=== PATIENT | female | born 1955 | race Caucasian/White ===

== ENCOUNTER 2018-01-28 20:43 | Emergency (ER) | payer OTHER, SELFPAY ==
[2018-01-28 20:56] VITALS: BP 156/69; PULSE 93; RESP 16; TEMP 37.4; O2SAT 97; BMI 38.7
[2018-01-28 21:05] VITALS: BP 156/69; PULSE 93; RESP 16; TEMP 37.4; O2SAT 97; BMI 38.7
--- NOTE | 2018-01-28 21:05 | ED_ITS ---
HPI - Skin/Abscess/Foreign Bdy <NATACHA Mathew - Last Filed: 01/28/18 21:50> General Chief complaint: Skin/Abscess/Foreign Body Stated complaint: CAT BITE LEFT HAND Time Seen by Provider: 01/28/18 21:04 History of Present Illness HPI narrative: 62-year-old female here for complaint of a cat bite to to her right palmar area over the 1st metacarpal area day before yesterday. Cat is the patient's cat She states that the cat superficially bit her to that area. She states that she cleanse the area well and had no complications until today when she started known noticing increased redness to that area progressing into the right wrist area. She denies any purulent drainage from the area. She denies any fevers or chills. She states that the cat's immunizations were not up -to-date prior to day before yesterday. Patient reports her tetanus shot is up- to-date. Related Data Home Medications Medication Instructions Recorded Confirmed ascorbic acid (vitamin C) #0 09/21/17 Previous Rx's Medication Instructions Recorded simvastatin 20 mg PO HS #90 tab 02/27/17 alprazolam 0.25 mg PO Q8HP PRN #20 tab 03/22/17 citalopram 20 mg PO QDAY #90 tab 03/22/17 hydrocodone-acetaminophen [[place]] 1 - 2 tab PO Q6HP PRN #30 tab 03/22/17 trazodone 100 mg PO HS #90 tab 03/22/17 amoxicillin-pot clavulanate 1 tab PO BID #14 tab 01/28/18 Allergies Allergy/AdvReac Type Severity Reaction Status Date / Time sumatriptan AdvReac Mild HEART Verified 01/28/18 21:47 PALPITATION tamoxifen AdvReac Mild MOOD CHANGE Verified 01/28/18 21:47 Review of Systems <NATACHA Mathew - Last Filed: 01/28/18 21:50> Constitutional Denies chills, Denies fever(s), Denies lethargy and Denies weakness Eyes Denies change in vision, Denies eye discharge, Denies irritation and Denies loss of vision ENT Ears, Nose, Mouth, and Throat: Denies change in voice, Denies neck pain and Denies sore throat Cardiovascular Denies chest pain, Denies irregular heart rhythm, Denies lightheadedness, Denies palpitations, Denies dyspnea, Denies dyspnea on exertion and Denies orthopnea Respiratory Denies cough, Denies dyspnea, Denies dyspnea on exertion and Denies wheezing Gastrointestinal Gastrointestinal: Denies abdominal pain, Denies change in bowel habits, Denies diarrhea, Denies nausea and Denies vomiting Genitourinary Denies hematuria, Denies flank pain, Denies urinary incontinence and Denies urinary urgency Musculoskeletal Denies neck pain Comments: Cat bite to right palm Neurologic Denies loss of vision and Denies weakness Endocrine Denies palpitations Allergic/Immunologic Denies wheezing Exam <NATACHA Mathew - Last Filed: 01/28/18 21:50> Initial Vital Signs Initial Vital Signs: Vital Signs Temperature 99.3 F 01/28/18 20:56 Pulse Rate 93 H 01/28/18 20:56 Respiratory Rate 16 01/28/18 20:56 Blood Pressure 156/69 H 01/28/18 20:56 Pulse Oximetry 97 01/28/18 20:56 Const General: cooperative and well developed Nutritional Appearance: well nourished Orientation: alert, awake, oriented x3 and not confused [facility] Mouth: oral mucosae normal and moist mucous membranes Eyes Conjunctivae: conjunctivae normal Sclera: sclerae normal Pupils: PERRL EOM: EOM intact bilaterally Resp Effort & Inspection: normal respiratory effort, able to speak in complete sentences, no respiratory distress and no use of accessory muscles Auscultation: clear to auscultation bilaterally, no rales, no rhonchi and no wheezes Cardio Rate: regular rate Rhythm: regular rhythm Heart Sounds: no click, no gallops, no murmurs and no rubs Pulses: normal peripheral pulses Skin General: no rashes or lesions noted, No jaundice and No petechiae Extrem Other: Small approximately 4 mm shallow puncture wound to the right palmar area with surrounding erythema. No purulent drainage. Erythema compresses and to the right forearm area. Distal sensation is intact. Distal range of motion is intact. Distal cap refill less than 2 sec. <Luis Briscoe DO - Last Filed: 01/29/18 04:15> Initial Vital Signs Initial Vital Signs: Vital Signs Temperature 99.3 F 01/28/18 20:56 Pulse Rate 93 H 01/28/18 20:56 Respiratory Rate 16 01/28/18 20:56 Blood Pressure 156/69 H 01/28/18 20:56 Pulse Oximetry 97 01/28/18 20:56 Course <NATACHA Mathew - Last Filed: 01/28/18 21:50> Orders Ordered: Discontinued Medications Amoxicillin/Clavulanate Potassium (Augmentin 875-125 Mg) 1 tab PO NOW ONE Stop: 01/28/18 21:19 Last Admin: 01/28/18 21:34 Dose: 1 tab Vital Signs - 8 hr 01/28/18 20:56 01/28/18 21:05 01/28/18 21:55 Temperature 99.3 F 99.3 F 97.6 F Pulse Rate 93 H 93 H 84 Respiratory Rate 16 16 16 Blood Pressure 156/69 H 156/69 H 137/72 H Pulse Oximetry 97 97 95 <Luis Briscoe DO - Last Filed: 01/29/18 04:15> Orders Ordered: Discontinued Medications Amoxicillin/Clavulanate Potassium (Augmentin 875-125 Mg) 1 tab PO NOW ONE Stop: 01/28/18 21:19 Last Admin: 01/28/18 21:34 Dose: 1 tab Vital Signs - 8 hr 01/28/18 20:56 01/28/18 21:05 01/28/18 21:55 Temperature 99.3 F 99.3 F 97.6 F Pulse Rate 93 H 93 H 84 Respiratory Rate 16 16 16 Blood Pressure 156/69 H 156/69 H 137/72 H Pulse Oximetry 97 97 95 MDM - Skin/Abscess/Foreign Bdy <NATACHA Mathew - Last Filed: 01/28/18 21:50> MDM Narrative Medical decision making narrative: Starting mild infection to the right palmar/ wrist area secondary to cat bite will treat with Augmentin with close follow up with primary care provider in the next couple of days for re-evaluation to ensure efficacy. If worsening symptoms follow up sooner or return to the emergency room. low risk for rabies. [id number] Tylenol as needed for any discomfort. For any worsening symptoms return to the emergency room. Patient reports that her tetanus shot is up-to-date. Discharge Plan Departure Patient Disposition: Home, Self-Care Clinical Impression: Cat bite of right hand Discharge Date/Time: 01/28/18 21:56 Interventions: ED Discharge Assessment Last Done: 01/28/18 21:55 Instructions: DI for Cat Bite Activity Restrictions/Additional Instructions: Signs and symptoms presents as infection secondary to a cat bite. You have been placed on oral antibiotics use as directed. Follow up with her primary care provider in the next day or 2 for re-evaluation. For any worsening symptoms return to the emergency room or see her primary care provider sooner. Use [id number] Tylenol as needed for any discomfort. Prescriptions: New amoxicillin-pot clavulanate 875-125 mg tablet 1 tab PO BID Qty: 14 RF: 0 No Action simvastatin 20 MG tablet 20 mg PO HS Qty: 90 RF: 3 hydrocodone-acetaminophen [[place]] 5 MG/325 MG tablet 1 - 2 tab PO Q6HP PRNQty: 30 RF: 0 alprazolam 0.25 MG tablet 0.25 mg PO Q8HP PRNQty: 20 RF: 0 citalopram 20 MG tablet 20 mg PO QDAY Qty: 90 RF: 3 trazodone 100 MG tablet 100 mg PO HS Qty: 90 RF: 3 ascorbic acid (vitamin C) 500 MG tablet Qty: 0 RF: 0 Referrals: Ahsan Pittman MD [Primary Care Provider] - <Luis Briscoe DO - Last Filed: 01/29/18 04:15> Cosign ED Attending Fatmataature Attestation: I was immediately available in the department for consultation. Documentation has been reviewed. I agree with assessment and plan.
--- NOTE | 2018-01-28 21:08 | PC.NURSE ---
PT states her cat bit right thumb area, concerned about infection, area is red and begining to radiate to forearm with 4/10 pain. Tx dev technical mgr surgical scrub, listerine and neosporin. States upto date on tetanus.
[2018-01-28] MEDS: AMOXICILLIN/CLAV 875/125 MG 1 TAB PO (21:34)
[2018-01-28 21:55] VITALS: BP 137/72; PULSE 84; RESP 16; TEMP 36.4; O2SAT 95
== END 2018-01-28 21:56 | disposition home or self-care (01) ==
PROVIDERS: Emergency Provider Nurse Practitioner Family; Family Provider Family Medicine; PCP Family Medicine
DX: S61.452A Open bite of left hand, initial encounter (principal); W55.01XA Bitten by cat, initial encounter
CPT/HCPCS: 99282; 99283

== ENCOUNTER → 2018-03-01 10:51 | Outpatient (CLI) | payer OTHER, SELFPAY ==
--- NOTE | 2018-03-01 | DI.MG.S_ITS ---
BILATERAL DIGITAL SCREENING MAMMOGRAM 3D/2D WITH CAD POST LUMPECTOMY: 03/01/2018 CLINICAL: Routine screening. Personal history of right breast cancer. Family history of breast cancer. Comparison is made to exams dated: 01/27/2017 mammogram, 01/27/2016 mammogram, and 01/20/2015 mammogram - [facility]. The tissue of both breasts is heterogeneously dense. This may lower the sensitivity of mammography. Current study was also evaluated with a Computer Aided Detection (CAD) system. No significant masses, calcifications, or other findings are seen in either breast. There has been no significant interval change. IMPRESSION: NEGATIVE There is no mammographic evidence of malignancy. A 1 year screening mammogram is recommended. This exam was interpreted at Station ID: [id number]. NOTE: For mammograms, a report in lay terms will be sent to the patient. Approximately 15% of breast malignancies will not be visualized mammographically. In the management of a palpable breast mass, a negative mammogram must not discourage biopsy of a clinically suspicious lesion. Electronically Signed By: Vee brody/angella:03/01/2018 11:20:05 letter sent: Normal Exam ACR BI-RADS Category 1: Negative 3341F
== END ==
PROVIDERS: PCP Family Medicine; Visit Provider Family Medicine
DX: Z12.31 Encounter for screening mammogram for malignant neoplasm of breast (principal); Z85.3 Personal history of malignant neoplasm of breast; Z80.3 Family history of malignant neoplasm of breast
CPT/HCPCS: 77063; 77067

== ENCOUNTER → 2018-04-16 11:28 | Outpatient (CLI) | payer OTHER, SELFPAY ==
[2018-04-16 12:34] LABS: Add Manual Diff / Slide Review NO; Basophils Percent Auto 0.9 % (0-2); Hematocrit 40.2 % (36-46); Hemoglobin 13.7 g/dL (12.0-16.0); Lymphocytes Percent Auto 21.9 % (25-40); Mean Corpuscular HGB Conc 34.1 % (30-36); Mean Corpuscular Hemoglobin 31.1 PG (26-34); Mean Corpuscular Volume 91.2 fL (80-100); Monocytes Percent Auto 6.6 % (3-14); Neutrophils Absolute Auto 2700 /uL (3000-5900); Neutrophils Percent Auto 67.6 % (50-75); Platelet Count 164 X10^3/uL (150-400); Red Blood Cell Count 4.41 X10^6/uL (4.0-5.2); Red Cell Distribution Width 13.1 % (11.6-14.8)
[2018-04-16 12:38] LABS: Alanine Aminotransferase 22 IU/L (9-52); Albumin 4.2 g/dL (3.5-5.0); Albumin Globulin Ratio 1.4 (1.0-2.8); Alkaline Phosphatase 79 U/L (38-126); Aspartate Aminotransferase 18 IU/L (14-36); BUN Creatinine Ratio 18.9 (6-22); Bilirubin Total 0.6 mg/dL (0.2-1.3); Blood Urea Nitrogen 17 mg/dL (7-17); Calcium 9.3 mg/dL (8.4-10.2); Carbon Dioxide 31 mmol/L (22-32); Chloride 104 mmol/L (98-107); Cholesterol 160 mg/dL (140-199); Estimated Glomerular Filt Rate > 60.0 mL/min (>60); Glucose 103 mg/dL (80-110); HDL Cholesterol 49 mg/dL (40-60); HEMOLYSIS < 15 (0-50); LDL Cholesterol Calculated 98 mg/dL (<100); Potassium 4.6 mmol/L (3.4-5.1); Sodium 142 mmol/L (137-145); Total Protein 7.2 g/dL (6.3-8.2); Triglycerides 65 mg/dL (35-150)
[2018-04-16 13:10] LABS: Thyroid Stimulating Hormone 0.97 uIU/mL (0.47-4.68)
== END ==
PROVIDERS: PCP Family Medicine; Visit Provider Family Medicine
DX: Z00.00 Encounter for general adult medical examination without abnormal findings (principal)
CPT/HCPCS: 36415; 80053; 80061; 84443; 85025

== ENCOUNTER → 2018-06-22 11:02 | Outpatient (CLI) | payer OTHER, SELFPAY ==
--- NOTE | 2018-06-21 10:40 | ONC.SCHED ---
Joanie at [facility] is putting new auth for this patient for upcoming visit
[2018-06-22 12:08] LABS: Alanine Aminotransferase 31 IU/L (9-52); Albumin 4.3 g/dL (3.5-5.0); Albumin Globulin Ratio 1.4 (1.0-2.8); Alkaline Phosphatase 78 U/L (38-126); Aspartate Aminotransferase 22 IU/L (14-36); BUN Creatinine Ratio 25.6 (6-22); Bilirubin Total 0.4 mg/dL (0.2-1.3); Blood Urea Nitrogen 23 mg/dL (7-17); Calcium 9.2 mg/dL (8.4-10.2); Carbon Dioxide 26 mmol/L (22-32); Chloride 104 mmol/L (98-107); Estimated Glomerular Filt Rate > 60.0 mL/min (>60); Glucose 100 mg/dL (80-110); HEMOLYSIS < 15 (0-50); Potassium 4.6 mmol/L (3.4-5.1); Sodium 141 mmol/L (137-145); Total Protein 7.3 g/dL (6.3-8.2)
--- NOTE | 2018-06-22 14:20 | PC.NURSE ---
pre visit labs stable, [place] 2729 pending. Provider visit 06/27
[2018-06-23 15:40] LABS: Cancer Antigen 27.29 15 U/mL (< 38)
== END ==
PROVIDERS: PCP Family Medicine; Visit Provider Nurse Practitioner Gerontology
DX: Z85.3 Personal history of malignant neoplasm of breast (principal)
CPT/HCPCS: 36415; 80053; 86300

== ENCOUNTER → 2018-07-13 08:55 | Outpatient (CLI) | payer OTHER, SELFPAY ==
--- NOTE | 2018-07-13 08:58 | DI.US.S_ITS ---
ULTRASOUND OF RIGHT BREAST: 07/13/2018 CLINICAL: Palpable right breast lump felt by clinician only. Comparison is made to exams dated: 07/13/2018 mammogram, 03/01/2018 mammogram, 01/27/2017 mammogram, 01/27/2016 mammogram, and 08/03/2015 mammogram - [facility]. Color flow ultrasound of the right breast was performed on the areas of interest. Ruffin scale images of the real-time examination were reviewed. IMPRESSION: NEGATIVE There is no sonographic evidence of malignancy. There is no mammographic or sonographic abnormality seen in the right breast to correspond with the palpable abnormality, however, clinical followup is recommended. A 1 year screening mammogram is recommended. This exam was interpreted at Station ID: [id number]. Electronically Signed By: Vee Hodges M.D. lk/:07/13/2018 10:11:38 letter sent: Normal Exam Ultrasound BI-RADS: 1 Negative
--- NOTE | 2018-07-13 08:58 | DI.MG.S_ITS ---
UNILATERAL RIGHT DIGITAL DIAGNOSTIC MAMMOGRAM 3D/2D POST LUMPECTOMY: 07/13/2018 CLINICAL: Right breast lump. Comparison is made to exams dated: 03/01/2018 mammogram, 01/27/2017 mammogram, and 01/27/2016 mammogram - [facility]. The tissue of right breast is heterogeneously dense. This may lower the sensitivity of mammography. There is a benign post surgical scar in the right breast. No significant masses, calcifications, or other findings are seen in the breast. IMPRESSION: INCOMPLETE: NEEDS ADDITIONAL IMAGING EVALUATION There is no mammographic abnormality seen in the right breast to correspond with the palpable abnormality, however, targeted ultrasound of the right breast is recommended and will be performed immediately following this exam. This exam was interpreted at Station ID: [id number]. NOTE: For mammograms, a report in lay terms will be sent to the patient. Approximately 15% of breast malignancies will not be visualized mammographically. In the management of a palpable breast mass, a negative mammogram must not discourage biopsy of a clinically suspicious lesion. Electronically Signed By: Vee Hodges M.D. lk/:07/13/2018 09:33:37 letter sent: Additional Imaging Needed ACR BI-RADS Category 0: Incomplete 3340F
== END ==
PROVIDERS: PCP Family Medicine; Visit Provider Internal Medicine Hematology & Oncology
DX: R92.8 Other abnormal and inconclusive findings on diagnostic imaging of breast (principal); N63.10 Unspecified lump in the right breast, unspecified quadrant
CPT/HCPCS: 76642; 77065; G0279

== ENCOUNTER → 2018-07-19 15:00 | Oncology outpatient (ONC) | payer OTHER, SELFPAY ==
[2018-06-28 09:43] VITALS: BP 143/70; PULSE 90; RESP 18; TEMP 36.8; O2SAT 97
--- NOTE | 2018-06-28 09:59 | ONC.PN ---
PN -Subjective Interval history: 63-year-old female with previous history of right breast DCIS. She was diagnosed in 2004. Patient underwent right breast lumpectomy with right-sided lymph node dissection. Patient then received radiation treatment followed by 5 years of tamoxifen. Since then patient has been followed regularly. Patient presents here today for scheduled follow-up. Clinically patient reports good energy. Good appetite. No new bone pain. No SOB. No CP. A little bit bloated lately in the lower abdomen and it comes and goes. usually constipation, but loose for the last couple of weeks. Had mammogram in Mar 02, 2018. which was normal. A little bit more tired for the last couple of days. - Additional ROS All systems PM: reviewed and no additional remarkable complaints except as stated Home Medications and Allergies Home Medications Medication Instructions Recorded Confirmed Type cholecalciferol (vitamin D3) 1,000 1,000 unit PO DAILY 04/18/18 06/28/18 History unit capsule citalopram 20 mg tablet 20 mg PO QDAY #90 tab 04/18/18 06/28/18 Rx simvastatin 20 mg tablet 20 mg PO HS #90 tab 04/18/18 06/28/18 Rx tolterodine ER 4 mg 4 mg PO DAILY #30 cap 04/18/18 06/28/18 Rx capsule,extended release 24 hr trazodone 100 mg tablet 100 mg PO HS #90 tab 04/18/18 06/28/18 Rx hydrocodone 5 mg-acetaminophen 325 1 - 2 tab PO Q6HP PRN #42 tab 04/24/18 06/28/18 Rx mg tablet Allergies Allergy/AdvReac Type Severity Reaction Status Date / Time sumatriptan AdvReac Mild HEART Verified 04/18/18 14:14 PALPITATION tamoxifen AdvReac Mild MOOD CHANGE Verified 04/18/18 14:14 Exam Vital signs: Last Vital Signs Temp 98.2 F 06/28/18 09:43 Pulse 90 06/28/18 09:43 Resp 18 06/28/18 09:43 BP 143/70 H 06/28/18 09:43 Pulse Ox 97 06/28/18 09:43 ECOG 1 - Constitutional positive no acute distress, positive obese, positive cooperative - Routine HEENT Exam Head: Present: normocephalic, atraumatic Eye: Present: EOMI, PERRL, normal accommodation. Absent: conjunctival icterus ENT: Present: mucous membranes moist - Routine Neck Exam Present: supple. Absent: JVD, lymphadenopathy, thyromegaly - Detailed Breast Exam left Inspection: Absent: peau d'orange, nipple discharge, area of retraction, discharge Palpation: Absent: mass, tenderness, induration right Inspection: Absent: peau d'orange, nipple discharge, area of retraction Comments: Between 12 and 3:00 a.m. at the right breast, there are irregularly shaped lumpy breast tissues underneath the skin with some tenderness. - Routine Respiratory Exam Present: Clear to auscultation bilaterally. Absent: wheezes - Routine Cardiovascular Exam Present: RRR, S1, S2. Absent: murmur, gallop, rubs, S3 - Routine Abdominal Exam Present: soft, normoactive bowel sounds. Absent: tenderness, organomegaly - Routine Neurological Exam Present: alert, oriented X3, CN II-XII intact, normal reflexes, normal tone. Absent: sensory deficit, motor deficit - Routine Psychiatric Exam Present: normal affect, normal thought process, cooperative, good insight, good judgment Results - Labs Reviewed. - Imaging Additional studies: Procedures Insertion of intraocular lens prosthesis at time of cataract extraction, one-stage (06/24/14) Phacoemulsification and aspiration of cataract (06/24/14) Assessment and Plan (1) Ductal carcinoma in situ (DCIS) of right breast Problem details: Rright breast DCIS diagnosed in 2004, status post right breast lumpectomy with right-sided lymph node dissection, adjuvant radiation treatment followed by 5 years of tamoxifen Assessment and plan: Clinically I do not think there is any indication to suggest disease recurrence or metastasis. However on my physical examination, the right breast has an area between 12 and 3:00, which is irregular shaped and lumpy. I talked with the patient that it could represent post-surgical changes, for example, scar formation. I will proceed with a ultrasound study of that area and I will see the patient after the scan. If it is normal, I will see the patient once a year with mammogram.
[2018-07-19 15:46] VITALS: BP 151/75; PULSE 69; RESP 18; TEMP 36.7; O2SAT 98
--- NOTE | 2018-07-19 15:59 | ONC.PN ---
PN -Subjective Interval history: 63-year-old female with previous history of right breast DCIS. She was diagnosed in 2004. Patient underwent right breast lumpectomy with right-sided lymph node dissection. Patient then received radiation treatment followed by 5 years of tamoxifen. She had mammogram in Mar 02, 2018. which was normal. A little bit more tired for the last couple of days. During her previous visit on 06/28/2018, on physical examination there were irregularly shaped tender lumpy breast tissues between 12 and 3:00 a.m. in the right breast. Therefore on 07/13/2018 patient underwent dedicated mammogram as well as sonogram. There is no sonographic evidence of malignancy and there is no mammographic or sonographic abnormality in the right breast. Patient presents here today for follow-up of the results. Clinically, patient did not report any new signs or symptoms. - Additional ROS All systems PM: reviewed and no additional remarkable complaints except as stated Home Medications and Allergies Home Medications Medication Instructions Recorded Confirmed Type cholecalciferol (vitamin D3) 1,000 1,000 unit PO DAILY 04/18/18 06/28/18 History unit capsule citalopram 20 mg tablet 20 mg PO QDAY #90 tab 04/18/18 06/28/18 Rx simvastatin 20 mg tablet 20 mg PO HS #90 tab 04/18/18 06/28/18 Rx tolterodine ER 4 mg 4 mg PO DAILY #30 cap 04/18/18 06/28/18 Rx capsule,extended release 24 hr trazodone 100 mg tablet 100 mg PO HS #90 tab 04/18/18 06/28/18 Rx hydrocodone 5 mg-acetaminophen 325 1 - 2 tab PO Q6HP PRN #42 tab 04/24/18 06/28/18 Rx mg tablet Allergies Allergy/AdvReac Type Severity Reaction Status Date / Time sumatriptan AdvReac Mild HEART Verified 04/18/18 14:14 PALPITATION tamoxifen AdvReac Mild MOOD CHANGE Verified 04/18/18 14:14 Exam Vital signs: Last Vital Signs Temp 98.0 F 07/19/18 15:46 Pulse 69 07/19/18 15:46 Resp 18 07/19/18 15:46 BP 151/75 H 07/19/18 15:46 Pulse Ox 98 07/19/18 15:46 ECOG 1 Narrative: Constitutional: WDWN, NAD, obese, well groomed, pleasant and cooperative. HEENT: NCAT, EOMI, PERRLA, anicteric sclera, no hearing difficulty; Oral mucus membrane moist and without ulcers. Neck: Supple, symmetrical, and tracheal midline; No palpable thyromegaly and no palpable lymph nodes. Respiratory: No use of accessory muscles. Clear to auscultation, and no wheezes or rales or rubs. Cardiovascular: Regular rate and rhythm, S1 and S2 normal, no murmurs gallops or rubs. No JVD. No pitting edema of lower extremities. Abdomen: Soft, nontender, non-distended, bowel sounds normal, no palpable organomegaly, no hernia, no palpable masses. Lower extremities: No palpable pedal edema. Lymphatic: no palpable lymph nodes in the neck, axillae, or groins. Musculoskeletal: normal gait and station, no clubbing, no cyanosis, no pitting edema. Skin: no rashes, no ulcers, no petechiae Neurological: Awake and alert and oriented x3. CN II-XII grossly intact. No focal motor or sensory deficit. Psychiatric: Good judgment, good insight, normal affect, normal thought process, cooperative, no depression, no anxiety. Breast exam: deferred Results - Labs Mammogram and sonogram results were reviewed with patient. - Imaging Additional studies: Procedures Insertion of intraocular lens prosthesis at time of cataract extraction, one-stage (06/24/14) Phacoemulsification and aspiration of cataract (06/24/14) Assessment and Plan (1) Ductal carcinoma in situ (DCIS) of right breast Problem details: Rright breast DCIS diagnosed in 2004, status post right breast lumpectomy with right-sided lymph node dissection, adjuvant radiation treatment followed by 5 years of tamoxifen Assessment and plan: I reviewed the mammogram as well as the sonogram results with the patient. I talked with her that there is no evidence to suggest any abnormal findings. I talked to her that the results are very reassuring. I will have her come back after her next yearly mammogram screening in Feb 2019.
--- NOTE | 2018-07-19 16:04 | P.PNONC_ITS ---
PN -Subjective Interval history: 63-year-old female with previous history of right breast DCIS. She was diagnosed in 2004. Patient underwent right breast lumpectomy with right-sided lymph node dissection. Patient then received radiation treatment followed by 5 years of tamoxifen. She had mammogram in Mar 02, 2018. which was normal. A little bit more tired for the last couple of days. During her previous visit on 06/28/2018, on physical examination there were irregularly shaped tender lumpy breast tissues between 12 and 3:00 a.m. in the right breast. Therefore on 2017 patient underwent dedicated mammogram as well as sonogram. There is no sonographic evidence of malignancy and there is no mammographic or sonographic abnormality in the right breast. Patient presents here today for follow-up of the results. Clinically, patient did not report any new signs or symptoms. - Additional ROS All systems PM: reviewed and no additional remarkable complaints except as stated Home Medications and Allergies Home Medications Medication Instructions Recorded Confirmed Type cholecalciferol (vitamin D3) 1,000 1,000 unit PO DAILY 04/18/18 06/28/18 History unit capsule citalopram 20 mg tablet 20 mg PO QDAY #90 tab 04/18/18 06/28/18 Rx simvastatin 20 mg tablet 20 mg PO HS #90 tab 04/18/18 06/28/18 Rx tolterodine ER 4 mg 4 mg PO DAILY #30 cap 04/18/18 06/28/18 Rx capsule,extended release 24 hr trazodone 100 mg tablet 100 mg PO HS #90 tab 04/18/18 06/28/18 Rx hydrocodone 5 mg-acetaminophen 325 1 - 2 tab PO Q6HP PRN #42 tab 04/24/18 Rx mg tablet Allergies Allergy/AdvReac Type Severity Reaction Status Date / Time sumatriptan AdvReac Mild HEART Verified 04/18/18 14:14 PALPITATION tamoxifen AdvReac Mild MOOD CHANGE Verified 04/18/18 14:14 Exam Vital signs: Last Vital Signs Temp 98.0 F 07/19/18 15:46 Pulse 69 07/19/18 15:46 Resp 18 07/19/18 15:46 BP 151/75 H 07/19/18 15:46 Pulse Ox 98 07/19/18 15:46 ECOG 1 Narrative: Constitutional: WDWN, NAD, obese, well groomed, pleasant and cooperative. HEENT: NCAT, EOMI, PERRLA, anicteric sclera, no hearing difficulty; Oral mucus membrane moist and without ulcers. Neck: Supple, symmetrical, and tracheal midline; No palpable thyromegaly and no palpable lymph nodes. Respiratory: No use of accessory muscles. Clear to auscultation, and no wheezes or rales or rubs. Cardiovascular: Regular rate and rhythm, S1 and S2 normal, no murmurs gallops or rubs. No JVD. No pitting edema of lower extremities. Abdomen: Soft, nontender, non-distended, bowel sounds normal, no palpable organomegaly, no hernia, no palpable masses. Lower extremities: No palpable pedal edema. Lymphatic: no palpable lymph nodes in the neck, axillae, or groins. Musculoskeletal: normal gait and station, no clubbing, no cyanosis, no pitting edema. Skin: no rashes, no ulcers, no petechiae Neurological: Awake and alert and oriented x3. CN II-XII grossly intact. No focal motor or sensory deficit. Psychiatric: Good judgment, good insight, normal affect, normal thought process , cooperative, no depression, no anxiety. Breast exam: deferred Results - Labs Mammogram and sonogram results were reviewed with patient. - Imaging Additional studies: Procedures Insertion of intraocular lens prosthesis at time of cataract extraction, one- stage (06/24/14) Phacoemulsification and aspiration of cataract (06/24/14) Assessment and Plan (1) Ductal carcinoma in situ (DCIS) of right breast Problem details: Rright breast DCIS diagnosed in 2004, status post right breast lumpectomy with right-sided lymph node dissection, adjuvant radiation treatment followed by 5 years of tamoxifen Assessment and plan: I reviewed the mammogram as well as the sonogram results with the patient. I talked with her that there is no evidence to suggest any abnormal findings. I talked to her that the results are very reassuring. I will have her come back after her next yearly mammogram screening in Feb 2019.
== END ==
PROVIDERS: PCP Family Medicine; Visit Provider Internal Medicine Hematology & Oncology
DX: Z09 Encounter for follow-up examination after completed treatment for conditions other than malignant neoplasm (principal); Z86.000 Personal history of in-situ neoplasm of breast
CPT/HCPCS: 99213; 99214

== ENCOUNTER → 2019-04-24 09:04 | Outpatient (CLI) | payer OTHER, SELFPAY ==
--- NOTE | 2019-04-24 | DI.MG.S_ITS ---
BILATERAL DIGITAL SCREENING MAMMOGRAM 3D/2D WITH CAD: 04/24/2019 CLINICAL: Routine screening. Personal history of right breast cancer. Family history of breast cancer. Comparison is made to exams dated: 03/01/2018 mammogram, 01/27/2017 mammogram, and 01/27/2016 mammogram - [facility]. The tissue of both breasts is heterogeneously dense. This may lower the sensitivity of mammography. Current study was also evaluated with a Computer Aided Detection (CAD) system. No significant masses, calcifications, or other findings are seen in either breast. There has been no significant interval change. IMPRESSION: NEGATIVE There is no mammographic evidence of malignancy. A 1 year screening mammogram is recommended. This exam was interpreted at Station ID: [id number]. NOTE: For mammograms, a report in lay terms will be sent to the patient. Approximately 15% of breast malignancies will not be visualized mammographically. In the management of a palpable breast mass, a negative mammogram must not discourage biopsy of a clinically suspicious lesion. Electronically Signed By: Praneeth mendez/angella:04/24/2019 15:55:24 letter sent: Normal Exam ACR BI-RADS Category 1: Negative 3341F
[2019-04-24 09:39] LABS: Add Manual Diff / Slide Review NO; Basophils Absolute Auto 100 /uL (0-100); Basophils Percent Auto 1.4 % (0-2); Eosinophils Absolute Auto 100 /uL (0-450); Eosinophils Percent Auto 3.4 % (2-4); Hematocrit 39.7 % (36-46); Hemoglobin 13.5 g/dL (12.0-16.0); Lymphocytes Absolute Auto 1000 /uL (1100-4500); Lymphocytes Percent Auto 23.3 % (25-40); Mean Corpuscular Hemoglobin 30.9 PG (26-34); Mean Corpuscular Volume 90.8 fL (80-100); Monocytes Absolute Auto 300 /uL (0-900); Monocytes Percent Auto 7.6 % (3-14); Neutrophils Absolute Auto 2600 /uL (1500-7000); Neutrophils Percent Auto 64.3 % (50-75); Platelet Count 153 X10^3/uL (150-400); Red Blood Cell Count 4.37 X10^6/uL (4.0-5.2); Red Cell Distribution Width 13.1 % (11.6-14.8); White Blood Cell Count 4.1 X10^3/uL (4.5-11.0)
[2019-04-24 09:43] LABS: Appearance Urine UA CLEAR; Bilirubin Urine UA NEGATIVE (NEGATIVE); Color Urine UA YELLOW; Glucose Urine UA NEGATIVE (Negative); Ketones Urine UA NEGATIVE (NEGATIVE); Leukocyte Esterase Urine UA 2+ (NEGATIVE); Nitrite Urine UA NEGATIVE (Negative); Occult Blood Urine UA TRACE-LYSED (Negative); Protein Urine UA NEGATIVE (Negative); Specific Gravity Urine UA 1.015 (1.000-1.035); Urobilinogen Urine UA 0.2 E.U./dL (0.2)
[2019-04-24 09:56] LABS: Bacteria Urine Many (>30); Culture Indicated Urine Specimen Cultured; RBC Urine 1-5/HPF (0-5/HPF); Renal Epithelial Cells Urine 0-1/HPF (0-1/HPF); Squamous Epithelial Cell Urine 1-5 /HPF (0-5/HPF); Transitional Epi Cells Urine 1-5/HPF (0-5/HPF); WBC Urine 10-30/HPF (0-5/HPF)
[2019-04-24 10:00] LABS: Hemoglobin A1C% w Est Avg Glu 5.4 % (4.0-6.0)
[2019-04-24 10:16] LABS: Alanine Aminotransferase 26 IU/L (9-52); Albumin 4.2 g/dL (3.5-5.0); Albumin Globulin Ratio 1.6 (1.0-2.8); Alkaline Phosphatase 89 U/L (38-126); Aspartate Aminotransferase 23 IU/L (14-36); BUN Creatinine Ratio 26.3 (6-22); Bilirubin Total 0.6 mg/dL (0.2-1.3); Blood Urea Nitrogen 21 mg/dL (7-17); Calcium 9.4 mg/dL (8.4-10.2); Carbon Dioxide 28 mmol/L (22-32); Chloride 105 mmol/L (98-107); Cholesterol 179 mg/dL (140-199); Estimated Glomerular Filt Rate > 60.0 mL/min (>60); Globulin 2.7 g/dL (1.7-4.1); Glucose 90 mg/dL (80-110); HDL Cholesterol 50 mg/dL (40-60); HEMOLYSIS < 15 (0-50); LDL Cholesterol Calculated 113 mg/dL (<100); Potassium 4.4 mmol/L (3.4-5.1); Sodium 139 mmol/L (137-145); Total Protein 6.9 g/dL (6.3-8.2); Triglycerides 81 mg/dL (35-150)
[2019-04-24 10:38] LABS: Thyroid Stimulating Hormone 2.41 uIU/mL (0.47-4.68)
== END ==
PROVIDERS: PCP Family Medicine; Visit Provider Family Medicine
DX: Z01.818 Encounter for other preprocedural examination (principal); Z01.812 Encounter for preprocedural laboratory examination; Z13.1 Encounter for screening for diabetes mellitus; Z12.31 Encounter for screening mammogram for malignant neoplasm of breast; D05.11 Intraductal carcinoma in situ of right breast; Z80.3 Family history of malignant neoplasm of breast; N39.9 Disorder of urinary system, unspecified; R73.9 Hyperglycemia, unspecified
CPT/HCPCS: 36415; 77063; 77067; 80053; 80061; 81001; 83036; 84443; 85025; 87086; 93005

== ENCOUNTER → 2019-07-10 10:04 | Outpatient (CLI) | payer OTHER, SELFPAY ==
--- NOTE | 2019-07-10 | DI.US.S_ITS ---
PROCEDURE: US PERIPH VENOUS LOW EXTREM LT INDICATIONS: PAIN IN LEFT LEG, S/P PARTIAL KNEE REPLACEMENT 05-29-19 TECHNIQUE: Real-time imaging, as well as color and pulse Doppler interrogation, were performed of the lower extremity deep veins from the inguinal ligament to the popliteal fossa. COMPARISON: None. FINDINGS: The common femoral, femoral and popliteal veins are normally compressible, and free of intraluminal thrombus. Color and pulse Doppler demonstrate normal phasic intraluminal flow. There is normal augmentation response to distal compression maneuver. IMPRESSION: No DVT found left leg. Dictated by: Drake Vigil M.D. on 07/10/2019 at 15:06 Approved by: Drake Vigil M.D. on 07/10/2019 at 15:07
== END ==
PROVIDERS: Family Provider Family Medicine; PCP Family Medicine; Visit Provider Orthopaedic Surgery
DX: M79.605 Pain in left leg (principal); Z96.652 Presence of left artificial knee joint
CPT/HCPCS: 93971

== ENCOUNTER → 2019-09-04 12:28 | Outpatient (CLI) | payer OTHER, SELFPAY ==
[2019-09-04 13:25] LABS: Add Manual Diff / Slide Review NO; Basophils Absolute Auto 0 /uL (0-100); Basophils Percent Auto 0.8 % (0-2); Eosinophils Absolute Auto 100 /uL (0-450); Eosinophils Percent Auto 2.7 % (2-4); Hematocrit 41.4 % (36-46); Lymphocytes Absolute Auto 900 /uL (1100-4500); Mean Corpuscular HGB Conc 33.8 % (30-36); Mean Corpuscular Hemoglobin 30.5 PG (26-34); Mean Corpuscular Volume 90.4 fL (80-100); Monocytes Absolute Auto 400 /uL (0-900); Neutrophils Absolute Auto 3900 /uL (1500-7000); Neutrophils Percent Auto 72.5 % (50-75); Platelet Count 185 X10^3/uL (150-400); Red Blood Cell Count 4.58 X10^6/uL (4.0-5.2); Red Cell Distribution Width 13.2 % (11.6-14.8); White Blood Cell Count 5.3 X10^3/uL (4.5-11.0)
[2019-09-04 14:09] LABS: BUN Creatinine Ratio 22.2 (6-22); Blood Urea Nitrogen 20 mg/dL (7-17); Calcium 9.7 mg/dL (8.4-10.2); Carbon Dioxide 27 mmol/L (22-32); Chloride 102 mmol/L (98-107); Estimated Glomerular Filt Rate > 60.0 mL/min (>60); Glucose 96 mg/dL (80-110); HEMOLYSIS < 15 (0-50); Potassium 4.4 mmol/L (3.4-5.1); Sodium 140 mmol/L (137-145)
[2019-09-06 15:09] LABS: Cancer Antigen 27.29 18 U/mL (< 38)
== END ==
PROVIDERS: Family Provider Family Medicine; PCP Family Medicine; Visit Provider Family Medicine
DX: D05.11 Intraductal carcinoma in situ of right breast (principal); R30.0 Dysuria; R39.15 Urgency of urination
CPT/HCPCS: 36415; 80048; 85025; 86300; 87086

== ENCOUNTER → 2019-09-04 12:33 | Outpatient (CLI) | payer OTHER, SELFPAY ==
--- NOTE | 2019-09-04 12:35 | DI.RAD.S_ITS ---
PROCEDURE: XR ANKLE LT MIN 3V INDICATIONS: pain TECHNIQUE: 3 views of the ankle were acquired. COMPARISON: None. FINDINGS: Bones: No fractures or dislocations. Ankle mortise is normally aligned. No suspicious bony lesions. Tiny calcific density projected in the subcutaneous soft tissues of the hindfoot, however no definite donor site and this finding technically indeterminate. Chronic plantar calcaneal spur. Diffuse hindfoot and midfoot degenerative sclerosis and spurring Soft tissues: No tibiotalar joint effusion. Achilles tendon appears normal. IMPRESSION: No definite fracture. If the patient's symptoms do not improve recommend followup radiographs in 10 days to assess for healing sclerosis/occult injury. A punctate calcific density projecting in the soft tissues of the lateral hindfoot is doubtful fracture fragment, probably dystrophic although technically indeterminate. Dictated by: Buddy Espinoza M.D. on 09/04/2019 at 14:45 Approved by: Buddy Espinoza M.D. on 09/04/2019 at 14:55
--- NOTE | 2019-09-04 12:35 | DI.RAD.S_ITS ---
PROCEDURE: XR SHOULDER LT MIN 2V INDICATIONS: pain TECHNIQUE: 3 views of the shoulder were acquired. COMPARISON: None. FINDINGS: Bones: No fractures or dislocations. No suspicious bony lesions. Visualized ribs appear intact. Minimal degenerative spurring and subchondral sclerosis. Soft tissues: No suspicious soft tissue calcifications. IMPRESSION: Mild degenerative joint disease If the patient's pain or other symptoms persist, consider further evaluation with MRI Dictated by: Buddy Espinoaz M.D. on 09/04/2019 at 14:55 Approved by: Buddy Espinoza M.D. on 09/04/2019 at 14:57
== END ==
PROVIDERS: Family Provider Family Medicine; PCP Family Medicine; Referring Provider Family Medicine; Visit Provider Family Medicine
DX: D05.11 Intraductal carcinoma in situ of right breast (principal); R30.0 Dysuria; R39.15 Urgency of urination; M25.572 Pain in left ankle and joints of left foot; M77.31 Calcaneal spur, right foot; M25.512 Pain in left shoulder; M19.012 Primary osteoarthritis, left shoulder
CPT/HCPCS: 36415; 73030; 73610; 80048; 85025; 86300; 87086

== ENCOUNTER → 2020-04-25 14:58 | Outpatient (CLI) | payer OTHER, SELFPAY ==
--- NOTE | 2020-04-25 | DI.MG.S_ITS ---
BILATERAL DIGITAL SCREENING MAMMOGRAM 3D/2D WITH CAD POST LUMPECTOMY: 04/25/2020 CLINICAL: Routine screening. Personal history of right breast cancer. Family history of breast cancer. Comparison is made to exams dated: 04/24/2019 mammogram, 03/01/2018 mammogram, and 01/27/2017 mammogram - [facility]. The tissue of both breasts is heterogeneously dense. This may lower the sensitivity of mammography. Current study was also evaluated with a Computer Aided Detection (CAD) system. No significant masses, calcifications, or other findings are seen in either breast. There has been no significant interval change. IMPRESSION: NEGATIVE There is no mammographic evidence of malignancy. A 1 year screening mammogram is recommended. This exam was interpreted at Station ID: [id number]. NOTE: For mammograms, a report in lay terms will be sent to the patient. Approximately 15% of breast malignancies will not be visualized mammographically. In the management of a palpable breast mass, a negative mammogram must not discourage biopsy of a clinically suspicious lesion. Electronically Signed By: Duane samaniego/angella:04/27/2020 09:58:17 letter sent: Normal Exam ACR BI-RADS Category 1: Negative 3341F
== END ==
PROVIDERS: Family Provider Family Medicine; PCP Family Medicine; Referring Provider Family Medicine; Visit Provider Family Medicine
DX: Z12.31 Encounter for screening mammogram for malignant neoplasm of breast (principal); Z85.3 Personal history of malignant neoplasm of breast; Z80.3 Family history of malignant neoplasm of breast
CPT/HCPCS: 77063; 77067

== ENCOUNTER → 2020-04-28 10:47 | Outpatient (CLI) | payer OTHER, SELFPAY ==
[2020-04-28 13:26] LABS: Add Manual Diff / Slide Review NO; Basophils Absolute Auto 0 /uL (0-100); Basophils Percent Auto 0.9 % (0-2); Eosinophils Absolute Auto 100 /uL (0-450); Eosinophils Percent Auto 3.7 % (2-4); Hematocrit 38.8 % (36-46); Lymphocytes Absolute Auto 800 /uL (1100-4500); Mean Corpuscular HGB Conc 33.5 % (30-36); Mean Corpuscular Hemoglobin 30.5 PG (26-34); Mean Corpuscular Volume 90.9 fL (80-100); Monocytes Absolute Auto 300 /uL (0-900); Monocytes Percent Auto 7.4 % (3-14); Neutrophils Absolute Auto 2400 /uL (1500-7000); Platelet Count 154 X10^3/uL (150-400); Red Blood Cell Count 4.27 X10^6/uL (4.0-5.2); Red Cell Distribution Width 13.2 % (11.6-14.8); White Blood Cell Count 3.7 X10^3/uL (4.5-11.0)
[2020-04-28 13:48] LABS: Alanine Aminotransferase 18 IU/L (<35); Albumin Globulin Ratio 1.4 (1.0-2.8); Alkaline Phosphatase 81 U/L (38-126); Aspartate Aminotransferase 22 IU/L (14-36); BUN Creatinine Ratio 16.7 (6-22); Bilirubin Total 0.5 mg/dL (0.2-1.3); Blood Urea Nitrogen 13 mg/dL (7-17); Carbon Dioxide 29 mmol/L (22-32); Chloride 106 mmol/L (98-107); Cholesterol 150 mg/dL (140-199); Estimated Glomerular Filt Rate > 60.0 mL/min (>60); Globulin 2.9 g/dL (1.7-4.1); Glucose 86 mg/dL (80-110); HDL Cholesterol 45 mg/dL (40-60); HEMOLYSIS < 15 (0-50); LDL Cholesterol Calculated 91 mg/dL (<100); Sodium 140 mmol/L (137-145); Total Protein 6.9 g/dL (6.3-8.2); Triglycerides 70 mg/dL (35-150)
[2020-04-28 14:15] LABS: Thyroid Stimulating Hormone 1.85 uIU/mL (0.47-4.68)
== END ==
PROVIDERS: Family Provider Family Medicine; PCP Family Medicine; Referring Provider Family Medicine; Visit Provider Family Medicine
DX: E78.2 Mixed hyperlipidemia (principal); Z13.29 Encounter for screening for other suspected endocrine disorder; Z85.9 Personal history of malignant neoplasm, unspecified
CPT/HCPCS: 36415; 80053; 80061; 84443; 85025

== ENCOUNTER → 2020-05-25 13:53 | Outpatient (CLI) | payer OTHER, SELFPAY | PROVIDERS: Family Provider Family Medicine; PCP Family Medicine; Referring Provider Family Medicine; Visit Provider Family Medicine | DX: M85.852 Other specified disorders of bone density and structure, left thigh (principal); Z78.0 Asymptomatic menopausal state; Z85.3 Personal history of malignant neoplasm of breast; Z82.62 Family history of osteoporosis; M19.90 Unspecified osteoarthritis, unspecified site | CPT/HCPCS: 77080 ==

== ENCOUNTER → 2021-05-24 15:06 | Outpatient (CLI) | payer OTHER, SELFPAY ==
--- NOTE | 2021-05-24 15:08 | DI.MG.S_ITS ---
BILATERAL DIGITAL SCREENING MAMMOGRAM 3D/2D WITH CAD: 05/24/2021 CLINICAL: Routine screening. Personal history of right breast cancer. Family history of breast cancer. Comparison is made to exams dated: 04/25/2020 mammogram, 04/24/2019 mammogram, and 03/01/2018 mammogram - [facility]. The tissue of both breasts is heterogeneously dense. This may lower the sensitivity of mammography. Current study was also evaluated with a Computer Aided Detection (CAD) system. No significant masses, calcifications, or other findings are seen in either breast. There has been no significant interval change. IMPRESSION: NEGATIVE There is no mammographic evidence of malignancy. A 1 year screening mammogram is recommended. This exam was interpreted at Station ID: [id number]. NOTE: For mammograms, a report in lay terms will be sent to the patient. Approximately 15% of breast malignancies will not be visualized mammographically. In the management of a palpable breast mass, a negative mammogram must not discourage biopsy of a clinically suspicious lesion. Electronically Signed By: Romeo musa/angella:05/24/2021 16:45:26 letter sent: Normal Exam ACR BI-RADS Category 1: Negative 3341F
== END ==
PROVIDERS: Family Provider Family Medicine; PCP Family Medicine; Referring Provider Family Medicine; Visit Provider Family Medicine
DX: Z12.31 Encounter for screening mammogram for malignant neoplasm of breast (principal); Z85.3 Personal history of malignant neoplasm of breast; Z80.3 Family history of malignant neoplasm of breast
CPT/HCPCS: 77063; 77067

== ENCOUNTER → 2021-07-02 10:43 | Outpatient (CLI) | payer OTHER, SELFPAY ==
[2021-07-02 11:48] LABS: COVID19 -Nasal RAPID Negative (Negative)
== END ==
PROVIDERS: Family Provider Family Medicine; PCP Family Medicine; Visit Provider Surgery
DX: Z01.812 Encounter for preprocedural laboratory examination (principal); Z20.822 Contact with and (suspected) exposure to COVID-19
CPT/HCPCS: 87635; C9803

== ENCOUNTER 2021-07-05 12:00 | Day surgery (SDC) | payer OTHER, SELFPAY ==
[2021-07-05] VITALS (7 sets, daily range): BP systolic 128–169; BP diastolic 68–90; PULSE 67–96; RESP 12–18; TEMP 35.9–36.7; O2SAT 82–97; BMI 38.9
[2021-07-05] MEDS: LACTATED RINGERS 1,000 ML 42 ML IV (12:42)
--- NOTE | 2021-07-05 13:03 | PM.HP.1 ---
History of Present Illness History of Present Illness Date Patient Seen: 07/05/21 Time Patient Seen: 13:03 Chief complaint: SD Narrative: Giulia is a 66-year-old woman who is here for colonoscopy. Her last colonoscopy was 5 years ago and was normal. Her mother had colon cancer. Patient History Medical History Acne (~1985) BRCA negative (~2004) Breast cancer (~2004) Chicken pox Knee problem (~2003) Measles Surgical History Anesthesia History of breast surgery (~2004) Status post wrist surgery (~2005) Family & Social History Family History Father Cancer Social History: household members spouse Tobacco & Substance use: Smoking Status Never smoker alcohol intake current Substance Use Type does not use Meds Home Medications and Allergies Home Medications Medication Instructions Recorded Confirmed Type Vitamin B12 PO 02/28/19 08/13/20 History Vitamin C PO 02/28/19 08/13/20 History cholecalciferol (vitamin D3) 25 2,000 unit PO DAILY cap 02/28/19 07/05/21 History mcg (1,000 unit) capsule melatonin 3 mg tablet 3 mg PO BEDTIME 02/28/19 07/05/21 History hydrocodone 5 mg-acetaminophen 325 1 - 2 tab PO Q6HP PRN #42 tab 05/04/20 07/05/21 Rx mg tablet ([place]) doxycycline hyclate 100 mg capsule 100 mg PO DAILY 08/13/20 07/05/21 History citalopram 20 mg tablet 20 mg PO QDAY #90 tab 05/27/21 07/05/21 Rx simvastatin 20 mg tablet 20 mg PO HS #90 tab 05/27/21 07/05/21 Rx trazodone 100 mg tablet 100 mg PO HS #90 tab 05/28/21 07/05/21 Rx Allergies Allergy/AdvReac Type Severity Reaction Status Date / Time sumatriptan AdvReac Mild HEART Verified 07/05/21 12:24 PALPITATION tamoxifen AdvReac Mild MOOD CHANGE Verified 07/05/21 12:24 Exam Vital Signs (past 8 hours): - 07/05/21 12:36 Temperature 98.1 F Pulse Rate 96 H Respiratory Rate 12 Blood Pressure 169/90 H Pulse Oximetry 82 L Oxygen Delivery Method Room Air Const General: anxious Orientation: alert and awake Eyes General: appearance normal, both eyes and all related structures Resp Effort & Inspection: normal respiratory effort Assessment & Plan Assessment and plan (1) Family history of colon cancer: Status: Acute Plan 66-year-old woman with a family history of colon cancer. She is here for her colonoscopy. She understands the risks and benefits and would like to proceed. Time Spent With Patient Critical Care time: I spent a total of [] minutes of critical care time on this patient's care today; this time is exclusive of procedural time.
--- NOTE | 2021-07-05 13:05 | PM.PREOP ---
Pre-operative Note COVID-19 COVID-19 status: Negative Result date/Date tested (Pos, Neg/Pending): 07/02/21 Interval Note History & Physical reviewed/Exam performed by Physician: Yes Changes to H&P: No ASA Class (for procedural sedation): II
[2021-07-05] MEDS: MIDAZOLAM 5 MG/5 ML VIAL IV (13:17)
[2021-07-05] MEDS: fentaNYL 250 MCG/5 ML INJ IV (13:17)
--- NOTE | 2021-07-05 13:32 | PM.OP.COLON ---
Operative Date/Time/Diagnoses Date of procedure: 07/05/21 Time of procedure: 13:33 Pre-op diagnosis: Family history of colon cancer Post-op diagnosis: same Procedure & Clinicians Study performed: Colonoscopy Same procedure as scheduled: Yes Indications: Family history of colon cancer Surgeon: Dany Pinzon Procedure Notes SCOAP/Timeout: Yes Procedure in detail: Procedure: The patient was brought to the endoscopy suite, placed in left lateral decubitus position. The patient was connected to monitoring devices. A time-out was performed. Sedation was administered. Once the patient was adequately sedated, a digital rectal exam was performed and was normal. The scope was then inserted and advanced to the cecum where the appendiceal orifice was identified and photographed. The scope was then slowly withdrawn over greater than 6 minutes. Mucosa was thoroughly inspected. There were no polyps. There were some small scattered diverticula in the sigmoid colon. The scope was retroflexed in the rectum. No other abnormalities were noted. The scope was straightened and removed. The patient was awakened and brought to recovery. Versed: 6 mg Fentanyl: 100 mcg EBL: 0 Findings: Scattered diverticula in the sigmoid colon Scope withdrawal time: 7 minutes Sedation minutes: 20 Findings: divertiulosis Post-procedure Recommendations: Colonoscopy in 5 years Disposition: PACU
== END 2021-07-05 14:40 | disposition home or self-care (01) ==
PROVIDERS: Surgery; Family Provider Family Medicine; PCP Family Medicine; Referring Provider Surgery; Visit Provider Surgery
PROC: 0DJD8ZZ Inspection of Lower Intestinal Tract, Via Natural or Artificial Opening Endoscopic (ICD-10-PCS; CPT 45378; principal; 2021-07-05 13:00)
DX: Z12.11 Encounter for screening for malignant neoplasm of colon (principal); Z80.0 Family history of malignant neoplasm of digestive organs; K57.30 Diverticulosis of large intestine without perforation or abscess without bleeding
CPT/HCPCS: G0105; 99152; J2250; J3010

== ENCOUNTER → 2021-07-12 10:59 | Outpatient (CLI) | payer OTHER, SELFPAY ==
[2021-07-12 12:05] LABS: Add Manual Diff / Slide Review NO; Basophils Absolute Auto 0 /uL (0-100); Eosinophils Absolute Auto 100 /uL (0-450); Eosinophils Percent Auto 2.4 % (2-4); Hematocrit 40.6 % (36-46); Hemoglobin 13.6 g/dL (12.0-16.0); Lymphocytes Absolute Auto 700 /uL (1100-4500); Lymphocytes Percent Auto 19.5 % (25-40); Mean Corpuscular HGB Conc 33.5 % (30-36); Mean Corpuscular Volume 89.5 fL (80-100); Monocytes Absolute Auto 200 /uL (0-900); Monocytes Percent Auto 6.5 % (3-14); Neutrophils Absolute Auto 2600 /uL (1500-7000); Neutrophils Percent Auto 70.6 % (50-75); Platelet Count 159 X10^3/uL (150-400); Red Blood Cell Count 4.54 X10^6/uL (4.0-5.2); Red Cell Distribution Width 13.6 % (11.6-14.8); White Blood Cell Count 3.7 X10^3/uL (4.5-11.0)
[2021-07-12 12:27] LABS: Alanine Aminotransferase 19 IU/L (<35); Albumin Globulin Ratio 1.5 (1.0-2.8); Alkaline Phosphatase 78 U/L (38-126); Aspartate Aminotransferase 22 IU/L (14-36); BUN Creatinine Ratio 16.5 (6-22); Bilirubin Total 0.4 mg/dL (0.2-1.3); Blood Urea Nitrogen 15 mg/dL (7-17); Calcium 9.3 mg/dL (8.4-10.2); Carbon Dioxide 30 mmol/L (22-32); Chloride 105 mmol/L (98-107); Cholesterol 168 mg/dL (140-199); Estimated Glomerular Filt Rate > 60.0 mL/min (>60); Globulin 2.6 g/dL (1.7-4.1); Glucose 109 mg/dL (80-110); HDL Cholesterol 59 mg/dL (40-60); HEMOLYSIS < 15 (0-50); LDL Cholesterol Calculated 94 mg/dL (<100); Potassium 4.1 mmol/L (3.4-5.1); Sodium 139 mmol/L (137-145); Total Protein 6.6 g/dL (6.3-8.2); Triglycerides 74 mg/dL (35-150)
[2021-07-12 12:56] LABS: Thyroid Stimulating Hormone 1.77 uIU/mL (0.47-4.68)
== END ==
PROVIDERS: Family Provider Family Medicine; PCP Family Medicine; Referring Provider Family Medicine; Visit Provider Family Medicine
DX: E78.2 Mixed hyperlipidemia (principal)
CPT/HCPCS: 36415; 80053; 80061; 84443; 85025

== ENCOUNTER → 2021-07-26 08:50 | Outpatient (CLI) | payer OTHER, SELFPAY ==
--- NOTE | 2021-07-26 08:52 | DI.RAD.S_ITS ---
PROCEDURE: XR HAND RT MIN 3V INDICATIONS: MIDDLE FINGER PAIN, BONY GROWTH TECHNIQUE: 3 views of the hand(s) acquired. COMPARISON: None. FINDINGS: Bones: No fractures or dislocations. Carpal bones are normally aligned. No suspicious bony lesions. Soft tissues: No suspicious soft tissue calcifications. IMPRESSION: No visualized mass. If concern persists, MRI is recommended. Dictated by: Khadra Abbott M.D. on 07/26/2021 at 11:53 Approved by: Khadra Abbott M.D. on 07/26/2021 at 11:56
== END ==
PROVIDERS: Family Provider Family Medicine; PCP Family Medicine; Referring Provider Family Medicine; Visit Provider Family Medicine
DX: M79.644 Pain in right finger(s) (principal)
CPT/HCPCS: 73130

== ENCOUNTER → 2021-08-09 11:48 | Outpatient (CLI) | payer OTHER, SELFPAY ==
[2021-08-09 14:11] LABS: COVID19 -Nasal RAPID Negative (Negative)
== END ==
PROVIDERS: Family Provider Family Medicine; PCP Family Medicine; Referring Provider Family Medicine; Visit Provider Family Medicine
DX: Z20.822 Contact with and (suspected) exposure to COVID-19 (principal)
CPT/HCPCS: 87635

== ENCOUNTER → 2021-08-09 11:53 | Outpatient (CLI) | payer OTHER, SELFPAY ==
--- NOTE | 2021-08-10 09:07 | PM.TREADMILL ---
Cardiac Stress Test Report Referral & Results Date Patient Seen: 08/10/21 Time Patient Seen: 09:00 Requesting provider: Paresh Radford Indication: New LBBB Rest ECG: Sinus rhythm with LBBB Procedure Note: After both written and verbal informed consent the patient had an IV started by the diagnostic imaging RN, and then was hooked up to the treadmill monitoring system. The Lexiscan material, and then the Cardiolite tracer, were administered sequentially. An additional 3 min was spent monitoring the patient while supine on the gurney. The patient had a normal response to all infused materials. Impression: Successful [place] protocol. Perfusion imaging pending. Please note: Actual ECG tracings can be found in the PACS system.
--- NOTE | 2021-08-10 18:13 | DI.NM.S_ITS ---
DATE OF SERVICE: 08/09/2021 PROCEDURE PERFORMED: Pharmacologic vasodilator stress and rest myocardial perfusion imaging with gating to assess ejection fraction and regional wall motion. INDICATIONS: The patient is a 66-year-old female with hyperlipidemia and left bundle branch block. CARDIAC STRESS: Per protocol, 0.4 mg of regadenoson was infused with a normal hemodynamic response. No chest discomfort was reported. She achieved a maximum heart rate of 116 BPM (75% of her predicted maximum). Her resting ECG shows sinus rhythm with a LBBB with associated ST-segment abnormalities. With stress, there were no significant changes. There were no arrhythmias. Per protocol, 25.7 mCi of technetium-99m Myoview was injected and she was imaged 20 minutes later using a gated SPECT acquisition protocol. The day prior while at rest, she had been injected with 24.7 mCi of technetium-99m Myoview and was imaged 30 minutes later, again using a gated SPECT acquisition protocol. FINDINGS: 1. Raw Data: There is fair myocardial tracer uptake with fairly prominent breast shadows noted which could produce significant attenuation artifact but there is no appreciable motion artifact. Lung/heart ratio is normal at 0.33 with a normal TID ratio of 0.96. 2. Quantitated Gated SPECT: Post-stress ejection fraction is estimated at 68%. There is a dyssynchronous contraction pattern consistent with a conduction abnormality and probable mild hypokinesis at the apex, particularly the anteroseptal apex and extending into the distal anterior wall. The resting ejection fraction is estimated at 67% with a similar contraction pattern without significant change from the stress images. Resting end-diastolic volume is normal at 95 mL. 3. Myocardial perfusion imaging: Post-stress supine images show a mild perfusion defect throughout the entire inferior wall from apex to base, but more profound distally. While this defect improves on the prone images proximally, the mid and distal inferior wall continues to have a perfusion defect. In addition, the entire apex demonstrates a moderate perfusion defect, extending somewhat into the proximal to mid anterior septum and this also persists to a slight degree on the prone images. The resting images show some improvement in the inferior wall and in the apex, more so at the periphery of the anteroseptal and anterior defect. IMPRESSION: 1. Abnormal myocardial perfusion study. 2. 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 In addition, there is a mildly reversible perfusion defect in the mid to distal inferior wall, concerning for possible mild inferior ischemia. However, these findings are somewhat nonspecific given the patient's left bundle branch block, which can produce artifacts, typically in the mid to distal anterior septum and apex. In addition, the patient likely has some breast attenuation artifact that could be playing some role in the defects. 3. Preserved left ventricular systolic function with a suggestion of mild hypokinesis at the apex, extending into the proximal anterior septum. This again could be consistent with left bundle branch block or previous nontransmural infarction. Left ventricular volumes are normal. 4. No reported angina with pharmacologic stress. She had a left bundle branch block without arrhythmia with infusion of regadenoson. Giulia Wren - BEATRICE/noel/MASON doc#: [id number]/job#: [id number] dd: 08/10/2021 15:25:00 dt: 08/10/2021 17:33:00 DICTATING /COPIES TO: Jhon Stinson MD; Paresh Radford, BETY MNE: LIOR;
== END ==
PROVIDERS: Family Provider Family Medicine; PCP Family Medicine; Referring Provider Family Medicine; Visit Provider Family Medicine
DX: I44.7 Left bundle-branch block, unspecified (principal); Z20.822 Contact with and (suspected) exposure to COVID-19
CPT/HCPCS: 78452; 87635; 93016; 93017; 93018; C9803; A9502; J2785

== ENCOUNTER → 2021-08-23 07:53 | Outpatient (CLI) | payer OTHER, SELFPAY ==
--- NOTE | 2021-08-23 07:56 | DI.ECHO.S_ITS ---
[facility] +---------+ : : [id number] [place] : : : : [id number] : : : : Phone: [phone]+ Echocardiogram Report + + :Name: KAROLYN MONTERO Study Date: 08/23/2021 Height: 64 in : :[employer] [facility] [employer] [facility] ReadingLocation: Weight: 230 lb : : Gender: Female BSA: 2.1 m2 : :: 1955 Age: 66 yrs BP: 147/85 mmHg: :Reason For Study: LBBB : :Ordering Physician: DOUGLAS, : :ISMAEL Performed By: Irina Jhaveri : :Referring: ISMAEL COLE : + + Interpretation Summary The ejection fraction is estimated to be 50-55%. There is a significant dyssynchronous contraction pattern, consistent with a conduction abnormality. Diastolic parameters suggest probable normal left ventricular diastolic function and normal filling pressures. The right ventricle is normal in size and function. There is mild mitral regurgitation. There is mild tricuspid regurgitation. PASP is approximately 28 to 33 mmHg. Procedure: A two-dimensional transthoracic echocardiogram with color flow and Doppler was performed. The study quality was technically adequate. There is no prior echocardiogram noted for this patient. The patient was in sinus rhythm with heart rates between 66-80 bpm during the exam. Left Ventricle: The left ventricle is normal in size and wall thickness. The ejection fraction is estimated to be 50-55%. There is a significant dyssynchronous contraction pattern, consistent with a conduction abnormality. Diastolic parameters suggest probable normal left ventricular diastolic function and normal filling pressures. Right Ventricle: The right ventricle is normal in size and function. Atria: The left atrial size is normal. Right atrial size is normal. There is no Doppler evidence for an interatrial shunt. Mitral Valve: The mitral valve is normal in structure and function. There is mild mitral annular calcification. There is mild mitral regurgitation. Aortic Valve: The aortic valve is trileaflet. The aortic valve opens well. There is no aortic valve stenosis. No aortic regurgitation is present. Tricuspid Valve: The tricuspid valve is normal in structure and function. There is mild tricuspid regurgitation. PASP is approximately 28 to 33 mmHg. Pulmonic Valve: The pulmonic valve is not well visualized. There is no pulmonic valvular regurgitation. Great Vessels: The aortic root is normal size. The dimensions of the ascending aorta are normal. The IVC is of normal diameter and collapses greater than 50% with a sniff. This suggests a low right atrial pressure of 3 mm Hg. Pericardium/ Pleura There is no pericardial effusion. There is no pleural effusion. MMode/2D Measurements & Calculations LVIDd: 4.6 cm LVOT diam: 2.0 cm LVIDs: 3.6 cm Ao root diam: 2.9 cm FS: 22.2 % asc Aorta Diam: 3.3 cm IVSd: 0.83 cm Ao Arch Diam (Prox Trans): 3.0 cm LVPWd: 0.81 cm LV green. diameter/BSA (cm/m^2): 2.2 LV sys. diameter/BSA (cm/m^2): 1.7 LA A2 area: 21.6 cm2 RA long axis: 4.8 cm LA A4 area: 19.2 cm2 RA area: 14.1 cm2 LA length (vol): 5.7 cm RA vol: 34.8 ml LA vol: 61.7 ml RA : 16.8 ml/m2 LA vol index: 29.7 ml/m2 IVC diam: 1.6 cm RVD1 (basal): 3.2 cm TAPSE: 2.3 cm Doppler Measurements & Calculations Ao V2 max: 126.4 cm/sec LVOT Max Pedro: 99.2 cm/sec Ao V2 mean: 84.4 cm/sec LV V1 max P.9 mmHg Ao max P.4 mmHg LV V1 VTI: 20.8 cm Ao mean P.2 mmHg ROGER(I,D): 2.4 cm2 Ao V2 VTI: 26.3 cm ROGER(V,D): 2.3 cm2 sev ratio: 0.79 ROGER indexed to BSA (cm^2/m^2): 1.1 MV E max pedro: 73.5 cm/sec TR max pedro: 249.9 cm/sec MV A max pedro: 102.1 cm/sec TR max P.0 mmHg MV E/A: 0.72 PA V2 max: 115.7 cm/sec Med Peak E' Pedro: 8.5 cm/sec PA V2 mean: 68.9 cm/sec E/E' med: 8.6 PA mean P.2 mmHg Lat Peak E' Pedro: 8.7 cm/sec PA pr(Accel): 49.9 mmHg E/E' lat: 8.5 E/e' average: 8.5 MV dec time: 0.19 sec SVLVOT): 62.3 ml Reading Physician:04:11 PM
== END ==
PROVIDERS: Family Provider Family Medicine; PCP Family Medicine; Referring Provider Family Medicine; Visit Provider Family Medicine
DX: I08.1 Rheumatic disorders of both mitral and tricuspid valves (principal); I44.7 Left bundle-branch block, unspecified
CPT/HCPCS: 93306

== ENCOUNTER → 2022-05-26 17:32 | Outpatient (CLI) | payer OTHER, SELFPAY ==
--- NOTE | 2022-05-26 17:35 | DI.MG.S_ITS ---
BILATERAL DIGITAL SCREENING MAMMOGRAM 3D/2D WITH CAD: 05/26/2022 CLINICAL: Routine screening. Personal history of right breast cancer. Family history of breast cancer. Comparison is made to exams dated: 05/24/2021 mammogram, 04/25/2020 mammogram, and 04/24/2019 mammogram - [facility]. Both breasts are heterogeneously dense, which may obscure small masses (category c / 51-75% glandular tissue). Current study was also evaluated with a Computer Aided Detection (CAD) system. There are benign post operative findings and biopsy clip in the right breast. No significant masses, calcifications, or other findings are seen in either breast. There has been no significant interval change. IMPRESSION: BENIGN There is no mammographic evidence of malignancy. A 1 year screening mammogram is recommended. This exam was interpreted at Station ID: [id number]. NOTE: For mammograms, a report in lay terms will be sent to the patient. Approximately 15% of breast malignancies will not be visualized mammographically. In the management of a palpable breast mass, a negative mammogram must not discourage biopsy of a clinically suspicious lesion. Electronically Signed By: Romeo musa/angella:05/27/2022 12:14:24 letter sent: Normal Exam ACR BI-RADS Category 2: Benign Finding(s) 3342F
== END ==
PROVIDERS: Family Provider Family Medicine; PCP Family Medicine; Referring Provider Family Medicine; Visit Provider Family Medicine
DX: Z12.31 Encounter for screening mammogram for malignant neoplasm of breast (principal); Z85.3 Personal history of malignant neoplasm of breast; Z80.3 Family history of malignant neoplasm of breast
CPT/HCPCS: 77063; 77067

== ENCOUNTER → 2022-06-02 11:15 | Outpatient (CLI) | payer OTHER, SELFPAY ==
[2022-06-02 14:24] LABS: Cancer Antigen 125 15.5 U/mL (0-35)
== END ==
PROVIDERS: Family Provider Family Medicine; PCP Family Medicine; Referring Provider Obstetrics & Gynecology; Visit Provider Obstetrics & Gynecology
DX: R19.09 Other intra-abdominal and pelvic swelling, mass and lump (principal)
CPT/HCPCS: 36415; 86304

== ENCOUNTER → 2022-08-12 13:08 | Outpatient (CLI) | payer OTHER, SELFPAY ==
[2022-08-12 13:46] LABS: Add Manual Diff / Slide Review NO; Basophils Absolute Auto 0 /uL (0-100); Basophils Percent Auto 1.3 % (0-2); Eosinophils Absolute Auto 100 /uL (0-450); Eosinophils Percent Auto 2.8 % (2-4); Hematocrit 40.9 % (36-46); Hemoglobin 13.4 g/dL (12.0-16.0); Lymphocytes Absolute Auto 800 /uL (1100-4500); Lymphocytes Percent Auto 19.3 % (25-40); Mean Corpuscular HGB Conc 32.7 % (30-36); Mean Corpuscular Hemoglobin 29.8 PG (26-34); Mean Corpuscular Volume 91.2 fL (80-100); Monocytes Absolute Auto 300 /uL (0-900); Monocytes Percent Auto 6.9 % (3-14); Neutrophils Absolute Auto 2700 /uL (1500-7000); Neutrophils Percent Auto 69.7 % (50-75); Platelet Count 167 X10^3/uL (150-400); Red Blood Cell Count 4.48 X10^6/uL (4.0-5.2); White Blood Cell Count 3.9 X10^3/uL (4.5-11.0)
[2022-08-12 13:55] LABS: Alanine Aminotransferase 22 IU/L (<35); Alkaline Phosphatase 84 U/L (38-126); Aspartate Aminotransferase 23 IU/L (14-36); BUN Creatinine Ratio 15.9 (6-22); Bilirubin Total 0.6 mg/dL (0.2-1.3); Blood Urea Nitrogen 13 mg/dL (7-17); Calcium 8.8 mg/dL (8.4-10.2); Carbon Dioxide 29 mmol/L (22-32); Chloride 103 mmol/L (98-107); Cholesterol 170 mg/dL (140-199); Estimated Glomerular Filt Rate > 60 mL/min (>60); Glucose 101 mg/dL (80-110); HDL Cholesterol 47 mg/dL (40-60); HEMOLYSIS < 15 (0-50); LDL Cholesterol Calculated 109 mg/dL (<100); Potassium 4.1 mmol/L (3.4-5.1); Sodium 140 mmol/L (137-145); Total Protein 7.4 g/dL (6.3-8.2); Triglycerides 69 mg/dL (35-150)
[2022-08-12 13:59] LABS: Hemoglobin A1C% w Est Avg Glu 5.7 % (4.0-6.0)
[2022-08-12 15:11] LABS: TSH w/ Reflex to FT4 1.37 uIU/mL (0.47-4.68)
[2022-08-12 15:38] LABS: Albumin 4.1 g/dL (3.5-5.0); Albumin Globulin Ratio 1.2 (1.0-2.8); Globulin 3.3 g/dL (1.7-4.1)
== END ==
PROVIDERS: Family Provider Family Medicine; PCP Family Medicine; Referring Provider Internal Medicine Cardiovascular Disease; Visit Provider Internal Medicine Cardiovascular Disease
DX: I25.10 Atherosclerotic heart disease of native coronary artery without angina pectoris (principal); Z13.1 Encounter for screening for diabetes mellitus; E78.5 Hyperlipidemia, unspecified; Z13.29 Encounter for screening for other suspected endocrine disorder
CPT/HCPCS: 36415; 80053; 80061; 83036; 84443; 85025

== ENCOUNTER → 2022-08-25 10:28 | Outpatient (CLI) | payer OTHER, SELFPAY ==
--- NOTE | 2022-08-25 10:29 | DI.RAD.S_ITS ---
PROCEDURE: XR CHEST 2V INDICATIONS: chronic cough TECHNIQUE: 2 views of the chest were acquired. COMPARISON: [facility], , CHEST 2 VIEW, 08/15/2015, 12:00. FINDINGS: Surgical changes and devices: None. Lungs and pleura: Lungs are clear. No pleural effusions or pneumothorax. Mediastinum: Mediastinal contours are normal. Heart size is normal. Bones and chest wall: No suspicious bony abnormalities. Soft tissues appear unremarkable. IMPRESSION: No acute cardiopulmonary abnormality. Approved by: Romeo Marinelli M.D. on 08/25/2022 at 12:44
== END ==
PROVIDERS: Family Provider Family Medicine; PCP Family Medicine; Referring Provider Family Medicine; Visit Provider Family Medicine
DX: R05.3 Chronic cough (principal)
CPT/HCPCS: 71046

== ENCOUNTER 2023-04-20 12:30 | Outpatient (RCR) | payer OTHER, SELFPAY ==
--- NOTE | 2023-01-27 19:17 | PT.OIE ---
Current Diagnoses Stiffness of unspecified hip, not elsewhere classified (01/27/23) Lordosis, unspecified, lumbosacral region (01/27/23) Muscle weakness (generalized) (01/27/23) Mixed incontinence (01/27/23) Incomplete uterovaginal prolapse (01/27/23) Past Medical History (Last Updated 08/25/22 @ 09:32 by Paresh Radford MD) Abnormal myocardial perfusion study Acne (~1985) BRCA negative (~2004) Breast cancer (~2004) CAD (coronary artery disease) Chicken pox Knee problem (~2003) Measles Past Surgical History (Last Reviewed 07/05/21 @ 12:24 by Janine Alva RN) Anesthesia History of breast surgery (~2004) Status post wrist surgery (~2005) Visit Care Team Role Provider Type Paresh Radford MD Family Provider Physician Primary Care Provider Specialty: Family Practice Address: [address] [place] [address] Email: [email or web address] Jazmine Aguilar MD Attending Provider Physician Referring Provider Specialty: Gynecology [employer] Address: [address] [place] [address] Email: [email or web address] Physical Therapy Initial Evaluation PT-OP-A Visit Information Start: 01/17/23 19:57 Freq: Status: Active Protocol: Document 01/27/23 13:17 LRN (Rec: 01/27/23 14:00 LRN [id number]) Out-Patient Physical Therapy Visit Information Visit Information Visit Type Initial Evaluation Visit Start Time 13:17 Visit Stop Time 13:55 Total Visit Minutes 38 Visit Number 1 Evaluation Information Evaluation Date 01/27/23 Precautions Precautions 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 History of L bundle branch block. PT-OP-B Current Condition Start: 01/17/23 19:57 Freq: Status: Active Protocol: Document 01/27/23 13:17 LRN (Rec: 01/27/23 14:00 LRN [id number]) Current Condition History of Current Condition Onset Date 1 yr ago Current Complaints Must manually redirect feces externally to redirect feces to anus (80%). History of Current Condition Pt for mixed incontinence, and incomplete uterogenital prolapse. Pt reports referred to therapy for PF strengthening because of rectocele and weak bladder. Rectocele present for a long time (5 yrs), BUT learned what it was a year ago, because poop and pooper doesn't line up 80% of time. Pt reports bladder is getting weaker and she leaks as she heads to the bathroom door first in the morning and in evening after drinking. 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 Future Testing and Treatments Planned Possible anal surgery, will decide in February, with possible surgery in May. Treatment Goals Patient/Caregiver Goals Pt goal is -to strengthen the PF to decrease need of external manual assist for having a bowel movement, and to learn how to manage her PF after surgery. -PF strengthening to not leak when going to bathroom ( morning and at night after a drink). Personal Factors Other Personal Factors That May Effect History of breast CA, does Therapy/Recovery physical work needs at home due to spouse inability to help because of his bad back. PT-OP-C Subjective Start: 01/17/23 19:57 Freq: Status: Active Protocol: Document 01/27/23 13:17 LRN (Rec: 01/27/23 14:00 LRN [id number]) Patient Questionnaires Pelvic Pain and Urgency/Frequency Patient Symptom Scale Pelvic Pain Score 4 PT-OP-I Pelvic Floor Start: 01/17/23 19:57 Freq: Status: Active Protocol: Document 01/27/23 13:17 LRN (Rec: 01/27/23 14:00 LRN [id number]) Pelvic Floor Assessment Urine Urinary Symptoms Urge Sensation Other Urinary Symptoms triggers: running water Leakage Size Small Leakage Cause Sneeze Leaks Per Day 1-2 Voiding Frequency 4-6x/day Nocturia 1-2x Pads Used In 24 Hours none Bowel Bowel Surgery No Bowel Symptoms Constipation Other Bowel Symptoms Sometimes constipation Bowel Movement Frequency 1/day Pelvic Clock Pelvic Clock 6-9 Atrophy Pelvic Clock 9-12 Atrophy Inter-Rectal Assessment Digital assessment: Weakness felt on R side of anal sphincter with contraction. Visible Bulge on R side of anal opening. Prolapse Urethrocele Grade 2 Rectocele Grade 2 Prolapse Comments Palpation of uterus with insertion ~6.5 cm per digital exam. Perineal Descent Resting Absent Bearing Absent Contraction Ability Voluntary Contraction Weak Manual Muscle Testing Left 3 Manual Muscle Testing Right 0 Manual Muscle Testing Anterior 2 Manual Muscle Testing Posterior 0 Muscle Endurance (Seconds) 3 Number of Quick Contractions In 10 3 Seconds Comments Pelvic Floor Comments Redness of external PF. Pt requires Gluteal and abdominal assist to perform a PF contraction. Weakness of 6-12 of the PF clock per vaginal digital assessment. EMG biofeedback assessment to be done at the next visit. PT-OP-J Posture/Palpation/Skin Start: 01/17/23 19:57 Freq: Status: Active Protocol: Document 01/27/23 13:17 LRN (Rec: 01/27/23 14:00 LRN [id number]) Posture Evaluation Position Standing L-Spine Posture Increased Lordosis Pelvis Posture Anteriorly Tilted Weight Distribution Balanced PT-OP-K Range of Motion Start: 01/17/23 19:57 Freq: Status: Active Protocol: Document 01/27/23 13:17 LRN (Rec: 01/27/23 14:00 LRN [id number]) Lumbar Spine Range of Motion Lumbar Spine Active Degrees Testing Position Standing Flexion 78 Extension 10 Rotation Left 10 Rotation Right 15 Lateral Flexion Left 15 Lateral Flexion Right 10 Comments Trunk AROM: Flexion is 78 deg ?s with 55 deg?s hip flexion, Trunk extension is 10 deg?s with 5 deg?s hip extension. Hip Goniometric Range of Motion Hip Right Passive Testing Position Supine Internal Rotation 30 External Rotation 65 Left Passive Testing Position Supine Internal Rotation 30 External Rotation 65 PT-OP-M Strength Start: 01/17/23 19:57 Freq: Status: Active Protocol: Document 01/27/23 13:17 LRN (Rec: 01/27/23 14:00 LRN [id number]) Trunk Strength Trunk Manual Muscle Testing Core Stabilization Loss of core rotational stability with hip flex/ext MMT Hip Strength Hip Manual Muscle Testing Right Extension (S1) 4+ Good+ Adduction 2 Poor Comments Strength is 5/5 except as indicated above. Left Flexion (L2) 4+ Good+ Adduction 2 Poor External Rotation 4 Good Comments Strength is 5/5 except as indicated above. PT-OP-Q Treatments Start: 01/17/23 19:57 Freq: Status: Active Protocol: Document 01/27/23 13:17 LRN (Rec: 01/27/23 14:00 LRN [id number]) Self-Care/Home Management Treatment Education Other Education Discussed results of evaluation, goals, and plan of care (POC). Pt agreeable to goals and POC. Activities Self-Care/Home Management Activities Issued & instructed HEP: Kegel ex's and discussed exercise of Quick Flicks, Long Holds and Aggravators. PT-OP-T Assessment and Plan Start: 01/17/23 19:57 Freq: Status: Active Protocol: Document 01/27/23 13:17 LRN (Rec: 01/27/23 14:00 LRN [id number]) Physical Therapy Assessment Rehab Potential Rehabilitation Potential Good Evaluation Complexity Number of Personal Factors/Comorbidities 1-2 Number of Body Systems Impaired 4 or More Clinical Presentation at Evaluation Evolving Impairments Impairments Activity Tolerance,Functional Mobility,Posture,ROM,Strength, Transfers Other Impairments Lacks coordination of core pressure management with transfers and proper breathwork. Goals Four Impairment Substitution of abdominal and gluteal ms to perform a PF contraction. Short Term Goal (STG) Pt will be educated in proper posturing to promote strengthening of the anterior or posterior pelvic floor muscles. STG Duration 03/13/23 Intermediate Goal (LTG) Pt will be able to perform a PF contraction in the absence of abdominal/gluteal muscles. LTG Duration 04/27/23 Three Impairment Urinary incontinence walking to bathroom with a strong urge or sneeze. Short Term Goal (STG) Pt will be educated in urge deference technique and will be able to maintain urinary continence when going to bathroom (morning and at night after a drink). STG Duration 03/13/23 Intermediate Goal (LTG) Improve PF strength with pt will be able to maintain urinary continence in the presence of a sneeze, cough or with laugh. Two Impairment Pt requires external manual assist for a bowel movement. Impairment Assist needed at transverse perineum or lateral to anal opening for BM. Short Term Goal (STG) Pt will be educated in how to manage her bowel movements and internal core pressures to minimize need for manual assist for bowel movements and worsening of her rectocele. STG Duration 03/13/23 Intermediate Goal (LTG) Strengthen the PF and modify diet to prevent need of external manual assist for having a bowel movement. LTG Duration 04/27/23 One Impairment Pt lacks an independent self care HEP. Short Term Goal (STG) Pt educated in proper transfers to lessen core abdominal pressure. STG Duration 03/13/23 Straightening Press Operator Goal (LTG) Pt will be independent in a self care HEP for PF strengthening, hip mobility and core/hip strengthening exercises. LTG Duration 04/27/23 Assessment Summary Assessment Pt is a 67 yo female who presents with rectocele and incomplete uterogenital prolapse, and mixed urinary incontinence. She demonstrates redness of her external PF tissues and mild dryness, otherwise her PF tissues appear healthy but weak. Pt requires Gluteal and abdominal assist to perform a PF contraction. She has mechanical dysfunctions of increased lordosis, decreased hip mobility (IR>ER), and weakness of the core (rotators ) and hips (tianna hip AD, R hip ext, L hip flex/ER). Pt education is needed for coordination of breathwork for better core pressure management as the pt appears to be doing most of the heavy lifting and housework due to her report of her spouse suffering from back pain. Review of her fluid and food management and education in bowel care for best method of elimination. The pt will benefit from skilled physical therapy to work towards achieving the above stated goals. Physical Therapy Plan Frequency and Duration Frequency of Treatment 1x/Week Plan of Care Start Date 01/27/23 Plan of Care End Date 04/27/23 Therapeutic Interventions Therapeutic Interventions Home Exercise Program,Joint Mobilizations,Manual Therapy, Neuromuscular Re-education, Self-Care/Home Management,Soft Tissue Mobilization, Therapeutic Activities, Therapeutic Exercises Modalities Biofeedback,Electric Stimulation Next Visit Focus/Plan Next Note Type Treatment Note Next Visit Plan Review and discuss results of bladder diary as related to fluid and food management, Pt education in urge deference technique & proper Kegel without use of substitute muscles, Pt education in vulvar/genital care, and best methods for BM elimination, Pt education in proper breathing with transfer, and body mechanics for proper core pressure management. PF/core (rotators)/hip strengthening (tianna hip AD, R hip ext, L hip flex/ER), ROM: Improve hip mobility (IR >ER), STM: improve abdominal soft tissue (bladder) mobility, Biofeedback for PF awareness training and strengthening ( hold EStim due to L BBB history). POC: Therapeutic Exercises, Neuromuscular Reeducation, Kinetic Activities. Assess deep breathing and start LE roll in/out ex when appropriate. Education in vulvar/genital care and body mechanics.
--- NOTE | 2023-01-27 19:17 | PT.OPPOC ---
Physical, Occupational & Speech Therapy At [facility] Current Diagnoses Stiffness of unspecified hip, not elsewhere classified (01/27/23) Lordosis, unspecified, lumbosacral region (01/27/23) Muscle weakness (generalized) (01/27/23) Mixed incontinence (01/27/23) Incomplete uterovaginal prolapse (01/27/23) Visit Care Team Role Provider Type Paresh Radford MD Family Provider Physician Primary Care Provider Specialty: Family Practice Address: [address] [place] [address] Email: [email or web address] Jazmine Aguilar MD Attending Provider Physician Referring Provider Specialty: Gynecology [employer] Address: [address] [place] [address] Email: [email or web address] Plan Of Care PT-OP-T Assessment and Plan Start: 01/17/23 19:57 Freq: Status: Active Protocol: Document 01/27/23 13:17 LRN (Rec: 01/27/23 14:00 LRN [id number]) Physical Therapy Assessment Rehab Potential Rehabilitation Potential Good Evaluation Complexity Number of Personal Factors/Comorbidities 1-2 Number of Body Systems Impaired 4 or More Clinical Presentation at Evaluation Evolving Impairments Impairments Activity Tolerance,Functional Mobility,Posture,ROM,Strength, Transfers Other Impairments Lacks coordination of core pressure management with transfers and proper breathwork. Goals Four Impairment Substitution of abdominal and gluteal ms to perform a PF contraction. Short Term Goal (STG) Pt will be educated in proper posturing to promote strengthening of the anterior or posterior pelvic floor muscles. STG Duration 03/13/23 Fpc Goal (LTG) Pt will be able to perform a PF contraction in the absence of abdominal/gluteal muscles. LTG Duration 04/27/23 Three Impairment Urinary incontinence walking to bathroom with a strong urge or sneeze. Short Term Goal (STG) Pt will be educated in urge deference technique and will be able to maintain urinary continence when going to bathroom (morning and at night after a drink). STG Duration 03/13/23 Order Editor Goal (LTG) Improve PF strength with pt will be able to maintain urinary continence in the presence of a sneeze, cough or with laugh. Two Impairment Pt requires external manual assist for a bowel movement. Impairment Assist needed at transverse perineum or lateral to anal opening for BM. Short Term Goal (STG) Pt will be educated in how to manage her bowel movements and internal core pressures to minimize need for manual assist for bowel movements and worsening of her rectocele. STG Duration 03/13/23 Order Editor Goal (LTG) Strengthen the PF and modify diet to prevent need of external manual assist for having a bowel movement. LTG Duration 04/27/23 One Impairment Pt lacks an independent self care HEP. Short Term Goal (STG) Pt educated in proper transfers to lessen core abdominal pressure. STG Duration 03/13/23 Order Editor Goal (LTG) Pt will be independent in a self care HEP for PF strengthening, hip mobility and core/hip strengthening exercises. LTG Duration 04/27/23 Assessment Summary Assessment Pt is a 67 yo female who presents with rectocele and incomplete uterogenital prolapse, and mixed urinary incontinence. She demonstrates redness of her external PF tissues and mild dryness, otherwise her PF tissues appear healthy but weak. Pt requires Gluteal and abdominal assist to perform a PF contraction. She has mechanical dysfunctions of increased lordosis, decreased hip mobility (IR>ER), and weakness of the core (rotators ) and hips (tianna hip AD, R hip ext, L hip flex/ER). Pt education is needed for coordination of breathwork for better core pressure management as the pt appears to be doing most of the heavy lifting and housework due to her report of her spouse suffering from back pain. Review of her fluid and food management and education in bowel care for best method of elimination. The pt will benefit from skilled physical therapy to work towards achieving the above stated goals. Physical Therapy Plan Frequency and Duration Frequency of Treatment 1x/Week Plan of Care Start Date 01/27/23 Plan of Care End Date 04/27/23 Therapeutic Interventions Therapeutic Interventions Home Exercise Program,Joint Mobilizations,Manual Therapy, Neuromuscular Re-education, Self-Care/Home Management,Soft Tissue Mobilization, Therapeutic Activities, Therapeutic Exercises Modalities Biofeedback,Electric Stimulation Next Visit Focus/Plan Next Note Type Treatment Note Next Visit Plan Review and discuss results of bladder diary as related to fluid and food management, Pt education in urge deference technique & proper Kegel without use of substitute muscles, Pt education in vulvar/genital care, and best methods for BM elimination, Pt education in proper breathing with transfer, and body mechanics for proper core pressure management. PF/core (rotators)/hip strengthening (tianna hip AD, R hip ext, L hip flex/ER), ROM: Improve hip mobility (IR >ER), STM: improve abdominal soft tissue (bladder) mobility, Biofeedback for PF awareness training and strengthening ( hold EStim due to L BBB history). POC: Therapeutic Exercises, Neuromuscular Reeducation, Kinetic Activities. Assess deep breathing and start LE roll in/out ex when appropriate. Education in vulvar/genital care and body mechanics. Plan of Care Dates Plan of Care Start Date 01/27/23 Plan of Care End Date 04/27/23 Electronically Signed by: Vee Juarez, PT 01/27/23 0273 If you are in agreement with this Plan of Care, please return a signed and dated copy. I have reviewed this Plan of Care and certify that the skilled therapy services above are required to meet the patient?s needs. Physician Signature Date Printed Name and Credentials Clinical Instructor Signature Printed Name and Credentials
--- NOTE | 2023-02-03 16:31 | PT.OTN ---
Current Diagnoses Stiffness of unspecified hip, not elsewhere classified (02/03/23) Lordosis, unspecified, lumbosacral region (02/03/23) Muscle weakness (generalized) (02/03/23) Mixed incontinence (02/03/23) Incomplete uterovaginal prolapse (02/03/23) Physical Therapy Treatment Note PT-OP-A Visit Information Start: 01/17/23 19:57 Freq: Status: Active Protocol: Document 02/03/23 10:26 LRN (Rec: 02/03/23 11:17 LRN [id number]) Out-Patient Physical Therapy Visit Information Visit Information Visit Type Treatment Note Visit Start Time 10:30 Visit Stop Time 11:14 Total Visit Minutes 44 Visit Number 2 Evaluation Information Evaluation Date 01/27/23 Precautions Precautions 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 History of L bundle branch block. PT-OP-B Current Condition Start: 01/17/23 19:57 Freq: Status: Active Protocol: Document 01/27/23 13:17 LRN (Rec: 01/27/23 14:00 LRN [id number]) Current Condition History of Current Condition Onset Date 1 yr ago Current Complaints Must manually redirect feces externally to redirect feces to anus (80%). History of Current Condition Pt for mixed incontinence, and incomplete uterogenital prolapse. Pt reports referred to therapy for PF strengthening because of rectocele and weak bladder. Rectocele present for a long time (5 yrs), BUT learned what it was a year ago, because poop and pooper doesn't line up 80% of time. Pt reports bladder is getting weaker and she leaks as she heads to the bathroom door first in the morning and in evening after drinking. 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 Future Testing and Treatments Planned Possible anal surgery, will decide in February, with possible surgery in May. Treatment Goals Patient/Caregiver Goals Pt goal is -to strengthen the PF to decrease need of external manual assist for having a bowel movement, and to learn how to manage her PF after surgery. -PF strengthening to not leak when going to bathroom ( morning and at night after a drink). Personal Factors Other Personal Factors That May Effect History of breast CA, does Therapy/Recovery physical work needs at home due to spouse inability to help because of his bad back. PT-OP-C Subjective Start: 01/17/23 19:57 Freq: Status: Active Protocol: Document 02/03/23 10:26 LRN (Rec: 02/03/23 11:17 LRN [id number]) OP-PT Subjective Patient Comments Patient Comments States her normal void is 20- 30 secs. Lifted last bag of manure yesterday. Has no plans for further heavy lifting. PT-OP-I Pelvic Floor Start: 01/17/23 19:57 Freq: Status: Active Protocol: Document 01/27/23 13:17 LRN (Rec: 01/27/23 14:00 LRN [id number]) Pelvic Floor Assessment Urine Urinary Symptoms Urge Sensation Other Urinary Symptoms triggers: running water Leakage Size Small Leakage Cause Sneeze Leaks Per Day 1-2 Voiding Frequency 4-6x/day Nocturia 1-2x Pads Used In 24 Hours none Bowel Bowel Surgery No Bowel Symptoms Constipation Other Bowel Symptoms Sometimes constipation Bowel Movement Frequency 1/day Pelvic Clock Pelvic Clock 6-9 Atrophy Pelvic Clock 9-12 Atrophy Inter-Rectal Assessment Digital assessment: Weakness felt on R side of anal sphincter with contraction. Visible Bulge on R side of anal opening. Prolapse Urethrocele Grade 2 Rectocele Grade 2 Prolapse Comments Palpation of uterus with insertion ~6.5 cm per digital exam. Perineal Descent Resting Absent Bearing Absent Contraction Ability Voluntary Contraction Weak Manual Muscle Testing Left 3 Manual Muscle Testing Right 0 Manual Muscle Testing Anterior 2 Manual Muscle Testing Posterior 0 Muscle Endurance (Seconds) 3 Number of Quick Contractions In 10 3 Seconds Comments Pelvic Floor Comments Redness of external PF. Pt requires Gluteal and abdominal assist to perform a PF contraction. Weakness of 6-12 of the PF clock per vaginal digital assessment. EMG biofeedback assessment to be done at the next visit. PT-OP-J Posture/Palpation/Skin Start: 01/17/23 19:57 Freq: Status: Active Protocol: Document 01/27/23 13:17 LRN (Rec: 01/27/23 14:00 LRN [id number]) Posture Evaluation Position Standing L-Spine Posture Increased Lordosis Pelvis Posture Anteriorly Tilted Weight Distribution Balanced PT-OP-K Range of Motion Start: 01/17/23 19:57 Freq: Status: Active Protocol: Document 01/27/23 13:17 LRN (Rec: 01/27/23 14:00 LRN [id number]) Lumbar Spine Range of Motion Lumbar Spine Active Degrees Testing Position Standing Flexion 78 Extension 10 Rotation Left 10 Rotation Right 15 Lateral Flexion Left 15 Lateral Flexion Right 10 Comments Trunk AROM: Flexion is 78 deg ?s with 55 deg?s hip flexion, Trunk extension is 10 deg?s with 5 deg?s hip extension. Hip Goniometric Range of Motion Hip Right Passive Testing Position Supine Internal Rotation 30 External Rotation 65 Left Passive Testing Position Supine Internal Rotation 30 External Rotation 65 PT-OP-M Strength Start: 01/17/23 19:57 Freq: Status: Active Protocol: Document 01/27/23 13:17 LRN (Rec: 01/27/23 14:00 LRN [id number]) Trunk Strength Trunk Manual Muscle Testing Core Stabilization Loss of core rotational stability with hip flex/ext MMT Hip Strength Hip Manual Muscle Testing Right Extension (S1) 4+ Good+ Adduction 2 Poor Comments Strength is 5/5 except as indicated above. Left Flexion (L2) 4+ Good+ Adduction 2 Poor External Rotation 4 Good Comments Strength is 5/5 except as indicated above. PT-OP-Q Treatments Start: 01/17/23 19:57 Freq: Status: Active Protocol: Document 02/03/23 10:26 LRN (Rec: 02/03/23 11:17 LRN [id number]) Therapeutic Exercises Standing Exercises PF awareness Standing Exercise Name PF awareness training leaning over sink and in standing PF tightening Standing Exercise Name PF/with Pelvic Tilts - anterior/posterior Comments Much v and phy cuing needed. Pelvic Tilts Standing Exercise Name Leaning over sink for anter/ help desk analyst tilt Comments Much phy cuing needed to get motion. Self-Care/Home Management Treatment Education Patient Education Body Mechanics,Posture Other Education Reviewed bladder diary what pt had filled out (times of day voiding and notation of s/m/lg leakage. Discussed proper charting on bladder diary and re-issued handouts for bladder diary, multi-day and single day pages. Educated and discussed Proper posture: Queen to Safe Movement, Proper sitting and standing posture, Body mechanics basics and body mechanics for ADLs. Activities Self-Care/Home Management Activities Issued handouts for proper posturing sit/stand, queen to safe movement positioning, body mechanics basics and for ADLs. PT-OP-T Assessment and Plan Start: 01/17/23 19:57 Freq: Status: Active Protocol: Document 02/03/23 10:26 LRN (Rec: 02/03/23 11:17 LRN [id number]) Physical Therapy Assessment Goals Four Impairment Substitution of abdominal and gluteal ms to perform a PF contraction. Short Term Goal (STG) Pt will be educated in proper posturing to promote strengthening of the anterior or posterior pelvic floor muscles. STG Duration 03/13/23 (02/03/23: MET GOAL ) Research Nutritionist Goal (LTG) Pt will be able to perform a PF contraction in the absence of abdominal/gluteal muscles. LTG Duration 04/27/23 Three Impairment Urinary incontinence walking to bathroom with a strong urge or sneeze. Short Term Goal (STG) Pt will be educated in urge deference technique and will be able to maintain urinary continence when going to bathroom (morning and at night after a drink). STG Duration 03/13/23 Jail Goal (LTG) Improve PF strength with pt will be able to maintain urinary continence in the presence of a sneeze, cough or with laugh. Two Impairment Pt requires external manual assist for a bowel movement. Impairment Assist needed at transverse perineum or lateral to anal opening for BM. Short Term Goal (STG) Pt will be educated in how to manage her bowel movements and internal core pressures to minimize need for manual assist for bowel movements and worsening of her rectocele. STG Duration 03/13/23 Jail Goal (LTG) Strengthen the PF and modify diet to prevent need of external manual assist for having a bowel movement. LTG Duration 04/27/23 One Impairment Pt lacks an independent self care HEP. Short Term Goal (STG) Pt educated in proper transfers to lessen core abdominal pressure. STG Duration 03/13/23 Research Nutritionist Goal (LTG) Pt will be independent in a self care HEP for PF strengthening, hip mobility and core/hip strengthening exercises. LTG Duration 04/27/23 Assessment Summary Assessment Pt had poor compliance to bladder diary assignment due to confusion. She appears to have a much better understanding of her home program with extra time given to discussion and education. Pt posterior PF is weaker than anterior as pt is able to feel anterior PF contraction and not posterior, even sitting. Physical Therapy Plan Frequency and Duration Frequency of Treatment 1x/Week Plan of Care Start Date 01/27/23 Plan of Care End Date 04/27/23 Next Visit Focus/Plan Next Note Type Treatment Note Next Visit Plan Review and discuss results of bladder diary as related to fluid and food management, Pt education in urge deference technique & proper Kegel without use of substitute muscles, Pt education in vulvar/genital care, and best methods for BM elimination, Pt education in proper breathing with transfer, and body mechanics for proper core pressure management. PF (R side & posterior> anterior)/core (rotators)/hip strengthening (tianna hip AD, R hip ext, L hip flex/ER), ROM: Improve hip mobility (IR >ER), STM: improve abdominal soft tissue (bladder) mobility, Biofeedback for PF awareness training and strengthening ( hold EStim due to L BBB history). POC: Therapeutic Exercises, Neuromuscular Reeducation, Kinetic Activities. Assess deep breathing and start LE roll in/out ex when appropriate. Education in vulvar/genital care and body mechanics.
--- NOTE | 2023-02-13 17:32 | PT.OTN ---
Current Diagnoses Stiffness of unspecified hip, not elsewhere classified (02/13/23) Lordosis, unspecified, lumbosacral region (02/13/23) Muscle weakness (generalized) (02/13/23) Mixed incontinence (02/13/23) Incomplete uterovaginal prolapse (02/13/23) Physical Therapy Treatment Note PT-OP-A Visit Information Start: 01/17/23 19:57 Freq: Status: Active Protocol: Document 02/13/23 11:20 LRN (Rec: 02/13/23 12:15 LRN [id number]) Out-Patient Physical Therapy Visit Information Visit Information Visit Type Treatment Note Visit Start Time 11:20 Visit Stop Time 12:06 Total Visit Minutes 48 Visit Number 3 Evaluation Information Evaluation Date 01/27/23 Precautions Precautions 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 History of L bundle branch block. PT-OP-B Current Condition Start: 01/17/23 19:57 Freq: Status: Active Protocol: Document 01/27/23 13:17 LRN (Rec: 01/27/23 14:00 LRN [id number]) Current Condition History of Current Condition Onset Date 1 yr ago Current Complaints Must manually redirect feces externally to redirect feces to anus (80%). History of Current Condition Pt for mixed incontinence, and incomplete uterogenital prolapse. Pt reports referred to therapy for PF strengthening because of rectocele and weak bladder. Rectocele present for a long time (5 yrs), BUT learned what it was a year ago, because poop and pooper doesn't line up 80% of time. Pt reports bladder is getting weaker and she leaks as she heads to the bathroom door first in the morning and in evening after drinking. 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 Future Testing and Treatments Planned Possible anal surgery, will decide in February, with possible surgery in May. Treatment Goals Patient/Caregiver Goals Pt goal is -to strengthen the PF to decrease need of external manual assist for having a bowel movement, and to learn how to manage her PF after surgery. -PF strengthening to not leak when going to bathroom ( morning and at night after a drink). Personal Factors Other Personal Factors That May Effect History of breast CA, does Therapy/Recovery physical work needs at home due to spouse inability to help because of his bad back. PT-OP-C Subjective Start: 01/17/23 19:57 Freq: Status: Active Protocol: Document 02/13/23 11:20 LRN (Rec: 02/13/23 12:15 LRN [id number]) OP-PT Subjective Patient Comments Patient Comments States laying down feels anterior PF better, sitting feels posterior PF more. States she has not had leakage in over a week, is able to hold her urine. PT-OP-I Pelvic Floor Start: 01/17/23 19:57 Freq: Status: Active Protocol: Document 01/27/23 13:17 LRN (Rec: 01/27/23 14:00 LRN [id number]) Pelvic Floor Assessment Urine Urinary Symptoms Urge Sensation Other Urinary Symptoms triggers: running water Leakage Size Small Leakage Cause Sneeze Leaks Per Day 1-2 Voiding Frequency 4-6x/day Nocturia 1-2x Pads Used In 24 Hours none Bowel Bowel Surgery No Bowel Symptoms Constipation Other Bowel Symptoms Sometimes constipation Bowel Movement Frequency 1/day Pelvic Clock Pelvic Clock 6-9 Atrophy Pelvic Clock 9-12 Atrophy Inter-Rectal Assessment Digital assessment: Weakness felt on R side of anal sphincter with contraction. Visible Bulge on R side of anal opening. Prolapse Urethrocele Grade 2 Rectocele Grade 2 Prolapse Comments Palpation of uterus with insertion ~6.5 cm per digital exam. Perineal Descent Resting Absent Bearing Absent Contraction Ability Voluntary Contraction Weak Manual Muscle Testing Left 3 Manual Muscle Testing Right 0 Manual Muscle Testing Anterior 2 Manual Muscle Testing Posterior 0 Muscle Endurance (Seconds) 3 Number of Quick Contractions In 10 3 Seconds Comments Pelvic Floor Comments Redness of external PF. Pt requires Gluteal and abdominal assist to perform a PF contraction. Weakness of 6-12 of the PF clock per vaginal digital assessment. EMG biofeedback assessment to be done at the next visit. PT-OP-J Posture/Palpation/Skin Start: 01/17/23 19:57 Freq: Status: Active Protocol: Document 01/27/23 13:17 LRN (Rec: 01/27/23 14:00 LRN [id number]) Posture Evaluation Position Standing L-Spine Posture Increased Lordosis Pelvis Posture Anteriorly Tilted Weight Distribution Balanced PT-OP-K Range of Motion Start: 01/17/23 19:57 Freq: Status: Active Protocol: Document 01/27/23 13:17 LRN (Rec: 01/27/23 14:00 LRN [id number]) Lumbar Spine Range of Motion Lumbar Spine Active Degrees Testing Position Standing Flexion 78 Extension 10 Rotation Left 10 Rotation Right 15 Lateral Flexion Left 15 Lateral Flexion Right 10 Comments Trunk AROM: Flexion is 78 deg ?s with 55 deg?s hip flexion, Trunk extension is 10 deg?s with 5 deg?s hip extension. Hip Goniometric Range of Motion Hip Right Passive Testing Position Supine Internal Rotation 30 External Rotation 65 Left Passive Testing Position Supine Internal Rotation 30 External Rotation 65 PT-OP-M Strength Start: 01/17/23 19:57 Freq: Status: Active Protocol: Document 01/27/23 13:17 LRN (Rec: 01/27/23 14:00 LRN [id number]) Trunk Strength Trunk Manual Muscle Testing Core Stabilization Loss of core rotational stability with hip flex/ext MMT Hip Strength Hip Manual Muscle Testing Right Extension (S1) 4+ Good+ Adduction 2 Poor Comments Strength is 5/5 except as indicated above. Left Flexion (L2) 4+ Good+ Adduction 2 Poor External Rotation 4 Good Comments Strength is 5/5 except as indicated above. PT-OP-Q Treatments Start: 01/17/23 19:57 Freq: Status: Active Protocol: Document 02/13/23 11:20 LRN (Rec: 02/13/23 12:15 LRN [id number]) Therapeutic Exercises Supine Exercises Sup<>sit coord of PF/Breath Supine Exercise Name Sup<>sit coord of PF/Breath Reps/Minutes 6' PF/Sneeze, cough, blow nose, laugh tng Supine Exercise Name PF/Sneeze, cough, blow nose, laugh tng Reps/Minutes 8' Deep Breathing Supine Exercise Name Deep breathing vs chest breathing Reps/Minutes 3' Sitting Exercises Sit<>Stand coord of PF/Breath Sitting Exercise Name Sit<>Stand coord of PF/Breath Reps/Minutes 2' Self-Care/Home Management Treatment Education Other Education Bladder diary review with discussion of normal times between voids and voiding times and discussion of avoiding retaining urine in order to complete her outdoor tasks, diet/fluid change to avoid constipation and soft stool cycle. Pt education in PF anatomy with use of model and handouts , long discussion of ms support integrity and changes with aging, and different organ prolapse. Eduated and discusssed Urge deference techique with discussion of how it can work but decreased effectiveness with urine holding. Educated pt in advantage of core pressure management with use of deep breathing vs chest breathing. Issued Genital hygiene and Vulvar Care to be reviewed at next visit if needed. Activities Self-Care/Home Management Activities Issued handouts for self care of Urge Deference technique, General vulvar care and genital hygiene, Diaphragmatic breathing, Bed mobility for PF contraction and core pressure management. Issued handout for Bowel types and 2D anatomy handout at pt request. PT-OP-T Assessment and Plan Start: 01/17/23 19:57 Freq: Status: Active Protocol: Document 02/13/23 11:20 LRN (Rec: 02/13/23 12:15 LRN [id number]) Physical Therapy Assessment Goals Four Impairment Substitution of abdominal and gluteal ms to perform a PF contraction. Short Term Goal (STG) Pt will be educated in proper posturing to promote strengthening of the anterior or posterior pelvic floor muscles. STG Duration 03/13/23 (02/03/23: MET GOAL ) Cardiology Nurse Goal (LTG) Pt will be able to perform a PF contraction in the absence of abdominal/gluteal muscles. LTG Duration 04/27/23 Three Impairment Urinary incontinence walking to bathroom with a strong urge or sneeze. Short Term Goal (STG) Pt will be educated in urge deference technique and will be able to maintain urinary continence when going to bathroom (morning and at night after a drink). 02/13/23: Pt educated in urge deference technique. STG Duration 03/13/23 progressed, pt education complete 02/13/23 [facility] Goal (LTG) Improve PF strength with pt will be able to maintain urinary continence in the presence of a sneeze, cough or with laugh. Two Impairment Pt requires external manual assist for a bowel movement. Impairment Assist needed at transverse perineum or lateral to anal opening for BM. Short Term Goal (STG) Pt will be educated in how to manage her bowel movements and internal core pressures to minimize need for manual assist for bowel movements and worsening of her rectocele. 7/24/23: Pt education in management of internal core pressures to minimize need for manual assist for bowel movements and worsening of her rectocele through breathwork during coughing, sneezing, blowing of nose, laughing and with transfers. STG Duration 03/13/23 progressed 02/13/23 (need Bowel massage educ) Cardiology Nurse Goal (LTG) Strengthen the PF and modify diet to prevent need of external manual assist for having a bowel movement. LTG Duration 04/27/23 One Impairment Pt lacks an independent self care HEP. Short Term Goal (STG) Pt educated in proper transfers to lessen core abdominal pressure. STG Duration 03/13/23 (02/13/23: MET GOAL ) [facility] Goal (LTG) Pt will be independent in a self care HEP for PF strengthening, hip mobility and core/hip strengthening exercises. LTG Duration 04/27/23 Assessment Summary Assessment Pt receptive to education materal and monitoring of diet . Pt will need further education/training for core pressure management with transfers. Pt to try positioning as in squatty potty position to see if greater ease with having BM. Physical Therapy Plan Frequency and Duration Frequency of Treatment 1x/Week Plan of Care Start Date 01/27/23 Plan of Care End Date 04/27/23 Next Visit Focus/Plan Next Note Type Treatment Note Next Visit Plan Review for concerns with vulvar/genital care handout, and use of squatty potty for BM elimination (discuss digital assist if needed), Reviewproper breathing with transfer, and body mechanics for proper core pressure management. Pt education in proper Kegel without use of substitute muscles, Education in core pressure management with body mechanics . Add: PF strengthening (R side & posterior>anterior)/core ( rotators)/hip strengthening ( tianna hip AD, R hip ext, L hip flex/ER), ROM: Improve hip mobility (IR >ER), STM: improve abdominal soft tissue (bladder) mobility, Biofeedback for PF awareness training and strengthening ( hold EStim due to L BBB history). POC: Therapeutic Exercises, Neuromuscular Reeducation, Kinetic Activities. Assess deep breathing and start LE roll in/out ex when appropriate.
--- NOTE | 2023-02-27 14:42 | PT.OTN ---
Current Diagnoses Stiffness of unspecified hip, not elsewhere classified (02/27/23) Lordosis, unspecified, lumbosacral region (02/27/23) Muscle weakness (generalized) (02/27/23) Mixed incontinence (02/27/23) Incomplete uterovaginal prolapse (02/27/23) Physical Therapy Treatment Note PT-OP-A Visit Information Start: 01/17/23 19:57 Freq: Status: Active Protocol: Document 02/27/23 10:34 LRN (Rec: 02/27/23 11:19 LRN [id number]) Out-Patient Physical Therapy Visit Information Visit Information Visit Type Treatment Note Visit Start Time 10:35 Visit Stop Time 10:15 Total Visit Minutes 40 Visit Number 4 Precautions Precautions 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 History of L bundle branch block. PT-OP-B Current Condition Start: 01/17/23 19:57 Freq: Status: Active Protocol: Document 01/27/23 13:17 LRN (Rec: 01/27/23 14:00 LRN [id number]) Current Condition History of Current Condition Onset Date 1 yr ago Current Complaints Must manually redirect feces externally to redirect feces to anus (80%). History of Current Condition Pt for mixed incontinence, and incomplete uterogenital prolapse. Pt reports referred to therapy for PF strengthening because of rectocele and weak bladder. Rectocele present for a long time (5 yrs), BUT learned what it was a year ago, because poop and pooper doesn't line up 80% of time. Pt reports bladder is getting weaker and she leaks as she heads to the bathroom door first in the morning and in evening after drinking. 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 Future Testing and Treatments Planned Possible anal surgery, will decide in February, with possible surgery in May. Treatment Goals Patient/Caregiver Goals Pt goal is -to strengthen the PF to decrease need of external manual assist for having a bowel movement, and to learn how to manage her PF after surgery. -PF strengthening to not leak when going to bathroom ( morning and at night after a drink). Personal Factors Other Personal Factors That May Effect History of breast CA, does Therapy/Recovery physical work needs at home due to spouse inability to help because of his bad back. PT-OP-C Subjective Start: 01/17/23 19:57 Freq: Status: Active Protocol: Document 02/27/23 10:34 LRN (Rec: 02/27/23 11:19 LRN [id number]) OP-PT Subjective Patient Comments Patient Comments States she has not coordinated breathing/PF tightening with transfers. States in middle of the night was able to get up and use the bathroom in the presence with a strong urge, on the first urge, and was ble to make it to the bathroom. Patient Reported Progress Same PT-OP-I Pelvic Floor Start: 01/17/23 19:57 Freq: Status: Active Protocol: Document 01/27/23 13:17 LRN (Rec: 01/27/23 14:00 LRN [id number]) Pelvic Floor Assessment Urine Urinary Symptoms Urge Sensation Other Urinary Symptoms triggers: running water Leakage Size Small Leakage Cause Sneeze Leaks Per Day 1-2 Voiding Frequency 4-6x/day Nocturia 1-2x Pads Used In 24 Hours none Bowel Bowel Surgery No Bowel Symptoms Constipation Other Bowel Symptoms Sometimes constipation Bowel Movement Frequency 1/day Pelvic Clock Pelvic Clock 6-9 Atrophy Pelvic Clock 9-12 Atrophy Inter-Rectal Assessment Digital assessment: Weakness felt on R side of anal sphincter with contraction. Visible Bulge on R side of anal opening. Prolapse Urethrocele Grade 2 Rectocele Grade 2 Prolapse Comments Palpation of uterus with insertion ~6.5 cm per digital exam. Perineal Descent Resting Absent Bearing Absent Contraction Ability Voluntary Contraction Weak Manual Muscle Testing Left 3 Manual Muscle Testing Right 0 Manual Muscle Testing Anterior 2 Manual Muscle Testing Posterior 0 Muscle Endurance (Seconds) 3 Number of Quick Contractions In 10 3 Seconds Comments Pelvic Floor Comments Redness of external PF. Pt requires Gluteal and abdominal assist to perform a PF contraction. Weakness of 6-12 of the PF clock per vaginal digital assessment. EMG biofeedback assessment to be done at the next visit. PT-OP-J Posture/Palpation/Skin Start: 01/17/23 19:57 Freq: Status: Active Protocol: Document 01/27/23 13:17 LRN (Rec: 01/27/23 14:00 LRN [id number]) Posture Evaluation Position Standing L-Spine Posture Increased Lordosis Pelvis Posture Anteriorly Tilted Weight Distribution Balanced PT-OP-K Range of Motion Start: 01/17/23 19:57 Freq: Status: Active Protocol: Document 01/27/23 13:17 LRN (Rec: 01/27/23 14:00 LRN [id number]) Lumbar Spine Range of Motion Lumbar Spine Active Degrees Testing Position Standing Flexion 78 Extension 10 Rotation Left 10 Rotation Right 15 Lateral Flexion Left 15 Lateral Flexion Right 10 Comments Trunk AROM: Flexion is 78 deg ?s with 55 deg?s hip flexion, Trunk extension is 10 deg?s with 5 deg?s hip extension. Hip Goniometric Range of Motion Hip Right Passive Testing Position Supine Internal Rotation 30 External Rotation 65 Left Passive Testing Position Supine Internal Rotation 30 External Rotation 65 PT-OP-M Strength Start: 01/17/23 19:57 Freq: Status: Active Protocol: Document 01/27/23 13:17 LRN (Rec: 01/27/23 14:00 LRN [id number]) Trunk Strength Trunk Manual Muscle Testing Core Stabilization Loss of core rotational stability with hip flex/ext MMT Hip Strength Hip Manual Muscle Testing Right Extension (S1) 4+ Good+ Adduction 2 Poor Comments Strength is 5/5 except as indicated above. Left Flexion (L2) 4+ Good+ Adduction 2 Poor External Rotation 4 Good Comments Strength is 5/5 except as indicated above. PT-OP-Q Treatments Start: 01/17/23 19:57 Freq: Status: Active Protocol: Document 02/27/23 10:34 LRN (Rec: 02/27/23 11:19 LRN [id number]) Therapeutic Exercises Supine Exercises LE Roll in/out/breath/PF Supine Exercise Name LE Roll in/out/breath/PF Reps/Minutes 8' Comments Cuing for mvmt over 6 secs. PF in isolation of TA Supine Exercise Name Training for TA separation of PF. Reps/Minutes 7' Comments Cuing needed to breath due to breathholding. Sup<>sit coord of PF/Breath Supine Exercise Name Sup<>sit coord of PF/Breath Reps/Minutes 9' PF/Sneeze, cough, blow nose, laugh tng Supine Exercise Name PF/Sneeze, cough, blow nose, laugh tng Equipment Used Kleenex Reps/Minutes 8' Deep Breathing Supine Exercise Name Deep breathing vs chest breathing Reps/Minutes 3' Self-Care/Home Management Treatment Education Patient Education Home Exercise Program Other Education Discussed use of squatty potty . Briefly discussed self bowel massage. Activities Self-Care/Home Management Activities Issued & reviewed HEP: LE roll in/out/breath/PF contractions. PT-OP-T Assessment and Plan Start: 01/17/23 19:57 Freq: Status: Active Protocol: Document 02/27/23 10:34 LRN (Rec: 02/27/23 11:19 LRN [id number]) Physical Therapy Assessment Goals Four Impairment Substitution of abdominal and gluteal ms to perform a PF contraction. Short Term Goal (STG) Pt will be educated in proper posturing to promote strengthening of the anterior or posterior pelvic floor muscles. STG Duration 03/13/23 (02/03/23: MET GOAL ) Hand Picker Goal (LTG) Pt will be able to perform a PF contraction in the absence of abdominal/gluteal muscles. LTG Duration 04/27/23 Three Impairment Urinary incontinence walking to bathroom with a strong urge or sneeze. Short Term Goal (STG) Pt will be educated in urge deference technique and will be able to maintain urinary continence when going to bathroom (morning and at night after a drink). 02/13/23: Pt educated in urge deference technique. 03/16/23: No urinary leakage first in morning and at night due to going to the bathroom on the first urge. STG Duration 03/13/23 (02/27/23: MET GOAL) Intermediate Goal (LTG) Improve PF strength with pt will be able to maintain urinary continence in the presence of a sneeze, cough or with laugh. LTG Duration 04/27/23 Two Impairment Pt requires external manual assist for a bowel movement. Impairment Assist needed at transverse perineum or lateral to anal opening for BM. Short Term Goal (STG) Pt will be educated in how to manage her bowel movements and internal core pressures to minimize need for manual assist for bowel movements and worsening of her rectocele. 02/13/23: Pt education in management of internal core pressures to minimize need for manual assist for bowel movements and worsening of her rectocele through breathwork during coughing, sneezing, blowing of nose, laughing and with transfers. 02/27/23: Briefly discussed bowel massage. STG Duration 03/13/23 progressed 02/27/23 ( need Bowel massage educ) Intermediate Goal (LTG) Strengthen the PF and modify diet to prevent need of external manual assist for having a bowel movement. LTG Duration 04/27/23 One Impairment Pt lacks an independent self care HEP. Short Term Goal (STG) Pt educated in proper transfers to lessen core abdominal pressure. STG Duration 03/13/23 (02/13/23: MET GOAL ) Hand Picker Goal (LTG) Pt will be independent in a self care HEP for PF strengthening, hip mobility and core/hip strengthening exercises. LTG Duration 04/27/23 Assessment Summary Assessment Pt had poor recall of coordinating breath/PF contractions with transfers and movement patterns for coughing, sneezing, laughing. Good coordination of LE roll in/outs. Physical Therapy Plan Frequency and Duration Frequency of Treatment 1x/Week Plan of Care Start Date 01/27/23 Plan of Care End Date 04/27/23 Next Visit Focus/Plan Next Note Type Treatment Note Next Visit Plan Review for concerns with vulvar/genital care handout, and use of squatty potty for BM elimination (discuss digital assist if needed), 2nd review of proper breathing with transfer, and body mechanics for proper core pressure management. Pt education in proper Kegel without use of substitute muscles, Education in core pressure management with body mechanics . Add: PF strengthening (R side & posterior>anterior)/core ( rotators)/hip strengthening ( tianna hip AD, R hip ext, L hip flex/ER), ROM: Improve hip mobility (IR >ER), STM: improve abdominal soft tissue (bladder) mobility, Biofeedback for PF awareness training and strengthening ( hold EStim due to L BBB history). POC: Therapeutic Exercises, Neuromuscular Reeducation, Kinetic Activities. Assess deep breathing and start LE roll in/out ex when appropriate.
--- NOTE | 2023-03-09 13:16 | PT.OTN ---
Current Diagnoses Stiffness of unspecified hip, not elsewhere classified (03/09/23) Lordosis, unspecified, lumbosacral region (03/09/23) Muscle weakness (generalized) (03/09/23) Mixed incontinence (03/09/23) Incomplete uterovaginal prolapse (03/09/23) Physical Therapy Treatment Note PT-OP-A Visit Information Start: 01/17/23 19:57 Freq: Status: Active Protocol: Document 03/09/23 12:30 LRN (Rec: 03/09/23 13:16 LRN [id number]) Out-Patient Physical Therapy Visit Information Visit Information Visit Type Treatment Note Visit Start Time 12:30 Visit Stop Time 13:09 Total Visit Minutes 39 Visit Number 5 Evaluation Information Evaluation Date 01/27/23 Precautions Precautions 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 History of L bundle branch block. PT-OP-B Current Condition Start: 01/17/23 19:57 Freq: Status: Active Protocol: Document 01/27/23 13:17 LRN (Rec: 01/27/23 14:00 LRN [id number]) Current Condition History of Current Condition Onset Date 1 yr ago Current Complaints Must manually redirect feces externally to redirect feces to anus (80%). History of Current Condition Pt for mixed incontinence, and incomplete uterogenital prolapse. Pt reports referred to therapy for PF strengthening because of rectocele and weak bladder. Rectocele present for a long time (5 yrs), BUT learned what it was a year ago, because poop and pooper doesn't line up 80% of time. Pt reports bladder is getting weaker and she leaks as she heads to the bathroom door first in the morning and in evening after drinking. 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 Future Testing and Treatments Planned Possible anal surgery, will decide in February, with possible surgery in May. Treatment Goals Patient/Caregiver Goals Pt goal is -to strengthen the PF to decrease need of external manual assist for having a bowel movement, and to learn how to manage her PF after surgery. -PF strengthening to not leak when going to bathroom ( morning and at night after a drink). Personal Factors Other Personal Factors That May Effect History of breast CA, does Therapy/Recovery physical work needs at home due to spouse inability to help because of his bad back. PT-OP-C Subjective Start: 01/17/23 19:57 Freq: Status: Active Protocol: Document 03/09/23 12:30 LRN (Rec: 03/09/23 13:16 LRN [id number]) OP-PT Subjective Patient Comments Patient Comments Thinks the more Kegels she does the more urgency she has although it may be because she pays attention more. Hasn't had urinary leakage, but feels it leaking when sitting on toilet. States 7/10 times she has to digitally assist with BM's; therefore hasn't changed . Based on sleep study she has sleep apnea and doesn't breath deeply, and will be put on a machine in 4-6 wks. PT-OP-I Pelvic Floor Start: 01/17/23 19:57 Freq: Status: Active Protocol: Document 01/27/23 13:17 LRN (Rec: 01/27/23 14:00 LRN [id number]) Pelvic Floor Assessment Urine Urinary Symptoms Urge Sensation Other Urinary Symptoms triggers: running water Leakage Size Small Leakage Cause Sneeze Leaks Per Day 1-2 Voiding Frequency 4-6x/day Nocturia 1-2x Pads Used In 24 Hours none Bowel Bowel Surgery No Bowel Symptoms Constipation Other Bowel Symptoms Sometimes constipation Bowel Movement Frequency 1/day Pelvic Clock Pelvic Clock 6-9 Atrophy Pelvic Clock 9-12 Atrophy Inter-Rectal Assessment Digital assessment: Weakness felt on R side of anal sphincter with contraction. Visible Bulge on R side of anal opening. Prolapse Urethrocele Grade 2 Rectocele Grade 2 Prolapse Comments Palpation of uterus with insertion ~6.5 cm per digital exam. Perineal Descent Resting Absent Bearing Absent Contraction Ability Voluntary Contraction Weak Manual Muscle Testing Left 3 Manual Muscle Testing Right 0 Manual Muscle Testing Anterior 2 Manual Muscle Testing Posterior 0 Muscle Endurance (Seconds) 3 Number of Quick Contractions In 10 3 Seconds Comments Pelvic Floor Comments Redness of external PF. Pt requires Gluteal and abdominal assist to perform a PF contraction. Weakness of 6-12 of the PF clock per vaginal digital assessment. EMG biofeedback assessment to be done at the next visit. PT-OP-J Posture/Palpation/Skin Start: 01/17/23 19:57 Freq: Status: Active Protocol: Document 01/27/23 13:17 LRN (Rec: 01/27/23 14:00 LRN [id number]) Posture Evaluation Position Standing L-Spine Posture Increased Lordosis Pelvis Posture Anteriorly Tilted Weight Distribution Balanced PT-OP-K Range of Motion Start: 01/17/23 19:57 Freq: Status: Active Protocol: Document 01/27/23 13:17 LRN (Rec: 01/27/23 14:00 LRN [id number]) Lumbar Spine Range of Motion Lumbar Spine Active Degrees Testing Position Standing Flexion 78 Extension 10 Rotation Left 10 Rotation Right 15 Lateral Flexion Left 15 Lateral Flexion Right 10 Comments Trunk AROM: Flexion is 78 deg ?s with 55 deg?s hip flexion, Trunk extension is 10 deg?s with 5 deg?s hip extension. Hip Goniometric Range of Motion Hip Right Passive Testing Position Supine Internal Rotation 30 External Rotation 65 Left Passive Testing Position Supine Internal Rotation 30 External Rotation 65 PT-OP-M Strength Start: 01/17/23 19:57 Freq: Status: Active Protocol: Document 01/27/23 13:17 LRN (Rec: 01/27/23 14:00 LRN [id number]) Trunk Strength Trunk Manual Muscle Testing Core Stabilization Loss of core rotational stability with hip flex/ext MMT Hip Strength Hip Manual Muscle Testing Right Extension (S1) 4+ Good+ Adduction 2 Poor Comments Strength is 5/5 except as indicated above. Left Flexion (L2) 4+ Good+ Adduction 2 Poor External Rotation 4 Good Comments Strength is 5/5 except as indicated above. PT-OP-Q Treatments Start: 01/17/23 19:57 Freq: Status: Active Protocol: Document 03/09/23 12:30 LRN (Rec: 03/09/23 13:16 LRN [id number]) Therapeutic Exercises Supine Exercises PF/Ball Squeeze/Bridge Supine Exercise Name F/Ball Squeeze/Bridge Reps/Minutes 10x Comments Cuing for lift with PF contraction. PF/Bridge Supine Exercise Name PF/Bridge Reps/Minutes 10x Comments Cuing for lift with PF contraction. LE Roll in/out/breath/PF Supine Exercise Name LE Roll in/out/breath/PF Reps/Minutes 8' Comments Cuing for mvmt over 6 secs. Sup<>sit coord of PF/Breath Supine Exercise Name Sup<>sit coord of PF/Breath Reps/Minutes 4' Comments Cued for hip hinge to feel PF lift with transfer Deep Breathing Supine Exercise Name Deep breathing vs chest breathing Reps/Minutes 1' Comments Pt able to deep breath properly. Self-Care/Home Management Treatment Education Other Education Pt education in bladder retraining with discussion and education in training from first void every 3-4 hrs. Discussed at length pt routine in morning and possible reason for urinating after voiding or in shower. Discussed pt to not turn shower water on until after voiding and waiting for urge to down. Reviewed use of urge deference technique to not have urge with voiding. PT-OP-T Assessment and Plan Start: 01/17/23 19:57 Freq: Status: Active Protocol: Document 03/09/23 12:30 LRN (Rec: 03/09/23 13:16 LRN [id number]) Physical Therapy Assessment Goals Four Impairment Substitution of abdominal and gluteal ms to perform a PF contraction. Short Term Goal (STG) Pt will be educated in proper posturing to promote strengthening of the anterior or posterior pelvic floor muscles. STG Duration 03/13/23 (02/03/23: MET GOAL ) Assisted Goal (LTG) Pt will be able to perform a PF contraction in the absence of abdominal/gluteal muscles. LTG Duration 04/27/23 (03/09/23: MET GOAL ) Three Impairment Urinary incontinence walking to bathroom with a strong urge or sneeze. Short Term Goal (STG) Pt will be educated in urge deference technique and will be able to maintain urinary continence when going to bathroom (morning and at night after a drink). 02/13/23: Pt educated in urge deference technique. 03/16/23: No urinary leakage first in morning and at night due to going to the bathroom on the first urge. STG Duration 03/13/23 (02/27/23: MET GOAL) Assisted Goal (LTG) Improve PF strength with pt will be able to maintain urinary continence in the presence of a sneeze, cough or with laugh. 03/09/23: Pt reports for first time no leakage with sneeze, cough. LTG Duration 04/27/23 (03/09/23: 1st time MET GOAL) Two Impairment Pt requires external manual assist for a bowel movement. Impairment Assist needed at transverse perineum or lateral to anal opening for BM. Short Term Goal (STG) Pt will be educated in how to manage her bowel movements and internal core pressures to minimize need for manual assist for bowel movements and worsening of her rectocele. 02/13/23: Pt education in management of internal core pressures to minimize need for manual assist for bowel movements and worsening of her rectocele through breathwork during coughing, sneezing, blowing of nose, laughing and with transfers. 02/27/23: Briefly discussed bowel massage. STG Duration 03/13/23 progressed 02/27/23 ( need Bowel massage educ) Mold Dumper Goal (LTG) Strengthen the PF and modify diet to prevent need of external manual assist for having a bowel movement. 03/09/23: Progressed to PF/ saba hip AB/Bridge LTG Duration 04/27/23 progressed 03/09/23 One Impairment Pt lacks an independent self care HEP. Short Term Goal (STG) Pt educated in proper transfers to lessen core abdominal pressure. STG Duration 03/13/23 (02/13/23: MET GOAL ) Assisted Goal (LTG) Pt will be independent in a self care HEP for PF strengthening, hip mobility and core/hip strengthening exercises. 03/09/23: HEP: Pt doing TA, LE roll in/outs w/PF/Breathing . Added PF/hip AD-ball squeeze/bridge LTG Duration 04/27/23 progressed 03/09/23 Assessment Summary Assessment No questions regarding vulvar/ genital care. Pt demonstrates proper Kegel without use of substitute muscles. She is able to perform Bridge with PF contraction to anterior/ posterior PF without difficulty; HEP handout needed . Physical Therapy Plan Frequency and Duration Frequency of Treatment 1x/Week Plan of Care Start Date 01/27/23 Plan of Care End Date 04/27/23 Next Visit Focus/Plan Next Note Type Treatment Note Next Visit Plan Review & issue HEP: PF/Ball squeeze/bridge, and lateral wall PF strengthening (after teaching). 2nd review of proper breathing with transfer, and body mechanics for proper core pressure management. Education in core pressure management with body mechanics . Add Lateral wall and progress anterior PF strengthening. Add: PF strengthening (R side & posterior>anterior)/core ( rotators)/hip strengthening ( tianna hip AD, R hip ext, L hip flex/ER), ROM: Improve hip mobility (IR >ER), STM: improve abdominal soft tissue (bladder) mobility, Biofeedback for PF awareness training and strengthening ( hold EStim due to L BBB history). POC: Therapeutic Exercises, Neuromuscular Reeducation, Kinetic Activities.
--- NOTE | 2023-03-16 16:13 | PT.OTN ---
Current Diagnoses Stiffness of unspecified hip, not elsewhere classified (03/16/23) Lordosis, unspecified, lumbosacral region (03/16/23) Muscle weakness (generalized) (03/16/23) Mixed incontinence (03/16/23) Incomplete uterovaginal prolapse (03/16/23) Physical Therapy Treatment Note PT-OP-A Visit Information Start: 01/17/23 19:57 Freq: Status: Active Protocol: Document 03/16/23 12:34 LRN (Rec: 03/16/23 13:20 LRN [id number]) Out-Patient Physical Therapy Visit Information Visit Information Visit Type Treatment Note Visit Start Time 12:34 Visit Stop Time 13:20 Total Visit Minutes 46 Visit Number 6 Evaluation Information Evaluation Date 01/27/23 Precautions Precautions 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 History of L bundle branch block. PT-OP-B Current Condition Start: 01/17/23 19:57 Freq: Status: Active Protocol: Document 01/27/23 13:17 LRN (Rec: 01/27/23 14:00 LRN [id number]) Current Condition History of Current Condition Onset Date 1 yr ago Current Complaints Must manually redirect feces externally to redirect feces to anus (80%). History of Current Condition Pt for mixed incontinence, and incomplete uterogenital prolapse. Pt reports referred to therapy for PF strengthening because of rectocele and weak bladder. Rectocele present for a long time (5 yrs), BUT learned what it was a year ago, because poop and pooper doesn't line up 80% of time. Pt reports bladder is getting weaker and she leaks as she heads to the bathroom door first in the morning and in evening after drinking. 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 Future Testing and Treatments Planned Possible anal surgery, will decide in February, with possible surgery in May. Treatment Goals Patient/Caregiver Goals Pt goal is -to strengthen the PF to decrease need of external manual assist for having a bowel movement, and to learn how to manage her PF after surgery. -PF strengthening to not leak when going to bathroom ( morning and at night after a drink). Personal Factors Other Personal Factors That May Effect History of breast CA, does Therapy/Recovery physical work needs at home due to spouse inability to help because of his bad back. PT-OP-C Subjective Start: 01/17/23 19:57 Freq: Status: Active Protocol: Document 03/16/23 12:34 LRN (Rec: 03/16/23 13:20 LRN [id number]) OP-PT Subjective Patient Comments Patient Comments Better at relaxing abdomen and tightening PF as sneeze. States she is voiding every 2- 3 hrs and one time during the night. PT-OP-I Pelvic Floor Start: 01/17/23 19:57 Freq: Status: Active Protocol: Document 01/27/23 13:17 LRN (Rec: 01/27/23 14:00 LRN [id number]) Pelvic Floor Assessment Urine Urinary Symptoms Urge Sensation Other Urinary Symptoms triggers: running water Leakage Size Small Leakage Cause Sneeze Leaks Per Day 1-2 Voiding Frequency 4-6x/day Nocturia 1-2x Pads Used In 24 Hours none Bowel Bowel Surgery No Bowel Symptoms Constipation Other Bowel Symptoms Sometimes constipation Bowel Movement Frequency 1/day Pelvic Clock Pelvic Clock 6-9 Atrophy Pelvic Clock 9-12 Atrophy Inter-Rectal Assessment Digital assessment: Weakness felt on R side of anal sphincter with contraction. Visible Bulge on R side of anal opening. Prolapse Urethrocele Grade 2 Rectocele Grade 2 Prolapse Comments Palpation of uterus with insertion ~6.5 cm per digital exam. Perineal Descent Resting Absent Bearing Absent Contraction Ability Voluntary Contraction Weak Manual Muscle Testing Left 3 Manual Muscle Testing Right 0 Manual Muscle Testing Anterior 2 Manual Muscle Testing Posterior 0 Muscle Endurance (Seconds) 3 Number of Quick Contractions In 10 3 Seconds Comments Pelvic Floor Comments Redness of external PF. Pt requires Gluteal and abdominal assist to perform a PF contraction. Weakness of 6-12 of the PF clock per vaginal digital assessment. EMG biofeedback assessment to be done at the next visit. PT-OP-J Posture/Palpation/Skin Start: 01/17/23 19:57 Freq: Status: Active Protocol: Document 01/27/23 13:17 LRN (Rec: 01/27/23 14:00 LRN [id number]) Posture Evaluation Position Standing L-Spine Posture Increased Lordosis Pelvis Posture Anteriorly Tilted Weight Distribution Balanced PT-OP-K Range of Motion Start: 01/17/23 19:57 Freq: Status: Active Protocol: Document 01/27/23 13:17 LRN (Rec: 01/27/23 14:00 LRN [id number]) Lumbar Spine Range of Motion Lumbar Spine Active Degrees Testing Position Standing Flexion 78 Extension 10 Rotation Left 10 Rotation Right 15 Lateral Flexion Left 15 Lateral Flexion Right 10 Comments Trunk AROM: Flexion is 78 deg ?s with 55 deg?s hip flexion, Trunk extension is 10 deg?s with 5 deg?s hip extension. Hip Goniometric Range of Motion Hip Right Passive Testing Position Supine Internal Rotation 30 External Rotation 65 Left Passive Testing Position Supine Internal Rotation 30 External Rotation 65 PT-OP-M Strength Start: 01/17/23 19:57 Freq: Status: Active Protocol: Document 01/27/23 13:17 LRN (Rec: 01/27/23 14:00 LRN [id number]) Trunk Strength Trunk Manual Muscle Testing Core Stabilization Loss of core rotational stability with hip flex/ext MMT Hip Strength Hip Manual Muscle Testing Right Extension (S1) 4+ Good+ Adduction 2 Poor Comments Strength is 5/5 except as indicated above. Left Flexion (L2) 4+ Good+ Adduction 2 Poor External Rotation 4 Good Comments Strength is 5/5 except as indicated above. PT-OP-Q Treatments Start: 01/17/23 19:57 Freq: Status: Active Protocol: Document 03/16/23 12:34 LRN (Rec: 03/16/23 13:20 LRN [id number]) Therapeutic Exercises Supine Exercises Iliopsoas stretch Supine Exercise Name Alirio Test position Side bilateral Reps/Minutes 5' Comments Cued to not stretch into back discomfort. Lateral Hip stretch Supine Exercise Name Lateral Hip stretch Side bilateral Reps/Minutes 5' Comments Cued to rest heel on opposite distal thigh for stretch Piriformis Stretch Supine Exercise Name Stretch to tolerance (pt w/tianna TKA's) Side bilateral Reps/Minutes 6' Comments Cued not to stretch into pain PF/Ball Squeeze/Bridge Supine Exercise Name PF/Bridge/ball squeeze/breath Reps/Minutes 8' Comments Cuing for lift with PF contraction/breath. PF/Bridge Supine Exercise Name PF/Bridge/Hip AB Equipment Used Lev 2 TBand Reps/Minutes 3' Comments Cuing for lift with PF contraction. Sup<>sit coord of PF/Breath Supine Exercise Name Sup<>sit coord of PF/Breath Reps/Minutes 4' Comments Cued for hip hinge to feel PF lift with transfer Sitting Exercises Sit<>Stand coord of PF/Breath Sitting Exercise Name Sit<>Stand coord of PF/Breath Reps/Minutes 2' Self-Care/Home Management Treatment Education Patient Education Home Exercise Program Activities Self-Care/Home Management Activities Issued and reviewed HEP: Piriformis, Lateral Hip and Ilipsoas stretch (Alirio Test position). Issued Lev 3 TBand for PF/Bridge/Hip AB and adding mvmt to PF/Bridge/ball squeeze Issued & reviewed HEP: Bowel massage. PT-OP-T Assessment and Plan Start: 01/17/23 19:57 Freq: Status: Active Protocol: Document 03/16/23 12:34 LRN (Rec: 03/16/23 13:20 LRN [id number]) Physical Therapy Assessment Goals Four Impairment Substitution of abdominal and gluteal ms to perform a PF contraction. Short Term Goal (STG) Pt will be educated in proper posturing to promote strengthening of the anterior or posterior pelvic floor muscles. STG Duration 03/13/23 (02/03/23: MET GOAL ) Care Home Goal (LTG) Pt will be able to perform a PF contraction in the absence of abdominal/gluteal muscles. LTG Duration 04/27/23 (03/09/23: MET GOAL ) Three Impairment Urinary incontinence walking to bathroom with a strong urge or sneeze. Short Term Goal (STG) Pt will be educated in urge deference technique and will be able to maintain urinary continence when going to bathroom (morning and at night after a drink). 02/13/23: Pt educated in urge deference technique. 03/16/23: No urinary leakage first in morning and at night due to going to the bathroom on the first urge. STG Duration 03/13/23 (02/27/23: MET GOAL) Motor Boss Goal (LTG) Improve PF strength with pt will be able to maintain urinary continence in the presence of a sneeze, cough or with laugh. 03/09/23: Pt reports for first time no leakage with sneeze, cough. 03/16/23: Pt reports no urinary leakage with cough, sneeze or laugh. LTG Duration 04/27/23 (03/16/23: MET GOAL ) Two Impairment Pt requires external manual assist for a bowel movement. Impairment Assist needed at transverse perineum or lateral to anal opening for BM. Short Term Goal (STG) Pt will be educated in how to manage her bowel movements and internal core pressures to minimize need for manual assist for bowel movements and worsening of her rectocele. 02/13/23: Pt education in management of internal core pressures to minimize need for manual assist for bowel movements and worsening of her rectocele through breathwork during coughing, sneezing, blowing of nose, laughing and with transfers. 02/27/23: Briefly discussed bowel massage. 03/16/23: Educated and training for bowel massage. STG Duration 03/13/23 (03/16/23: MET GOAL ) Care Home Goal (LTG) Strengthen the PF and modify diet to prevent need of external manual assist for having a bowel movement. 03/09/23: Progressed to PF/ saba hip AB/Bridge LTG Duration 04/27/23 progressed 03/09/23 One Impairment Pt lacks an independent self care HEP. Short Term Goal (STG) Pt educated in proper transfers to lessen core abdominal pressure. STG Duration 03/13/23 (02/13/23: MET GOAL ) Care Home Goal (LTG) Pt will be independent in a self care HEP for PF strengthening, hip mobility and core/hip strengthening exercises. 03/09/23: HEP: Pt doing TA, LE roll in/outs w/PF/Breathing . Added PF/hip AD-ball squeeze/bridge LTG Duration 04/27/23 progressed 03/09/23 Progress Towards Goals Progress Comments LTG #3 MET. Pt able to maintain urinary continence in the presence of a sneeze, cough or with laugh. STG #2 MET. Pt educated in how to manage her bowel movements and internal core pressures to minimize need for manual assist for bowel movements. Assessment Summary Assessment Pt reports she has had EStim during other PT rehab in the past w/o consequence in relation to her Bundle Branch Block; therefore the pt should be able to tolerate PF EStim. Pt appears to not be fully voiding stool when having BM due to impatient in sitting to void. It was recommended to pt to take her time to see if she can void fully before stopping. Poor consistency in compliance with coordinated breathwork with transfers and daily activities. Pt appears to be compliant at nighttime with transfer out of bed. Physical Therapy Plan Frequency and Duration Frequency of Treatment 1x/Week Plan of Care Start Date 01/27/23 Plan of Care End Date 04/27/23 Next Visit Focus/Plan Next Note Type Treatment Note Next Visit Plan Monitor for proper breathing with transfer, and body mechanics for proper core pressure management. Further education if needed. Review & issue HEP: lateral wall PF strengthening. Progress anterior PF strengthening. Add: PF strengthening (R side & posterior>anterior)/core ( rotators)/hip strengthening ( tianna hip AD, R hip ext, L hip flex/ER) STM: improve abdominal soft tissue (bladder) mobility, Biofeedback for PF awareness training and strengthening ( hold EStim due to L BBB history). POC: Therapeutic Exercises, Neuromuscular Reeducation, Kinetic Activities.
--- NOTE | 2023-03-23 13:16 | PT.OTN ---
Current Diagnoses Stiffness of unspecified hip, not elsewhere classified (03/23/23) Lordosis, unspecified, lumbosacral region (03/23/23) Muscle weakness (generalized) (03/23/23) Mixed incontinence (03/23/23) Incomplete uterovaginal prolapse (03/23/23) Physical Therapy Treatment Note PT-OP-A Visit Information Start: 01/17/23 19:57 Freq: Status: Active Protocol: Document 03/23/23 12:34 LRN (Rec: 03/23/23 13:14 LRN [id number]) Out-Patient Physical Therapy Visit Information Visit Information Visit Type Treatment Note Visit Start Time 12:34 Visit Stop Time 13:13 Total Visit Minutes 39 Visit Number 7 PT-OP-B Current Condition Start: 01/17/23 19:57 Freq: Status: Active Protocol: Document 01/27/23 13:17 LRN (Rec: 01/27/23 14:00 LRN [id number]) Current Condition History of Current Condition Onset Date 1 yr ago Current Complaints Must manually redirect feces externally to redirect feces to anus (80%). History of Current Condition Pt for mixed incontinence, and incomplete uterogenital prolapse. Pt reports referred to therapy for PF strengthening because of rectocele and weak bladder. Rectocele present for a long time (5 yrs), BUT learned what it was a year ago, because poop and pooper doesn't line up 80% of time. Pt reports bladder is getting weaker and she leaks as she heads to the bathroom door first in the morning and in evening after drinking. 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 Future Testing and Treatments Planned Possible anal surgery, will decide in February, with possible surgery in May. Treatment Goals Patient/Caregiver Goals Pt goal is -to strengthen the PF to decrease need of external manual assist for having a bowel movement, and to learn how to manage her PF after surgery. -PF strengthening to not leak when going to bathroom ( morning and at night after a drink). Personal Factors Other Personal Factors That May Effect History of breast CA, does Therapy/Recovery physical work needs at home due to spouse inability to help because of his bad back. PT-OP-C Subjective Start: 01/17/23 19:57 Freq: Status: Active Protocol: Document 03/23/23 12:34 LRN (Rec: 03/23/23 13:14 LRN [id number]) OP-PT Subjective Patient Comments Patient Comments Fell the day of the last treatment at home, so didn't do much this week. Fell stepping back in garden onto rebar onto R shoulder so neck is stiff. One leakage during the day after dinner when pulling pants down, the 4 quick squeezes didn't work. PT-OP-I Pelvic Floor Start: 01/17/23 19:57 Freq: Status: Active Protocol: Document 01/27/23 13:17 LRN (Rec: 01/27/23 14:00 LRN [id number]) Pelvic Floor Assessment Urine Urinary Symptoms Urge Sensation Other Urinary Symptoms triggers: running water Leakage Size Small Leakage Cause Sneeze Leaks Per Day 1-2 Voiding Frequency 4-6x/day Nocturia 1-2x Pads Used In 24 Hours none Bowel Bowel Surgery No Bowel Symptoms Constipation Other Bowel Symptoms Sometimes constipation Bowel Movement Frequency 1/day Pelvic Clock Pelvic Clock 6-9 Atrophy Pelvic Clock 9-12 Atrophy Inter-Rectal Assessment Digital assessment: Weakness felt on R side of anal sphincter with contraction. Visible Bulge on R side of anal opening. Prolapse Urethrocele Grade 2 Rectocele Grade 2 Prolapse Comments Palpation of uterus with insertion ~6.5 cm per digital exam. Perineal Descent Resting Absent Bearing Absent Contraction Ability Voluntary Contraction Weak Manual Muscle Testing Left 3 Manual Muscle Testing Right 0 Manual Muscle Testing Anterior 2 Manual Muscle Testing Posterior 0 Muscle Endurance (Seconds) 3 Number of Quick Contractions In 10 3 Seconds Comments Pelvic Floor Comments Redness of external PF. Pt requires Gluteal and abdominal assist to perform a PF contraction. Weakness of 6-12 of the PF clock per vaginal digital assessment. EMG biofeedback assessment to be done at the next visit. PT-OP-J Posture/Palpation/Skin Start: 01/17/23 19:57 Freq: Status: Active Protocol: Document 01/27/23 13:17 LRN (Rec: 01/27/23 14:00 LRN [id number]) Posture Evaluation Position Standing L-Spine Posture Increased Lordosis Pelvis Posture Anteriorly Tilted Weight Distribution Balanced PT-OP-K Range of Motion Start: 01/17/23 19:57 Freq: Status: Active Protocol: Document 01/27/23 13:17 LRN (Rec: 01/27/23 14:00 LRN [id number]) Lumbar Spine Range of Motion Lumbar Spine Active Degrees Testing Position Standing Flexion 78 Extension 10 Rotation Left 10 Rotation Right 15 Lateral Flexion Left 15 Lateral Flexion Right 10 Comments Trunk AROM: Flexion is 78 deg ?s with 55 deg?s hip flexion, Trunk extension is 10 deg?s with 5 deg?s hip extension. Hip Goniometric Range of Motion Hip Right Passive Testing Position Supine Internal Rotation 30 External Rotation 65 Left Passive Testing Position Supine Internal Rotation 30 External Rotation 65 PT-OP-M Strength Start: 01/17/23 19:57 Freq: Status: Active Protocol: Document 01/27/23 13:17 LRN (Rec: 01/27/23 14:00 LRN [id number]) Trunk Strength Trunk Manual Muscle Testing Core Stabilization Loss of core rotational stability with hip flex/ext MMT Hip Strength Hip Manual Muscle Testing Right Extension (S1) 4+ Good+ Adduction 2 Poor Comments Strength is 5/5 except as indicated above. Left Flexion (L2) 4+ Good+ Adduction 2 Poor External Rotation 4 Good Comments Strength is 5/5 except as indicated above. PT-OP-Q Treatments Start: 01/17/23 19:57 Freq: Status: Active Protocol: Document 03/23/23 12:34 LRN (Rec: 03/23/23 13:14 LRN [id number]) Therapeutic Exercises Supine Exercises Iliopsoas stretch Supine Exercise Name Alirio Test position - review needed Side bilateral Reps/Minutes 2' Comments Cued to not stretch into back discomfort, to flatten back. Lateral Hip stretch Supine Exercise Name Lateral Hip stretch - review needed Side bilateral Reps/Minutes 2' Comments Cued to rest heel on opposite distal thigh for stretch Piriformis Stretch Supine Exercise Name Stretch to tolerance (pt w/tianna TKA's) - review needed Side bilateral Reps/Minutes 5' Comments Cued not to pull ankle w/knee to opp shoulder due to knee pain. PF/Ball Squeeze/Bridge Supine Exercise Name PF/Bridge/ball squeeze/breath Reps/Minutes 8' Comments Cuing for lift with PF contraction/breath. PF/Bridge Supine Exercise Name PF/Bridge/Hip AB Equipment Used Lev 2 TBand Reps/Minutes 3' Comments Cuing for lift with PF contraction. LE Roll in/out/breath/PF Supine Exercise Name LE Roll in/out/breath/PF Reps/Minutes 10x PF holding and 10x w/o PF Comments Cuing for mvmt over 6 secs. Neuro Re-Education Treatment Other Activities PF awareness training Details E-Stim PF awareness training and strengthening Reps/Duration 12' Comments 5' on Estim of 50 pps, 13 intensity, ON/OFF of 10/20 secs. Self-Care/Home Management Treatment Activities Self-Care/Home Management Activities Pt requested handouts of ex's last given; therefore reissued HEP: Hip stretches and ILU massage. PT-OP-T Assessment and Plan Start: 01/17/23 19:57 Freq: Status: Active Protocol: Document 03/23/23 12:34 LRN (Rec: 03/23/23 13:14 LRN [id number]) Physical Therapy Assessment Goals Three Impairment Urinary incontinence walking to bathroom with a strong urge or sneeze. Short Term Goal (STG) Pt will be educated in urge deference technique and will be able to maintain urinary continence when going to bathroom (morning and at night after a drink). 02/13/23: Pt educated in urge deference technique. 03/16/23: No urinary leakage first in morning and at night due to going to the bathroom on the first urge. STG Duration 03/13/23 (02/27/23: MET GOAL) Parts Representative Goal (LTG) Improve PF strength with pt will be able to maintain urinary continence in the presence of a sneeze, cough or with laugh. 03/09/23: Pt reports for first time no leakage with sneeze, cough. 03/16/23: Pt reports no urinary leakage with cough, sneeze or laugh. LTG Duration 04/27/23 (03/16/23: MET GOAL ) Two Impairment Pt requires external manual assist for a bowel movement. Impairment Assist needed at transverse perineum or lateral to anal opening for BM. Short Term Goal (STG) Pt will be educated in how to manage her bowel movements and internal core pressures to minimize need for manual assist for bowel movements and worsening of her rectocele. 02/13/23: Pt education in management of internal core pressures to minimize need for manual assist for bowel movements and worsening of her rectocele through breathwork during coughing, sneezing, blowing of nose, laughing and with transfers. 02/27/23: Briefly discussed bowel massage. 03/16/23: Educated and training for bowel massage. STG Duration 03/13/23 (03/16/23: MET GOAL ) Group Home Goal (LTG) Strengthen the PF and modify diet to prevent need of external manual assist for having a bowel movement. 03/09/23: Progressed to PF/ saba hip AB/Bridge LTG Duration 04/27/23 progressed 03/09/23 One Impairment Pt lacks an independent self care HEP. Short Term Goal (STG) Pt educated in proper transfers to lessen core abdominal pressure. STG Duration 03/13/23 (02/13/23: MET GOAL ) Group Home Goal (LTG) Pt will be independent in a self care HEP for PF strengthening, hip mobility and core/hip strengthening exercises. 03/09/23: HEP: Pt doing TA, LE roll in/outs w/PF/Breathing . Added PF/hip AD-ball squeeze/bridge 03/23/23: HEP issued: Piriformis and lateral hip, and iliopsoas stretch. LTG Duration 04/27/23 progressed 03/23/23 Assessment Summary Assessment Pt needed review of HEP due to did not have her handouts and new ones needed to be issued. Pt doing better with coordination of breathwork with transfers, reporting not all the time. Pt showed good tolerance to PF contractions with use of Estim for PF contraction strengthening. No adverse response to EStim for PF awareness and strength training. Physical Therapy Plan Frequency and Duration Frequency of Treatment 1x/Week Plan of Care Start Date 01/27/23 Plan of Care End Date 04/27/23 Next Visit Focus/Plan Next Note Type Treatment Note Next Visit Plan Assess response to EStim. Use for strengthening awareness w /stim and for biofeedback. Review & issue HEP: lateral wall PF strengthening. Progress anterior PF strengthening. Add: PF strengthening (R side & posterior>anterior)/core ( rotators)/hip strengthening ( tianna hip AD, R hip ext, L hip flex/ER) STM: improve abdominal soft tissue (bladder) mobility, Biofeedback for PF strengthening. POC: Therapeutic Exercises, Neuromuscular Reeducation, Kinetic Activities.
--- NOTE | 2023-03-31 13:40 | PT.OTN ---
Current Diagnoses Stiffness of unspecified hip, not elsewhere classified (03/31/23) Lordosis, unspecified, lumbosacral region (03/31/23) Muscle weakness (generalized) (03/31/23) Mixed incontinence (03/31/23) Incomplete uterovaginal prolapse (03/31/23) Physical Therapy Treatment Note PT-OP-A Visit Information Start: 01/17/23 19:57 Freq: Status: Active Protocol: Document 03/31/23 12:35 LRN (Rec: 03/31/23 13:38 LRN [id number]) Out-Patient Physical Therapy Visit Information Visit Information Visit Type Treatment Note Visit Start Time 12:35 Visit Stop Time 13:15 Total Visit Minutes 40 Visit Number 8 Evaluation Information Evaluation Date 01/27/23 Precautions Precautions 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 History of L bundle branch block. PT-OP-B Current Condition Start: 01/17/23 19:57 Freq: Status: Active Protocol: Document 01/27/23 13:17 LRN (Rec: 01/27/23 14:00 LRN [id number]) Current Condition History of Current Condition Onset Date 1 yr ago Current Complaints Must manually redirect feces externally to redirect feces to anus (80%). History of Current Condition Pt for mixed incontinence, and incomplete uterogenital prolapse. Pt reports referred to therapy for PF strengthening because of rectocele and weak bladder. Rectocele present for a long time (5 yrs), BUT learned what it was a year ago, because poop and pooper doesn't line up 80% of time. Pt reports bladder is getting weaker and she leaks as she heads to the bathroom door first in the morning and in evening after drinking. 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 Future Testing and Treatments Planned Possible anal surgery, will decide in February, with possible surgery in May. Treatment Goals Patient/Caregiver Goals Pt goal is -to strengthen the PF to decrease need of external manual assist for having a bowel movement, and to learn how to manage her PF after surgery. -PF strengthening to not leak when going to bathroom ( morning and at night after a drink). Personal Factors Other Personal Factors That May Effect History of breast CA, does Therapy/Recovery physical work needs at home due to spouse inability to help because of his bad back. PT-OP-C Subjective Start: 01/17/23 19:57 Freq: Status: Active Protocol: Document 03/31/23 12:35 LRN (Rec: 03/31/23 13:38 LRN [id number]) OP-PT Subjective Patient Comments Patient Comments Hasn't done ex's due to pain in R arm at Proximal shoulder. Initially stated no change, but later reported she can feel a PF contraction better, better awareness. PT-OP-I Pelvic Floor Start: 01/17/23 19:57 Freq: Status: Active Protocol: Document 01/27/23 13:17 LRN (Rec: 01/27/23 14:00 LRN [id number]) Pelvic Floor Assessment Urine Urinary Symptoms Urge Sensation Other Urinary Symptoms triggers: running water Leakage Size Small Leakage Cause Sneeze Leaks Per Day 1-2 Voiding Frequency 4-6x/day Nocturia 1-2x Pads Used In 24 Hours none Bowel Bowel Surgery No Bowel Symptoms Constipation Other Bowel Symptoms Sometimes constipation Bowel Movement Frequency 1/day Pelvic Clock Pelvic Clock 6-9 Atrophy Pelvic Clock 9-12 Atrophy Inter-Rectal Assessment Digital assessment: Weakness felt on R side of anal sphincter with contraction. Visible Bulge on R side of anal opening. Prolapse Urethrocele Grade 2 Rectocele Grade 2 Prolapse Comments Palpation of uterus with insertion ~6.5 cm per digital exam. Perineal Descent Resting Absent Bearing Absent Contraction Ability Voluntary Contraction Weak Manual Muscle Testing Left 3 Manual Muscle Testing Right 0 Manual Muscle Testing Anterior 2 Manual Muscle Testing Posterior 0 Muscle Endurance (Seconds) 3 Number of Quick Contractions In 10 3 Seconds Comments Pelvic Floor Comments Redness of external PF. Pt requires Gluteal and abdominal assist to perform a PF contraction. Weakness of 6-12 of the PF clock per vaginal digital assessment. EMG biofeedback assessment to be done at the next visit. PT-OP-J Posture/Palpation/Skin Start: 01/17/23 19:57 Freq: Status: Active Protocol: Document 01/27/23 13:17 LRN (Rec: 01/27/23 14:00 LRN [id number]) Posture Evaluation Position Standing L-Spine Posture Increased Lordosis Pelvis Posture Anteriorly Tilted Weight Distribution Balanced PT-OP-K Range of Motion Start: 01/17/23 19:57 Freq: Status: Active Protocol: Document 01/27/23 13:17 LRN (Rec: 01/27/23 14:00 LRN [id number]) Lumbar Spine Range of Motion Lumbar Spine Active Degrees Testing Position Standing Flexion 78 Extension 10 Rotation Left 10 Rotation Right 15 Lateral Flexion Left 15 Lateral Flexion Right 10 Comments Trunk AROM: Flexion is 78 deg ?s with 55 deg?s hip flexion, Trunk extension is 10 deg?s with 5 deg?s hip extension. Hip Goniometric Range of Motion Hip Right Passive Testing Position Supine Internal Rotation 30 External Rotation 65 Left Passive Testing Position Supine Internal Rotation 30 External Rotation 65 PT-OP-M Strength Start: 01/17/23 19:57 Freq: Status: Active Protocol: Document 01/27/23 13:17 LRN (Rec: 01/27/23 14:00 LRN [id number]) Trunk Strength Trunk Manual Muscle Testing Core Stabilization Loss of core rotational stability with hip flex/ext MMT Hip Strength Hip Manual Muscle Testing Right Extension (S1) 4+ Good+ Adduction 2 Poor Comments Strength is 5/5 except as indicated above. Left Flexion (L2) 4+ Good+ Adduction 2 Poor External Rotation 4 Good Comments Strength is 5/5 except as indicated above. PT-OP-Q Treatments Start: 01/17/23 19:57 Freq: Status: Active Protocol: Document 03/31/23 12:35 LRN (Rec: 03/31/23 13:38 LRN [id number]) Therapeutic Exercises Supine Exercises PF/Clamshell Supine Exercise Name PF ></L hip Clamshell, f/b L clamshell w/o PF contraction Side left Reps/Minutes PF ></L hip Clamshell, f/b L clamshell w/o PF contraction Comments Cuing for core/PF contract/ breath PF/Hip flex Supine Exercise Name PF></L hip flex f/b L hip flex only Side left Reps/Minutes 10x each Iliopsoas stretch Supine Exercise Name Alirio Test position - review needed Side bilateral Reps/Minutes 5' Comments Cued to not stretch into back discomfort, to flatten back. Lateral Hip stretch Supine Exercise Name Lateral Hip stretch - review needed Side bilateral Reps/Minutes 5' Comments Cued to rest heel on opposite distal thigh for stretch Piriformis Stretch Supine Exercise Name knee to opp shoulder stretch - reviewed Side bilateral Reps/Minutes 5' Comments Cued not to pull ankle w/knee to opp shoulder due to knee pain. Sidelying Exercises Hip AD/PF Sidelying Exercise Name Hip AD/PF f/b hip AD w/o PF Side bilateral Reps/Minutes 10x each Neuro Re-Education Treatment Other Activities PF awareness training Details Wedge, E-Stim PF awareness training and strengthening Reps/Duration 13' Comments 2' on Estim of 50 pps, 11 intensity, ON/OFF of 10/20 secs. 2' on Estim of 50 pps, 15 intensity, ON/OFF of 10/10 secs. Extra time for set up and determining intensity tolerance. Self-Care/Home Management Treatment Education Patient Education Home Exercise Program Other Education Discussed exer with pt row machine at home. Recommended PF tighten on exertion with pull back and not to lean forward on return. Activities Self-Care/Home Management Activities I/S in HEP: PF w/L Leg lift & w/L clamshell, & w/tianna hip AD . PT-OP-T Assessment and Plan Start: 01/17/23 19:57 Freq: Status: Active Protocol: Document 03/31/23 12:35 LRN (Rec: 03/31/23 13:38 LRN [id number]) Physical Therapy Assessment Goals Two Impairment Pt requires external manual assist for a bowel movement. Impairment Assist needed at transverse perineum or lateral to anal opening for BM. Short Term Goal (STG) Pt will be educated in how to manage her bowel movements and internal core pressures to minimize need for manual assist for bowel movements and worsening of her rectocele. 02/13/23: Pt education in management of internal core pressures to minimize need for manual assist for bowel movements and worsening of her rectocele through breathwork during coughing, sneezing, blowing of nose, laughing and with transfers. 02/27/23: Briefly discussed bowel massage. 03/16/23: Educated and training for bowel massage. STG Duration 03/13/23 (03/16/23: MET GOAL ) [employer] Goal (LTG) Strengthen the PF and modify diet to prevent need of external manual assist for having a bowel movement. 03/09/23: Progressed to PF/ saba hip AB/Bridge. 03/31/23: Assist with BM 50% of time. Leans back to assist with BM, and uses stools under feet. LTG Duration 04/27/23 progressed 03/09/23 One Impairment Pt lacks an independent self care HEP. Impairment Trigger is running water. Short Term Goal (STG) Pt educated in proper transfers to lessen core abdominal pressure. STG Duration 03/13/23 (02/13/23: MET GOAL ) [employer] Goal (LTG) Pt will be independent in a self care HEP for PF strengthening, hip mobility and core/hip strengthening exercises. 03/09/23: HEP: Pt doing TA, LE roll in/outs w/PF/Breathing . Added PF/hip AD-ball squeeze/bridge 03/23/23: HEP issued: Piriformis and lateral hip, and iliopsoas stretch. 03/31/23: I/S in HEP: PF w/L Leg lift & w/L clamshell, & w/ tianna hip AD. LTG Duration 04/27/23 progressed 03/31/23 Assessment Summary Assessment Improved awareness of PF contraction with EStim last session, pt able to better feel and identify a PF contraction. Pt did not want to try stimulating her [employer] PF due to possibly tight; therefore stretching of anus and PPF may help pt to eliminate better with BM. Noted proper breathing with transfers. Physical Therapy Plan Frequency and Duration Frequency of Treatment 1x/Week Plan of Care Start Date 01/27/23 Plan of Care End Date 04/27/23 Next Visit Focus/Plan Next Note Type Treatment Note Next Visit Plan Next: Sphincter and Posterior PF stretching to help with bowel elimination. EStim: Use for strengthening awareness/exer w/stim and for biofeedback. Review & issue HEP: lateral wall PF strengthening & I/S for PF w/L Leg lift & w/L clamshell, & w/tianna hip AD.. Progress anterior PF strengthening. Add: PF strengthening (R side & posterior>anterior)/core ( rotators)/hip strengthening ( tianna hip AD, R hip ext, L hip flex/ER) STM: improve abdominal soft tissue (bladder) mobility, Biofeedback for PF strengthening. POC: Therapeutic Exercises, Neuromuscular Reeducation, Kinetic Activities.
--- NOTE | 2023-04-13 13:54 | PT.OTN ---
Current Diagnoses Stiffness of unspecified hip, not elsewhere classified (04/13/23) Lordosis, unspecified, lumbosacral region (04/13/23) Muscle weakness (generalized) (04/13/23) Mixed incontinence (04/13/23) Incomplete uterovaginal prolapse (04/13/23) Physical Therapy Treatment Note PT-OP-A Visit Information Start: 01/17/23 19:57 Freq: Status: Active Protocol: Document 04/13/23 12:34 LRN (Rec: 04/13/23 13:53 LRN [id number]) Out-Patient Physical Therapy Visit Information Visit Information Visit Type Treatment Note Visit Start Time 12:34 Visit Stop Time 13:15 Total Visit Minutes 41 Visit Number 9 Evaluation Information Evaluation Date 01/27/23 Precautions Precautions 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 History of L bundle branch block. PT-OP-B Current Condition Start: 01/17/23 19:57 Freq: Status: Active Protocol: Document 01/27/23 13:17 LRN (Rec: 01/27/23 14:00 LRN [id number]) Current Condition History of Current Condition Onset Date 1 yr ago Current Complaints Must manually redirect feces externally to redirect feces to anus (80%). History of Current Condition Pt for mixed incontinence, and incomplete uterogenital prolapse. Pt reports referred to therapy for PF strengthening because of rectocele and weak bladder. Rectocele present for a long time (5 yrs), BUT learned what it was a year ago, because poop and pooper doesn't line up 80% of time. Pt reports bladder is getting weaker and she leaks as she heads to the bathroom door first in the morning and in evening after drinking. 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 Future Testing and Treatments Planned Possible anal surgery, will decide in February, with possible surgery in May. Treatment Goals Patient/Caregiver Goals Pt goal is -to strengthen the PF to decrease need of external manual assist for having a bowel movement, and to learn how to manage her PF after surgery. -PF strengthening to not leak when going to bathroom ( morning and at night after a drink). Personal Factors Other Personal Factors That May Effect History of breast CA, does Therapy/Recovery physical work needs at home due to spouse inability to help because of his bad back. PT-OP-C Subjective Start: 01/17/23 19:57 Freq: Status: Active Protocol: Document 04/13/23 12:34 LRN (Rec: 04/13/23 13:53 LRN [id number]) OP-PT Subjective Patient Comments Patient Comments Been on vacation for a week; therefore no change. Still having to push a little to get the stool out of the dip. Thinks she has to help a little less. PT-OP-I Pelvic Floor Start: 01/17/23 19:57 Freq: Status: Active Protocol: Document 01/27/23 13:17 LRN (Rec: 01/27/23 14:00 LRN [id number]) Pelvic Floor Assessment Urine Urinary Symptoms Urge Sensation Other Urinary Symptoms triggers: running water Leakage Size Small Leakage Cause Sneeze Leaks Per Day 1-2 Voiding Frequency 4-6x/day Nocturia 1-2x Pads Used In 24 Hours none Bowel Bowel Surgery No Bowel Symptoms Constipation Other Bowel Symptoms Sometimes constipation Bowel Movement Frequency 1/day Pelvic Clock Pelvic Clock 6-9 Atrophy Pelvic Clock 9-12 Atrophy Inter-Rectal Assessment Digital assessment: Weakness felt on R side of anal sphincter with contraction. Visible Bulge on R side of anal opening. Prolapse Urethrocele Grade 2 Rectocele Grade 2 Prolapse Comments Palpation of uterus with insertion ~6.5 cm per digital exam. Perineal Descent Resting Absent Bearing Absent Contraction Ability Voluntary Contraction Weak Manual Muscle Testing Left 3 Manual Muscle Testing Right 0 Manual Muscle Testing Anterior 2 Manual Muscle Testing Posterior 0 Muscle Endurance (Seconds) 3 Number of Quick Contractions In 10 3 Seconds Comments Pelvic Floor Comments Redness of external PF. Pt requires Gluteal and abdominal assist to perform a PF contraction. Weakness of 6-12 of the PF clock per vaginal digital assessment. EMG biofeedback assessment to be done at the next visit. PT-OP-J Posture/Palpation/Skin Start: 01/17/23 19:57 Freq: Status: Active Protocol: Document 01/27/23 13:17 LRN (Rec: 01/27/23 14:00 LRN [id number]) Posture Evaluation Position Standing L-Spine Posture Increased Lordosis Pelvis Posture Anteriorly Tilted Weight Distribution Balanced PT-OP-K Range of Motion Start: 01/17/23 19:57 Freq: Status: Active Protocol: Document 01/27/23 13:17 LRN (Rec: 01/27/23 14:00 LRN [id number]) Lumbar Spine Range of Motion Lumbar Spine Active Degrees Testing Position Standing Flexion 78 Extension 10 Rotation Left 10 Rotation Right 15 Lateral Flexion Left 15 Lateral Flexion Right 10 Comments Trunk AROM: Flexion is 78 deg ?s with 55 deg?s hip flexion, Trunk extension is 10 deg?s with 5 deg?s hip extension. Hip Goniometric Range of Motion Hip Right Passive Testing Position Supine Internal Rotation 30 External Rotation 65 Left Passive Testing Position Supine Internal Rotation 30 External Rotation 65 PT-OP-M Strength Start: 01/17/23 19:57 Freq: Status: Active Protocol: Document 01/27/23 13:17 LRN (Rec: 01/27/23 14:00 LRN [id number]) Trunk Strength Trunk Manual Muscle Testing Core Stabilization Loss of core rotational stability with hip flex/ext MMT Hip Strength Hip Manual Muscle Testing Right Extension (S1) 4+ Good+ Adduction 2 Poor Comments Strength is 5/5 except as indicated above. Left Flexion (L2) 4+ Good+ Adduction 2 Poor External Rotation 4 Good Comments Strength is 5/5 except as indicated above. PT-OP-Q Treatments Start: 01/17/23 19:57 Freq: Status: Active Protocol: Document 04/13/23 12:34 LRN (Rec: 04/13/23 13:53 LRN [id number]) Therapeutic Exercises Supine Exercises PF/Ball Squeeze/Bridge Supine Exercise Name PF/Bridge/ball squeeze/breath Equipment Used Lev 2 TB, Ball Reps/Minutes 4' Comments Cuing for lift with PF contraction/2 breaths. PF/Bridge Supine Exercise Name PF/Bridge/Hip AB Equipment Used Lev 2 TBand Reps/Minutes 4' Comments Cuing for lift with PF contraction & 2 breath hold. Prone Exercises PF/Leg ext Prone Exercise Name PF >< w/hip ext: L & Bilateral Reps/Minutes L le SH x 5- 2 sets; Dev legs: 10 SH x 10 Comments Cuing to exhale w/lift and hold thru at least 2 breaths. Sidelying Exercises Hip AD/PF Sidelying Exercise Name PF ></L hip Clamshell, f/b L clamshell w/o PF contraction Reps/Minutes PF ></L hip Clamshell, f/b L clamshell w/o PF contraction Comments Cuing for core/PF contract/ breath Manual Therapy Treatment Soft Tissue Mobilization Abdomen Body Location Abdomen in area of intestines and Uterus/Bladder Mobilization Type Sustained Pressure Transverse perineum Body Location Transverse perineum Mobilization Type Sustained Pressure Body Position Prone Comments No significant tightness noted . Posterior PF stretching Body Location Posterior PF around anus Mobilization Type Strumming Intensity/Depth Moderate Body Position Prone PT-OP-T Assessment and Plan Start: 01/17/23 19:57 Freq: Status: Active Protocol: Document 04/13/23 12:34 LRN (Rec: 04/13/23 13:53 LRN [id number]) Physical Therapy Assessment Goals Two Impairment Pt requires external manual assist for a bowel movement. Impairment Assist needed at transverse perineum or lateral to anal opening for BM. Short Term Goal (STG) Pt will be educated in how to manage her bowel movements and internal core pressures to minimize need for manual assist for bowel movements and worsening of her rectocele. 02/13/23: Pt education in management of internal core pressures to minimize need for manual assist for bowel movements and worsening of her rectocele through breathwork during coughing, sneezing, blowing of nose, laughing and with transfers. 02/27/23: Briefly discussed bowel massage. 03/16/23: Educated and training for bowel massage. STG Duration 03/13/23 (03/16/23: MET GOAL ) [employer] Goal (LTG) Strengthen the PF and modify diet to prevent need of external manual assist for having a bowel movement. 03/09/23: Progressed to PF/ saba hip AB/Bridge. 03/31/23: Assist with BM 50% of time. Leans back to assist with BM, and uses stools under feet. 04/13/23: Thinks she has to help a little less in getting stool out. Stool type is normal, type 3,4. LTG Duration 04/27/23 progressed 04/13/23 (pt has good stool type) One Impairment Pt lacks an independent self care HEP. Impairment Trigger is running water. Short Term Goal (STG) Pt educated in proper transfers to lessen core abdominal pressure. STG Duration 03/13/23 (02/13/23: MET GOAL ) [facility] Goal (LTG) Pt will be independent in a self care HEP for PF strengthening, hip mobility and core/hip strengthening exercises. 03/09/23: HEP: Pt doing TA, LE roll in/outs w/PF/Breathing . Added PF/hip AD-ball squeeze/bridge 03/23/23: HEP issued: Piriformis and lateral hip, and iliopsoas stretch. 03/31/23: I/S in HEP: PF w/L Leg lift & w/L clamshell, & w/ dev hip AD. LTG Duration 04/27/23 progressed 03/31/23 Assessment Summary Assessment At transverse perineum and anal sphincters, no significant tightness noted. Tight at L abdomen with R sideglide that normalized after manual mob. Physical Therapy Plan Frequency and Duration Frequency of Treatment 1x/Week Plan of Care Start Date 01/27/23 Plan of Care End Date 04/27/23 Next Visit Focus/Plan Next Note Type Treatment Note Next Visit Plan Next: ?EStim: Use for strengthening awareness/exer w /stim and for biofeedback. Review & issue HEP: lateral wall PF strengthening & I/S for PF w/L Cont: PF w/Leg lift & w/L clamshell, & w/dev hip AD. Progress anterior PF strengthening. Add: PF strengthening (R side & posterior>anterior)/core ( rotators)/hip strengthening ( dev hip AD, R hip ext, L hip flex/ER) STM: improve abdominal soft tissue (GI) mobility - 4 pt, Biofeedback for posterior PF strengthening. POC: Therapeutic Exercises, Neuromuscular Reeducation, Kinetic Activities.
--- NOTE | 2023-04-20 13:30 | PT.OTN ---
Addendum entered and electronically signed by Vee Juarez, PT 04/20/23 13:33: Late entry of pt's scoring of questionnaire: PUF - score 4 (initially was 4) Original Note: Current Diagnoses Stiffness of unspecified hip, not elsewhere classified (04/20/23) Lordosis, unspecified, lumbosacral region (04/20/23) Muscle weakness (generalized) (04/20/23) Mixed incontinence (04/20/23) Incomplete uterovaginal prolapse (04/20/23) Physical Therapy Treatment Note PT-OP-A Visit Information Start: 01/17/23 19:57 Freq: Status: Active Protocol: Document 04/20/23 12:35 LRN (Rec: 04/20/23 13:29 LRN [id number]) Out-Patient Physical Therapy Visit Information Visit Information Visit Type Treatment Note Visit Start Time 12:35 Visit Stop Time 13:13 Total Visit Minutes 38 Visit Number 10 Evaluation Information Evaluation Date 01/27/23 Precautions Precautions 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 History of L bundle branch block. PT-OP-B Current Condition Start: 01/17/23 19:57 Freq: Status: Active Protocol: Document 01/27/23 13:17 LRN (Rec: 01/27/23 14:00 LRN [id number]) Current Condition History of Current Condition Onset Date 1 yr ago Current Complaints Must manually redirect feces externally to redirect feces to anus (80%). History of Current Condition Pt for mixed incontinence, and incomplete uterogenital prolapse. Pt reports referred to therapy for PF strengthening because of rectocele and weak bladder. Rectocele present for a long time (5 yrs), BUT learned what it was a year ago, because poop and pooper doesn't line up 80% of time. Pt reports bladder is getting weaker and she leaks as she heads to the bathroom door first in the morning and in evening after drinking. 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 Future Testing and Treatments Planned Possible anal surgery, will decide in February, with possible surgery in May. Treatment Goals Patient/Caregiver Goals Pt goal is -to strengthen the PF to decrease need of external manual assist for having a bowel movement, and to learn how to manage her PF after surgery. -PF strengthening to not leak when going to bathroom ( morning and at night after a drink). Personal Factors Other Personal Factors That May Effect History of breast CA, does Therapy/Recovery physical work needs at home due to spouse inability to help because of his bad back. PT-OP-C Subjective Start: 01/17/23 19:57 Freq: Status: Active Protocol: Document 04/20/23 12:35 LRN (Rec: 04/20/23 13:29 LRN [id number]) OP-PT Subjective Patient Comments Patient Comments Has to help once in a while ( every few times) and sometimes only the last little bit. States she assists to have BM ~ 40% of the time. PT-OP-I Pelvic Floor Start: 01/17/23 19:57 Freq: Status: Active Protocol: Document 01/27/23 13:17 LRN (Rec: 01/27/23 14:00 LRN [id number]) Pelvic Floor Assessment Urine Urinary Symptoms Urge Sensation Other Urinary Symptoms triggers: running water Leakage Size Small Leakage Cause Sneeze Leaks Per Day 1-2 Voiding Frequency 4-6x/day Nocturia 1-2x Pads Used In 24 Hours none Bowel Bowel Surgery No Bowel Symptoms Constipation Other Bowel Symptoms Sometimes constipation Bowel Movement Frequency 1/day Pelvic Clock Pelvic Clock 6-9 Atrophy Pelvic Clock 9-12 Atrophy Inter-Rectal Assessment Digital assessment: Weakness felt on R side of anal sphincter with contraction. Visible Bulge on R side of anal opening. Prolapse Urethrocele Grade 2 Rectocele Grade 2 Prolapse Comments Palpation of uterus with insertion ~6.5 cm per digital exam. Perineal Descent Resting Absent Bearing Absent Contraction Ability Voluntary Contraction Weak Manual Muscle Testing Left 3 Manual Muscle Testing Right 0 Manual Muscle Testing Anterior 2 Manual Muscle Testing Posterior 0 Muscle Endurance (Seconds) 3 Number of Quick Contractions In 10 3 Seconds Comments Pelvic Floor Comments Redness of external PF. Pt requires Gluteal and abdominal assist to perform a PF contraction. Weakness of 6-12 of the PF clock per vaginal digital assessment. EMG biofeedback assessment to be done at the next visit. PT-OP-J Posture/Palpation/Skin Start: 01/17/23 19:57 Freq: Status: Active Protocol: Document 01/27/23 13:17 LRN (Rec: 01/27/23 14:00 LRN [id number]) Posture Evaluation Position Standing L-Spine Posture Increased Lordosis Pelvis Posture Anteriorly Tilted Weight Distribution Balanced PT-OP-K Range of Motion Start: 01/17/23 19:57 Freq: Status: Active Protocol: Document 01/27/23 13:17 LRN (Rec: 01/27/23 14:00 LRN [id number]) Lumbar Spine Range of Motion Lumbar Spine Active Degrees Testing Position Standing Flexion 78 Extension 10 Rotation Left 10 Rotation Right 15 Lateral Flexion Left 15 Lateral Flexion Right 10 Comments Trunk AROM: Flexion is 78 deg ?s with 55 deg?s hip flexion, Trunk extension is 10 deg?s with 5 deg?s hip extension. Hip Goniometric Range of Motion Hip Right Passive Testing Position Supine Internal Rotation 30 External Rotation 65 Left Passive Testing Position Supine Internal Rotation 30 External Rotation 65 PT-OP-M Strength Start: 01/17/23 19:57 Freq: Status: Active Protocol: Document 01/27/23 13:17 LRN (Rec: 01/27/23 14:00 LRN [id number]) Trunk Strength Trunk Manual Muscle Testing Core Stabilization Loss of core rotational stability with hip flex/ext MMT Hip Strength Hip Manual Muscle Testing Right Extension (S1) 4+ Good+ Adduction 2 Poor Comments Strength is 5/5 except as indicated above. Left Flexion (L2) 4+ Good+ Adduction 2 Poor External Rotation 4 Good Comments Strength is 5/5 except as indicated above. PT-OP-Q Treatments Start: 01/17/23 19:57 Freq: Status: Active Protocol: Document 04/20/23 12:35 LRN (Rec: 04/20/23 13:29 LRN [id number]) Therapeutic Exercises Prone Exercises PF/Leg ext Prone Exercise Name PF >< w/hip ext: L & Bilateral Reps/Minutes (L>R) 1 SH x 15 x 2 L, 15x 1 R . Comments Cuing to tighten PF & TA, exhale w/lift, not to rotate pelvis Sidelying Exercises Reverse Clamshell Sidelying Exercise Name PF contraction w/Reverse Clamshell Side bilateral Reps/Minutes 15x Comments Cuing to Tighten PF and TA, exhale with lift/inhale with lowering foot Clamshell Sidelying Exercise Name L>R, PF ></L hip Clamshell, f/ b L clamshell w/o PF contraction Side bilateral Reps/Minutes 15x 2 L, 15x R Comments Cuing to stabilize pelvis, breath and tighten TA Hip AD/PF Sidelying Exercise Name PF ></L hip Clamshell, f/b L clamshell w/o PF contraction Reps/Minutes PF ></L hip Clamshell, f/b L clamshell w/o PF contraction Comments Cuing for core/PF contract/ breath Self-Care/Home Management Treatment Education Patient Education Home Exercise Program Other Education Pt educated in doing pelvic brace/PF floor contraction with ADLs of coughing, transfers, lifting, and review not to bear down with ex's/ activities. Activities Self-Care/Home Management Activities Issued & reviewed HEP of PF with: Clamshell/Reverse Clamshell, hip AD and hip ext. Issued handout for Pelvic Brace with I/S to perform PF contraction w/pelvic brace for daily activities. PT-OP-T Assessment and Plan Start: 01/17/23 19:57 Freq: Status: Active Protocol: Document 04/20/23 12:35 LRN (Rec: 04/20/23 13:29 LRN [id number]) Physical Therapy Assessment Goals Four Impairment Substitution of abdominal and gluteal ms to perform a PF contraction. Short Term Goal (STG) Pt will be educated in proper posturing to promote strengthening of the anterior or posterior pelvic floor muscles. STG Duration 03/13/23 (02/03/23: MET GOAL ) Local Sales Manager Goal (LTG) Pt will be able to perform a PF contraction in the absence of abdominal/gluteal muscles. LTG Duration 04/27/23 (03/09/23: MET GOAL ) Three Impairment Urinary incontinence walking to bathroom with a strong urge or sneeze. Short Term Goal (STG) Pt will be educated in urge deference technique and will be able to maintain urinary continence when going to bathroom (morning and at night after a drink). 02/13/23: Pt educated in urge deference technique. 03/16/23: No urinary leakage first in morning and at night due to going to the bathroom on the first urge. STG Duration 03/13/23 (02/27/23: MET GOAL) Snf Goal (LTG) Improve PF strength with pt will be able to maintain urinary continence in the presence of a sneeze, cough or with laugh. 03/09/23: Pt reports for first time no leakage with sneeze, cough. 03/16/23: Pt reports no urinary leakage with cough, sneeze or laugh. LTG Duration 04/27/23 (03/16/23: MET GOAL ) Two Impairment Pt requires external manual assist for a bowel movement. Impairment Assist needed at transverse perineum or lateral to anal opening for BM. Short Term Goal (STG) Pt will be educated in how to manage her bowel movements and internal core pressures to minimize need for manual assist for bowel movements and worsening of her rectocele. 02/13/23: Pt education in management of internal core pressures to minimize need for manual assist for bowel movements and worsening of her rectocele through breathwork during coughing, sneezing, blowing of nose, laughing and with transfers. 02/27/23: Briefly discussed bowel massage. 03/16/23: Educated and training for bowel massage. STG Duration 03/13/23 (03/16/23: MET GOAL ) Local Sales Manager Goal (LTG) Strengthen the PF and modify diet to prevent need of external manual assist for having a bowel movement. 03/09/23: Progressed to PF/ saba hip AB/Bridge. 03/31/23: Assist with BM 50% of time. Leans back to assist with BM, and uses stools under feet. 04/13/23: Thinks she has to help a little less in getting stool out. Stool type is normal, type 3,4. LTG Duration 04/27/23 progressed 04/13/23 (pt has good stool type) One Impairment Pt lacks an independent self care HEP. Impairment Trigger is running water. Short Term Goal (STG) Pt educated in proper transfers to lessen core abdominal pressure. STG Duration 03/13/23 (02/13/23: MET GOAL ) Local Sales Manager Goal (LTG) Pt will be independent in a self care HEP for PF strengthening, hip mobility and core/hip strengthening exercises. 03/09/23: HEP: Pt doing TA, LE roll in/outs w/PF/Breathing . Added PF/hip AD-ball squeeze/bridge 03/23/23: HEP issued: Piriformis and lateral hip, and iliopsoas stretch. 03/31/23: I/S in HEP: PF w/L Leg lift & w/L clamshell, & w/ tianna hip AD. LTG Duration 04/27/23 progressed 03/31/23 Assessment Summary Assessment Pt choosing not to do EStim rectally today. The pt has decreased the need to assist with having a BM to fully void from 80% to 40% of the time. Ex's issued for HEP that she appears to have a good understanding after review and cuing. I encouraged the pt to return to referring physician to discuss options of care now that she has had some improvement with BM voiding. Pt has met her goals and feels ready to be discharged to her HEP. Physical Therapy Plan Frequency and Duration Frequency of Treatment 1x/Week Plan of Care Start Date 01/27/23 Plan of Care End Date 04/27/23
== END 2023-04-21 09:37 | disposition home or self-care (01) ==
LOC: PHYS 12:30
PROVIDERS: Family Provider Family Medicine; PCP Family Medicine; Referring Provider Obstetrics & Gynecology; Visit Provider Obstetrics & Gynecology
DX: N81.2 Incomplete uterovaginal prolapse (principal); N39.46 Mixed incontinence; M62.81 Muscle weakness (generalized); M25.659 Stiffness of unspecified hip, not elsewhere classified; M40.57 Lordosis, unspecified, lumbosacral region
CPT/HCPCS: 97110; 97112; 97140; 97162; 97535

== ENCOUNTER → 2023-05-10 14:10 | Outpatient (CLI) | payer OTHER, SELFPAY ==
--- NOTE | 2023-05-10 14:11 | DI.RAD.S_ITS ---
PROCEDURE: XR SHOULDER RT MIN 2V INDICATIONS: r shoulder pain x 2 mo cesar anterior deltoid TECHNIQUE: 3 views of the shoulder were acquired. COMPARISON: [facility], CR, XR SHOULDER LT MIN 2V, 09/04/2019, 12:41. FINDINGS: Bones: No fractures or dislocations. No suspicious bony lesions. Visualized ribs appear intact. Soft tissues: No suspicious soft tissue calcifications. Right chest wall surgical clips. IMPRESSION: No acute osseous abnormality. If pain persists with conservative management, consider repeat x-ray in 10-14 days or cross-sectional imaging. Dictated by: Ebenezer Lugo M.D. on 05/10/2023 at 14:54 Approved by: Ebenezer Lugo M.D. on 05/10/2023 at 14:55
== END ==
PROVIDERS: Family Provider Family Medicine; PCP Family Medicine; Referring Provider Physician Assistant; Visit Provider Physician Assistant
DX: M25.511 Pain in right shoulder (principal)
CPT/HCPCS: 73030

== ENCOUNTER → 2023-06-07 11:42 | Outpatient (CLI) | payer OTHER, SELFPAY ==
--- NOTE | 2023-06-07 | DI.MG.S_ITS ---
BILATERAL DIGITAL SCREENING MAMMOGRAM 3D/2D WITH CAD POST LUMPECTOMY: 06/07/2023 CLINICAL: Routine screening. Personal history of right breast cancer. Family History. Comparison is made to exams dated: 05/26/2022 mammogram, 05/24/2021 mammogram, 04/25/2020 mammogram, 04/24/2019 mammogram, 03/01/2018 mammogram, and 01/27/2017 mammogram - [facility]. Both breasts are heterogeneously dense, which may obscure small masses (category c / 51-75% glandular tissue). Current study was also evaluated with a Computer Aided Detection (CAD) system. There are benign post operative findings and biopsy clip in the right breast. No significant masses, calcifications, or other findings are seen in either breast. There has been no significant interval change. IMPRESSION: BENIGN There is no mammographic evidence of malignancy. A 1 year screening mammogram is recommended. This exam was interpreted at Station ID: [id number]. NOTE: For mammograms, a report in lay terms will be sent to the patient. Approximately 15% of breast malignancies will not be visualized mammographically. In the management of a palpable breast mass, a negative mammogram must not discourage biopsy of a clinically suspicious lesion. Electronically Signed By: Mikie nolasco/angella:06/07/2023 13:49:59 letter sent: Normal Exam ACR BI-RADS Category 2: Benign Finding(s) 3342F
== END ==
PROVIDERS: Family Provider Family Medicine; PCP Family Medicine; Referring Provider Family Medicine; Visit Provider Family Medicine
DX: Z12.31 Encounter for screening mammogram for malignant neoplasm of breast (principal); Z85.3 Personal history of malignant neoplasm of breast; Z80.3 Family history of malignant neoplasm of breast
CPT/HCPCS: 77063; 77067

== ENCOUNTER → 2023-08-11 11:11 | Outpatient (CLI) | payer OTHER, SELFPAY ==
[2023-08-11 12:56] LABS: Hematocrit 37.5 % (36-46); Hemoglobin 12.6 g/dL (12.0-16.0); Mean Corpuscular HGB Conc 33.7 % (30-36); Mean Corpuscular Hemoglobin 30.4 PG (26-34); Mean Corpuscular Volume 90.1 fL (80-100); Platelet Count 158 X10^3/uL (150-400); Red Blood Cell Count 4.16 X10^6/uL (4.0-5.2); Red Cell Distribution Width 13.5 % (11.6-14.8); White Blood Cell Count 3.8 X10^3/uL (4.5-11.0)
[2023-08-11 13:29] LABS: Alanine Aminotransferase 29 IU/L (<35); Albumin 3.8 g/dL (3.5-5.0); Albumin Globulin Ratio 1.4 (1.0-2.8); Alkaline Phosphatase 87 U/L (38-126); Aspartate Aminotransferase 27 IU/L (14-36); BUN Creatinine Ratio 16.7 (6-22); Bilirubin Total 0.7 mg/dL (0.2-1.3); Blood Urea Nitrogen 15 mg/dL (7-17); Calcium 9.3 mg/dL (8.4-10.2); Carbon Dioxide 30 mmol/L (22-32); Chloride 101 mmol/L (98-107); Cholesterol 140 mg/dL (140-199); Estimated Glomerular Filt Rate > 60 mL/min (>60); Globulin 2.7 g/dL (1.7-4.1); Glucose 97 mg/dL (80-110); HDL Cholesterol 60 mg/dL (40-60); HEMOLYSIS < 15 (0-50); LDL Cholesterol Calculated 67 mg/dL (<100); Potassium 4.1 mmol/L (3.4-5.1); Sodium 137 mmol/L (137-145); Total Protein 6.5 g/dL (6.3-8.2); Triglycerides 67 mg/dL (35-150)
== END ==
PROVIDERS: Family Provider Family Medicine; PCP Family Medicine; Referring Provider Family Medicine; Visit Provider Family Medicine
DX: E78.2 Mixed hyperlipidemia (principal); D05.11 Intraductal carcinoma in situ of right breast; I25.10 Atherosclerotic heart disease of native coronary artery without angina pectoris; Z79.899 Other long term (current) drug therapy
CPT/HCPCS: 36415; 80053; 80061; 84443; 85027; 86300

== ENCOUNTER 2024-01-08 06:36 | Day surgery (SDC) | payer OTHER, SELFPAY ==
[2024-01-04 07:58] VITALS: BMI 40.8
[2024-01-08] VITALS (15 sets, daily range): BP systolic 115–160; BP diastolic 41–85; PULSE 57–94; RESP 10–18; TEMP 36.1–36.6; O2SAT 92–98; BMI 40.3
--- NOTE | 2024-01-08 | PATH_ITS ---
[facility] Accession Number: [id number] No. of containers..01 Tissue . 01 Material submitted: . uterus - UTERUS,CERVIX,BILATERAL FALLOPIAN TUBES AND OVARIES . 01 Diagnosis: UTERUS, CERVIX, BILATERAL FALLOPIAN TUBES AND OVARIES; HYSTERECTOMY AND BILATERAL SALPINGO-OOPHORECTOMY: Uterine weight: 85 grams. Uterine cervix: Mild chronic cervicitis and reactive changes; negative for dysplasia and malignancy. Endometrium: Benign endometrial polyp, 1.1 cm in diameter. Inactive endometrium with areas of cystic atrophy. Negative for endometrioid intraepithelial neoplasia and malignancy. Benign bilateral fallopian tubes and paratubal cysts. Benign, left and right ovary. Negative for atypia and malignancy. [facility] 01/12/2024 1545 Local . 01 Electronically signed: . Xiao Barahona MD, Pathologist NPI- [id number] . 01 Gross description: . Received in formalin with two identifiers and uterus, cervix, bilateral fallopian tubes, and ovaries, is an intact uterus (85 grams, 8.7 cm superior to inferior, 6.0 cm medial to lateral, 3.1 cm anterior to posterior), with attached cervix (4.2 x 3.4 cm), detached left fallopian tube (5.9 x 0.4 cm), detached left ovary (4.6 x 0.7 x 0.5 cm), attached right fallopian tube (4.8 x 0.4 cm), attached right ovary (2 grams, 3.2 x 0.8 x 0.5 cm). . The ectocervix is martinez and finely granular with a patulous os 0.8 cm in diameter. The anterior margin is inked blue and the posterior margin is inked black. The serosa is martinez and smooth with no evidence of hemorrhage or adhesions identified. . The endocervical canal has martinez herringbone mucosa and measures 2.9 cm in length. The endometrial cavity measures 3.1 cm from cornu to cornu, 3.9 cm in length, with red velvety endometrium that averages 0.1 cm thick with a martinez soft polypoid nodule 1.1 x 0.5 x 0.3 cm. No additional lesions are identified. The myometrium is martinez and moderately trabecular measuring up to 1.8 cm in maximum thickness with no lesions identified. . The left fallopian tube has martinez smooth serosa with multiple cystic structures measuring up to 0.2 cm in greatest dimension filled with cloudy serous fluid. The lumen is stellate and unremarkable. The left ovary has a martinez smooth external surface and the cut surface is physiologic and unremarkable with no lesions identified. . The right fallopian tube has martinez smooth serosa with cystic structures measuring up to 0.7 cm in greatest dimension filled with cloudy serous fluid. The lumen is stellate and unremarkable. The right ovary has a martinez cerebriform external surface and the cut surface is physiologic and unremarkable with no lesions identified. . Mapping Technician sections are submitted as follows: A1: Anterior cervix. A2: Posterior cervix. A3: Anterior full thickness section with mucosal polyp. A4: Posterior full thickness section. A5: Left fallopian tube to include one-half of bisected fimbriae and cross-sections. A6: Left ovary. A7: Right fallopian tube to include one-half of bisected fimbriae and cross-sections. A8: Right ovary. ([id number]) /JUNIOR 01/12/2024 1545 [facility] . 01 Pathologist provided ICD-10: N81.0, N81.4 . 01 CPT . 628788 Specimen Comment: A courtesy copy of this report has been sent to [phone] Performed at: [address], [place], [place] [id number] MD Praneeth Menjivar MD Phone: [phone]
--- NOTE | 2024-01-08 07:45 | PM.PREOP ---
Pre-operative Note Interval Note History & Physical reviewed/Exam performed by Physician: Yes Changes to H&P: No H&P completed within 30 days and has changed as indicated here:: 12/29/23
[2024-01-08] MEDS: CEFAZOLIN 2 GM/100 ML PREMIX 100 ML IV (07:50)
[2024-01-08] MEDS: ACETAMINOPHEN IV 1,000 MG/100 ML VIAL 400 MG IV (08:00)
--- NOTE | 2024-01-08 08:27 | SUR.OPER ---
Lithotomy on padded OR bed. Oriska Pad Positioner under torso. Head on pillow, arms padded and tucked at sides. Legs secured in padded yellow fins stirrups.
[2024-01-08] MEDS: BUPIVACAINE 0.25% (PF) 30 ML, EPINEPHrine 0.15 MG INJ (08:36)
[2024-01-08] MEDS: LACTATED RINGERS 1,000 ML 42 ML IV ×2 (09:10→12:12)
--- NOTE | 2024-01-08 11:13 | P.OP_ITS ---
Operative Date/Time/Diagnoses Date of procedure: 01/08/24 Time of procedure: 11:13 Pre-op diagnosis: Uterine prolapse Cystocele Rectocele Stress urinary incontinence Enlarged genital hiatus Post-op diagnosis: same Procedure & Clinicians Procedure: Procedures Operation Date: 01/08/24 07:45 Actual Procedure Side Surgeon p Laparoscopic Assisted Vaginal Hysterectomy with bilateral salpingo- oophorectomy MD kiarra Live Anterior/Posterior Repair MD kiarra Live Tensionless Vaginal Tape with cystoscopy Jazmine Aguilar MD Indications: 68-year-old with uterine prolapse, cystocele, rectocele, and stress urinary incontinence Surgeon: Jazmine Aguilar Administrative Staff Supervisor: Sabra Timmons Anesthesia Type: General and Local Operative Notes Findings: Seven week size uterus Streak ovary on the left Tube stuck to the left pelvic sidewall Normal right tube and ovary Normal appendix Normal liver and gallbladder Short vagina Enlarged genital hiatus Closure Type: primary Specimen(s): left tube & ovary, right tube & ovary and uterus Estimated blood loss (mL): 200 Blood products transfused: none Procedure in detail: The patient was taken to the operating room where she was placed in the dorsal supine position. After adequate general endotracheal anesthesia was achieved, she was placed in the dorsal lithotomy position, and prepped and draped in the usual sterile fashion. A time-out was performed. A bivalve speculum was placed into the vagina and the anterior lip of the cervix was grasped with a single- tooth tenaculum. The cervical os was sequentially dilated until the Zumi uterine manipulator could pass easily into the endometrial cavity. The single- tooth tenaculum was removed from the anterior lip of the cervix. The bivalve speculum was removed from the vagina. Attention was then turned to the abdomen where 6 cc of 0.25% Marcaine with epinephrine were injected in the umbilical fold. A 5 mm incision was made. The Veress needle was placed into the peritoneal cavity, and its placement confirmed by aspiration and drop test. The abdominal cavity was insufflated with 4.2 L of CO2. The Veress needle was removed, and a long 5 mm trocar was placed without difficulty. Two other 5 mm incisions were made 4 cm lateral to the midline with care to avoid the vessels with transillumination. These incisions were made after 6 cc of 0.25% Marcaine with epinephrine were injected. The patient was placed into Trendelenburg. The right tube and ovary were grasped with an atraumatic grasper and using the power seal, the infundibulopelvic ligament was cauterized and cut. This was continued along the mesosalpinx, and broad ligament. All the way down to the level of the uterine arteries. On the left side the left ovary was a streak and the tube was attached to the pelvic sidewall. This was dissected off with the endo Sylvester. The tube and ovary were then grasped with an atraumatic grasper. Using the power seal, the infundibulopelvic ligament was cauterized and cut. The mesosalpinx, broad ligament, and uterine arteries were also cauterized. The CO2 was allowed to escape and the instruments were removed from the abdomen. Attention was then turned to the vagina where the Zumi uterine manipulator was removed from the uterus. A weighted speculum was placed. The cervix was grasped with a 4 tooth tenaculum. 10 cc of 0.25% Marcaine with epinephrine were injected circumferentially around the cervix submucosally. The cervix was then scored with a #10 blade. The bladder and rectum were dissected off of the lower uterine segment and cervix using an open moist Ray-Christian and Metzenbaum scissors. A Willie was placed into the anterior cul-de-sac. The short weighted speculum was removed and the long weighted speculum was placed into the posterior cul-de-sac. The uterosacral cardinal ligament complexes were grasped, transected, and suture ligated with 0 Vicryl. These were tagged with hemostats. The uterine arteries were grasped, transected, and suture ligated with 0 Vicryl. Hemostasis was achieved. The uterus, tubes, and ovaries were passed off for pathology. The vaginal cuff was closed with a series of [id number] sutures. Gloves were changed and attention was then turned to the abdomen where the abdomen was re-insufflated with carbon dioxide gas. The pelvis was copiously irrigated with warm normal saline. There was a small amount of oozing from the right side. An attempt was made with cautery. Then Perclot was placed over the cuff with care to include the right side that was oozing. Hemostasis was achieved. Attention was then turned to the vagina. All the tagged sutures were cut. At this point the vagina was found to be very short and no room for anterior or posterior repair. The Claros catheter was in the bladder. 100 cc of sterile saline were injected behind the pubic symphysis into the space of Retzius. 4 cc of 0.25% Marcaine with epinephrine were injected submucosally about 1-1/2 cm from the urethral meatus. A 1-1/2 cm incision was made and dissected out laterally with the Metzenbaum scissors. Using 10 cc of 0.25% Marcaine on a 10 cc syringe with a spinal needle, the pass of the TVT was injected with local. Using the Hegar dilators the 3 through 6 the space was dissected out. The TVT was loaded. Starting on the patient's right side with the bladder neck retracted away from the patient's right side by placing the rigid catheter into the Claros and along the patient's right thigh, the TVT introducer was directed towards the patient's shoulder and then up behind the pubic symphysis and came out proximally 2 cm from the midline. This was repeated on the patient's left side with the bladder neck retracted away from the patient's left side by placing the rigid catheter along the patient's left thigh. Rigid catheter was removed. The bladder was filled with 500 cc of sterile water. Cystoscope was performed and there was found to be the introducer nicking the left side of the bladder. This was pulled back after the bladder was drained and then re directed up behind the pubic symphysis. The bladder was then again filled with 500 cc of sterile water and a cystoscope revealed no introducer in the bladder. The TVT was hooked to the introducers and the TVT was pulled up with care not to over tighten by placing a pair of scissors between the urethra and the tape. The tape was removed from the introducers and cut. The plastic sheaths were grasped with hemostats and removed with care to not over tighten. The TVT was cut below the skin line. Vaginally there was small amount of oozing and pressure was held for 5 minutes. The mucosa was closed with 3-0 Vicryl with a running interlocking suture. Hemostasis was achieved. Allis clamps were placed at the mucocutaneous junction at the introitus. 10 cc of 0.25% Marcaine with epinephrine were injected in the proposed perineorrhaphy space. An incision was made between the 2 Allis clamps and a triangular piece of skin and underlying subcutaneous tissue was removed. Starting at the vaginal mucosa with 2-0 Vicryl the mucosa was reapproximated. The suture was then passed down onto the perineum and the perineum was closed with deep sutures running. Superficially then 3 sutures were placed to reapproximate. The skin was closed with 3-0 chromic in a subcuticular fashion. Hemostasis was achieved. The Claros was draining slightly bloody urine. Sponge, lap, and instrument counts were correct x2. The patient tolerated the procedure well, and was taken to PACU in stable condition. Complications: none Post-operative Condition: stable Disposition: PACU Plan for aftercare: To acute care after recovery
[2024-01-08] MEDS: HYDROMORPHONE 1 MG INJ IV ×2 (11:28→11:44)
[2024-01-08] MEDS: OXYCODONE IR 5 MG TABLET PO ×3 (11:55→19:00)
--- NOTE | 2024-01-08 12:19 | SUR.PHASEI ---
pt transferred to room 203 by Courtney Eng with 1 belongings bag and CPAP bag.
[2024-01-08] MEDS: ACETAMINOPHEN 325 MG TABLET 650 MG PO ×2 (12:56→19:00)
[2024-01-08] MEDS: LACTATED RINGERS 1,000 ML 50 ML IV (12:59)
[2024-01-08] MEDS: KETOROLAC 30 MG/ML VIAL IV (13:01)
[2024-01-08] MEDS: KETOROLAC 30 MG/ML VIAL 15 MG IV (18:59)
[2024-01-08] MEDS: DOCUSATE 100 MG CAPSULE 200 MG PO (20:17)
[2024-01-09 00:13] VITALS: BP 137/54; PULSE 66; RESP 18; TEMP 36.2; O2SAT 94
[2024-01-09] MEDS: ACETAMINOPHEN 325 MG TABLET 650 MG PO ×2 (00:40→06:03)
[2024-01-09] MEDS: OXYCODONE IR 5 MG TABLET PO ×2 (00:41→06:03)
[2024-01-09] MEDS: KETOROLAC 30 MG/ML VIAL 15 MG IV ×2 (00:42→06:47)
[2024-01-09 05:11] VITALS: BP 113/53; PULSE 75; RESP 18; TEMP 36.6; O2SAT 96
[2024-01-09 05:52] LABS: Add Manual Diff / Slide Review NO; Basophils Absolute Auto 0 /uL (0-100); Basophils Percent Auto 0.5 % (0-2); Eosinophils Absolute Auto 0 /uL (0-450); Hematocrit 34.1 % (36-46); Hemoglobin 11.3 g/dL (12.0-16.0); Lymphocytes Absolute Auto 500 /uL (1100-4500); Mean Corpuscular HGB Conc 33.2 % (30-36); Mean Corpuscular Hemoglobin 30.8 PG (26-34); Mean Corpuscular Volume 92.8 fL (80-100); Monocytes Absolute Auto 400 /uL (0-900); Monocytes Percent Auto 4.6 % (3-14); Neutrophils Absolute Auto 8100 /uL (1500-7000); Neutrophils Percent Auto 89.9 % (50-75); Platelet Count 138 X10^3/uL (150-400); Red Blood Cell Count 3.67 X10^6/uL (4.0-5.2); Red Cell Distribution Width 13.4 % (11.6-14.8)
[2024-01-09 06:04] LABS: BUN Creatinine Ratio 15.9 (6-22); Blood Urea Nitrogen 11 mg/dL (7-17); Calcium 8.2 mg/dL (8.4-10.2); Carbon Dioxide 27 mmol/L (22-32); Chloride 107 mmol/L (98-107); Estimated Glomerular Filt Rate > 60 mL/min (>60); Glucose 124 mg/dL (80-110); HEMOLYSIS < 15 (0-50); Potassium 4.6 mmol/L (3.4-5.1); Sodium 136 mmol/L (137-145)
[2024-01-09 08:00] VITALS: BP 132/60; PULSE 61; RESP 18; TEMP 36.4; O2SAT 93
[2024-01-09] MEDS: DOXYCYCLINE HYCLATE 100 MG TABLET 50 MG PO (08:31)
[2024-01-09 08:32] VITALS: BP 132/60
[2024-01-09] MEDS: LOSARTAN 50 MG TABLET PO (08:32)
[2024-01-09] MEDS: DOCUSATE 100 MG CAPSULE 200 MG PO (08:32)
[2024-01-09] MEDS: ATORVASTATIN 20 MG TABLET 40 MG PO (08:32)
[2024-01-09] MEDS: CITALOPRAM 10 MG TABLET 20 MG PO (08:37)
--- NOTE | 2024-01-09 11:03 | PC.NURSE ---
Pt is ready for discharge home with Spouse. IV has been removed. Went over d/c instructions with Pt and Spouse-discussed d/c meds, time of last dose, reviewed stroke education, s/s of infection, no lifting greater than 8 pounds, nelson care and how to change to leg bag, no driving while on narcotics, do not exceed 3000mg of Acetaminophen in 24 hours, taking note of urine clarity and output and follow up. Pt denied further questions and will be taken out via w/c by CIGARETTE CATCHER to POV with Spouse and all belongings.
--- NOTE | 2024-01-09 11:35 | CM.DANOTE ---
Initial DCP Assessment Visit Note Reviewed EMR and team rounds for status updates. PAPER CLEANER did not meet with pt f/f due to her discharging prior to being able to meet with her. Pt lives independently in her own home with her spouse here in [place], her was able to transport her home at time of d/c. Payor: [facility] Adv Attending: Dr. Aguilar Pt is a 68 year-old F post-op day 1 following her laparoscopic vaginal hysterectomy. She has a hx of symptomatic uterine prolapse with stress urinary incontinence. Pt did well postoperatively with no concerns during her recovery. No further needs identified for PAPER CLEANER at this time. Discharge Planning/Care Management CM Discharge Assessment Start: 01/09/24 11:31 Freq: Status: Active Protocol: Document 01/09/24 11:31 DPL (Rec: 01/09/24 11:34 DPL [id number]) Discharge Planning Assessment Assigned Senior Storage Engineer RUDOLPH Bean Advance Directives? No History Provided By Medical Record Has Patient been admitted in last 30 No days? Prior Living Arrangements House Household Members spouse Type of transporation used prior to Drives own vehicle admit Independent with ADL's Yes Is patient alert and oriented? Yes Comment N/A Caregiver for Another No Comment N/A Comment No home d/c needs identified during this stay. Barriers to Discharge No Discharge Plan Home Transportation Arrangement Spouse Referrals Initiated None needed Review Status In Process Please Provide Date Initial DC 01/09/24 Assessment Was Performed Pre-Anesthesia Assessment Start: 01/04/24 07:58 Freq: Status: Active Protocol: Document 01/04/24 07:58 CAB (Rec: 01/04/24 08:10 CAB [id number]) Pre-Anesthesia Assessment Patient Information Reviewed Via Chart Review Primary Care Provider Paresh Radford Seen Specialist in Last 12 Months Yes Specialist Seen Environmental Journalist,Engine Dynamometer Tester Primary Language Yoruba Mental [facility] Unit Lead Psychologist Required No Height 162.56 cm Weight 107.955 kg Body Mass Index (BMI) 40.8 Barriers to Learning None Hx Anesthesia Reactions Yes: ponv after 1st colonoscopy Hx Family Anesthesia Reaction No Hx Malignant Hyperthermia No Hx Blood Transfusion Reaction No Anesthesia Review Requested No [employer] Rep No alcohol intake current Smoking Status Never smoker Substance Use Type does not use Pain Present Pain Reported Patient is completely paralyzed or No completely immobile Mental Status Oriented to own ability Is patient on oxygen? No Hx Sleep Apnea Yes: CPAP CPAP/BIPAP use not prescribed Currently Taking a Beta Otis No Anti-Coagulant Therapy No Has a Environmental Journalist Yes: Pre-op 12/06/[address] Jimenez @ [facility] Hx Pacemaker/ICD No Pacemaker Rep Required? No Cardiac Clearance Received Yes Comment Cardiac records scanned and in surgery folder Urinary Catheter Present No Hx Urinary Self Catheterization No Diabetes No HgbA1C 5.7 Date 08/12/22 Patient No Lactating No Presence of External or Internal Medical Yes: 2 partial knee Devices replacements Received a COVID vaccine? Yes: with booster Marital Status Lives With spouse Patient Discharge Plan Description Return Home Advance Directives? No
--- NOTE | 2024-01-17 21:49 | P.DS_ITS ---
History of Present Illness History of Present Illness Date Patient Seen: 01/09/24 Time Patient Seen: 11:30 Chief complaint: Laparoscopic Assisted Vag Hysterectomy/Colporrhaph Narrative: Patient is a 68-year-old 2 para 1 who is postop day # 1 status post LAVH/BSO/anterior-posterior repair/TVT with cystoscopy. Her procedure was complicated by an inadvertent cystotomy. Her urine is clear. Claros catheter is in place. Her pain is well controlled. Minimal amount of vaginal bleeding. Discharge Providers Provider Discharge Date: 01/09/24 Primary care physician: Paresh Radford MD Discharge provider: Jazmine Aguilar MD Summary Hospital Course Discharge Diagnosis: Symptomatic uterine prolapse, cystocele, rectocele Stress urinary incontinence Inadvertent cystotomy Hospital Course: Patient is a 68-year-old 2 para 1 who presented on January 08, 2024 for a scheduled LAVH/BSO/anterior-posterior repair/TVT with cystoscopy. She underwent this procedure with a complication of an inadvertent cystotomy. Her Claros catheter was kept in place. Vaginal packing was removed on postop day #1. Urine was clear. Her pain was well controlled. No nausea or vomiting. She was tolerating a diet. She was ambulating independently. She was discharged home on postop day # 1 with a Claros catheter in place and leg bag teaching. She was placed on antibiotics. She was to return in 1 week for catheter removal and bladder trial. Status at Discharge Cognitive/behavioral status at discharge: oriented Functional status at discharge: independent ambulation Overall status at discharge: patient is progressing back to baseline Time Spent with Patient Time spent: Less than 30 minutes Exam Vital Signs (past 8 hours): Oxygen Delivery Method Room Air,Nasal Cannula Oxygen Flow Rate 0 Narrative Exam Narrative: Generally: Patient is sitting up in bed, no acute distress Lungs: Clear to auscultation bilaterally Cardiovascular: Regular rate and rhythm Abdomen: Soft and flat. Incisions: Clean dry and intact with Allevyn dressings, or surgical glue. Perineum: Small amount of old blood Extremities: Negative Homans Objective Labs 01/09/24 05:30 01/09/24 05:30 [facility] Medical History (Updated 01/08/24 @ 07:36 by Jazmine Aguilar MD) LBBB (left bundle branch block) Sleep apnea CAD (coronary artery disease) Abnormal myocardial perfusion study Knee problem (~2003) Acne (~1985) Measles Chicken pox BRCA negative (~2004) Breast cancer (~2004) Surgical History (Updated 01/04/24 @ 08:10 by Maribeth Thayer RN) Status post left unicompartmental knee replacement Status post right unicompartmental knee replacement Anesthesia Status post wrist surgery (~2005) History of breast surgery (~2004) Family History Father Cancer Social History household members: spouse Smoking Status: Never smoker alcohol intake: current Discharge Assessment & Plan Assessment and Plan Assessment: Postop day # 1 status post LAVH/BSO/anterior-posterior repair/TVT with cystoscopy Inadvertent cystotomy Plan of Treatment: Discharge to home Follow-up in 1 week for catheter removal Leg bag teaching Antibiotics until catheter is removed Discharge Plan Discharge Plan Patient Disposition: Home Provider Discharge Comment: Call with fever, chills, redness or drainage around the incisions, or bleeding vaginally more than spotting to light Ibuprofen 400 mg every 6 hours as needed Tylenol 650 mg every 6 hours as needed Discharge orders & Medications Discharge Orders: Discharge (Order); Ordered 01/09/24 Ordered By: Jazmine Aguilar Prescriptions: New oxycodone 5 mg tablet 5 mg PO Q4H PRN (Reason: pain) Qty: 14 0RF nitrofurantoin macrocrystal [Macrodantin] 100 mg capsule 100 mg PO BID Qty: 14 0RF Rx Instructions: must administer with a meal/food Continued estradiol 0.01 % (0.1 mg/gram) cream See Rx Instructions .ROUTE .COMPLEX Qty: 42.5 3RF Rx Instructions: Insert 0.5gm intravaginal and a small amount to the outside daily x30 days then 2x weekly atorvastatin [Lipitor] 40 mg tablet 40 mg PO DAILY Qty: 90 3RF citalopram 20 mg tablet 20 mg PO QDAY Qty: 90 3RF doxycycline hyclate 50 mg tablet 50 mg PO DAILY Qty: 90 3RF losartan 50 mg tablet 50 mg PO DAILY Qty: 90 3RF trazodone 100 mg tablet 100 mg PO HS Qty: 90 3RF sulfacetamide sodium-sulfur 10-5 % (w/w) cleanser 1 applic topical DAILY Qty: 170 1RF hydrocodone-acetaminophen 5-325 mg tablet 1 - 2 tab PO Q6HP PRN (Reason: pain) Qty: 42 0RF Follow up/Referrals: Jazmine Aguilar MD [Physician] - 01/15/24 2:00 pm (Monday01/15/24 at 2 pm for catheter removal) Diet/Activity/Treatments Diet: Diet as Tolerated Activity: No heavy lifting, nothing more than a gal of milk Skin/Wound/Dressing Care Report to your healthcare provider any signs of infection, such as:: chills, fever, increased pain, unusual drainage and unusual redness Dressing: Remove outer pink dressings with attached gauze on morning after a shower Leave Steri-Strips in place May shower daily Visit Report/Discharge Packet Instructions: Urinary Incontinence Surgery -- Sling Procedures, DI for Hysterectomy, DI for Laparoscopy, How to Care for Your Claros Catheter -- Female, DI for Prescription Opioid Use Stand Alone Forms: Patient Portal/API, Stroke Signs & Symptoms, Surgery Discharge Discharge Data Primary Care Provider: Paresh Radford Attending Provider: Jazmine Aguilar Quality VTE Deep Vein Thrombosis/Pulmonary Embolism Present on Admission: No
== END 2024-01-09 12:09 | disposition home or self-care (01) ==
LOC: OR 06:37 → AC 06:42
PROVIDERS: Family Provider Family Medicine; PCP Family Medicine; Referring Provider Obstetrics & Gynecology; Visit Provider Obstetrics & Gynecology
PROC: 0UT9FZZ Resection of Uterus, Via Natural or Artificial Opening With Percutaneous Endoscopic Assistance (ICD-10-PCS; CPT 58552; principal; 2024-01-08 07:45)
PROC: 0TSD0ZZ Reposition Urethra, Open Approach (ICD-10-PCS; CPT 58552; 2024-01-08 07:45)
DX: N81.2 Incomplete uterovaginal prolapse (principal); N39.3 Stress incontinence (female) (male); N83.8 Other noninflammatory disorders of ovary, fallopian tube and broad ligament; N72 Inflammatory disease of cervix uteri; N84.0 Polyp of corpus uteri
CPT/HCPCS: 58552; 57288; 36415; 80048; 85025; C1713; C1771; J0136; J0171; J0690; J1100; J1170; J1885; J2405; J2704; J3010

== ENCOUNTER → 2024-02-21 11:26 | Outpatient (CLI) | payer OTHER, SELFPAY ==
[2024-01-08 06:52] VITALS: BMI 40.3
== END ==
PROVIDERS: Family Provider Family Medicine; PCP Family Medicine; Visit Provider Obstetrics & Gynecology
DX: R31.9 Hematuria, unspecified (principal); R82.998 Other abnormal findings in urine
CPT/HCPCS: 87086

== ENCOUNTER → 2024-06-18 16:46 | Outpatient (CLI) | payer OTHER, SELFPAY ==
[2024-01-08 06:52] VITALS: BMI 40.3
[2024-06-17 10:24] VITALS: BMI 40.3
--- NOTE | 2024-06-18 16:47 | DI.MRI.S_ITS ---
PROCEDURE: MR CERVICAL SPINE WO CON INDICATIONS: Cervical Spine pain, bilateral shoulder pain TECHNIQUE: Noncontrast sagittal T1 spin echo and T2 fast spin echo, sagittal STIR, foraminal oblique sagittal T2 fast spin echo, and axial gradient echo or T2 fast spin echo through the cervical spine. COMPARISON: None. FINDINGS: Alignment and Curvature: Reversal the normal cervical lordosis Bone Marrow: Marrow demonstrates normal overall signal. Spinal Cord: Visualized spinal cord has normal size and signal. No cerebellar tonsillar herniation. Paraspinous Soft Tissues: No paravertebral masses. Prevertebral soft tissues are normal in thickness. C2-C3: Normal appearance. C3-C4: Arthropathy. Moderate bilateral foraminal stenosis. No central stenosis. C4-C5: Arthropathy. Posterior disc osteophyte complex. Moderate central stenosis. Moderate bilateral foraminal stenosis greater on right C5-C6: Posterior disc osteophyte complex. Moderate central stenosis. Arthropathy. Bilateral moderate foraminal stenosis C6-C7: Arthropathy. Moderate bilateral foraminal stenosis. No central stenosis. C7-T1: Central or foraminal stenosis IMPRESSION: Multilevel degenerative disc disease and arthropathy results in varying degrees of central and foraminal stenosis including moderate central stenosis C4-5 and C5-6 Approved by: Brandon Perkins M.D. on 06/19/2024 at 16:57
--- NOTE | 2024-06-18 16:47 | DI.MG.S_ITS ---
BILATERAL DIGITAL SCREENING MAMMOGRAM 3D/2D WITH CAD POST LUMPECTOMY: 06/18/2024 CLINICAL: Routine screening. Personal history of right breast cancer. Family history of Breast Cancer. Comparison is made to exams dated: 06/07/2023 mammogram, 05/26/2022 mammogram, 05/24/2021 mammogram, 04/25/2020 mammogram, 04/24/2019 mammogram, and 07/13/2018 mammogram - [facility]. The breasts are heterogeneously dense, which may obscure small masses (category c / 51-75% glandular tissue). Current study was also evaluated with a Computer Aided Detection (CAD) system. There are benign post operative findings and biopsy clip in the right breast. No significant masses, calcifications, or other findings are seen in either breast. There has been no significant interval change. IMPRESSION: BENIGN There is no mammographic evidence of malignancy. A 1 year screening mammogram is recommended. This exam was interpreted at Station ID: [id number]. NOTE: For mammograms, a report in lay terms will be sent to the patient. Approximately 15% of breast malignancies will not be visualized mammographically. In the management of a palpable breast mass, a negative mammogram must not discourage biopsy of a clinically suspicious lesion. Electronically Signed By: Shital Ghosh M.D., Ph.D. kaleigh/angella:06/19/2024 17:31:51 letter sent: Normal Exam ACR BI-RADS Category 2: Benign
== END ==
PROVIDERS: Family Provider Family Medicine; PCP Family Medicine; Referring Provider Family Medicine; Visit Provider Family Medicine
DX: M47.812 Spondylosis without myelopathy or radiculopathy, cervical region (principal); Z12.31 Encounter for screening mammogram for malignant neoplasm of breast; Z85.3 Personal history of malignant neoplasm of breast; Z80.3 Family history of malignant neoplasm of breast; R92.333 Mammographic heterogeneous density, bilateral breasts; M25.511 Pain in right shoulder; M25.512 Pain in left shoulder; M48.02 Spinal stenosis, cervical region; M50.321 Other cervical disc degeneration at C4-C5 level
CPT/HCPCS: 72141; 77063; 77067

== ENCOUNTER 2024-07-16 17:57 | Emergency (ER) | payer OTHER, SELFPAY ==
[2024-06-17 10:24] VITALS: BMI 40.3
[2024-07-16] VITALS (10 sets, daily range): BP systolic 184–210; BP diastolic 80–93; PULSE 8–120; RESP 15–20; TEMP 37.7; O2SAT 90–98; BMI 40.1
[2024-07-16 18:46] LABS: COVID-19 CEPHEID 4-PLEX PCR Negative (Negative); Influenza A - CEPHEID Flu A POSITIVE (NEGATIVE); Influenza B - CEPHEID Flu B NEGATIVE (NEGATIVE); Respiratory Syncytial Virus Negative (Negative)
--- NOTE | 2024-07-16 19:51 | ED_ITS ---
HPI - URI/Sore Throat General Chief Complaint: Upper Respiratory Symptoms Stated Complaint: fever, body aches t-1 Time Seen by Provider: 07/16/24 19:16 Mode of arrival: Ambulatory History of Present Illness HPI Narrative: 69yoF presents for 1 day of fevers, body aches, nonproductive cough with wheezing. Taking tylenol at home for symptoms. Last dose 1300 today. Related Data Previous Rx's Medication Instructions Recorded atorvastatin 40 mg tablet (Lipitor) 40 mg PO DAILY #90 tabs 09/08/23 citalopram 20 mg tablet 20 mg PO QDAY #90 tabs 09/08/23 doxycycline hyclate 50 mg tablet 50 mg PO DAILY #90 tabs 09/08/23 hydrocodone 5 mg-acetaminophen 325 1 - 2 tab PO Q6HP PRN pain #42 tabs 09/08/23 mg tablet losartan 50 mg tablet 50 mg PO DAILY #90 tabs 09/08/23 sulfacetamide sodium-sulfur 10 %-5 1 applic topical DAILY #170 grams 09/08/23 % (w/w) topical cleanser trazodone 100 mg tablet 100 mg PO HS #90 tabs 09/08/23 estradiol 0.01% (0.1 mg/gram) See Rx Instructions .Route 09/18/23 vaginal cream .COMPLEX #42.5 grams oxycodone 5 mg tablet 5 mg PO Q4H PRN pain #14 tabs 01/09/24 gabapentin 300 mg capsule 300 mg PO BID PRN nerve irritation 06/11/24 #90 caps oseltamivir 75 mg capsule 75 mg PO BID 5 days #10 caps 07/16/24 Allergies Allergy/AdvReac Type Severity Reaction Status Date / Time sumatriptan AdvReac Mild HEART Verified 07/16/24 17:59 PALPITATION Patient History Medical History LBBB (left bundle branch block) Sleep apnea CAD (coronary artery disease) Abnormal myocardial perfusion study Knee problem (~2003) Acne (~1985) Measles Chicken pox BRCA negative (~2004) Breast cancer (~2004) Surgical History Status post laparoscopic assisted vaginal hysterectomy (LAVH) Status post left unicompartmental knee replacement Status post right unicompartmental knee replacement Anesthesia Status post wrist surgery (~2005) History of breast surgery (~2004) Family History Father Cancer Social History household members: spouse Smoking Status: Never smoker alcohol intake: current Smoking Status: Never smoker alcohol intake frequency: 0-2 drinks per day Exam Initial Vital Signs Initial Vital Signs: Vital Signs Temperature 99.8 F H 07/16/24 17:59 Pulse Rate 8 L 07/16/24 17:59 Respiratory Rate 15 07/16/24 17:59 Blood Pressure 194/93 H 07/16/24 17:59 Pulse Oximetry 92 07/16/24 17:59 Oxygen Delivery Method Room Air 07/16/24 17:59 Const: Awake, alert, no acute distress, nontoxic appearing Cardiac: regular rate, regular rhythm RESP: unlabored, soft upper expiratory wheezes MSK: no edema, full range of motion, pulses equal Skin: Warm, Dry, intact, no rashes Neuro: AO x3, CN II-XII grossly intact, moves all extremities Course Orders Ordered: ED Orders 07/16/24 19:51 Chest [XR chest 1V] Stat Discontinued Medications Albuterol (Albuterol Hfa Prepack) 1 box MISC DIRECTED ONE Stop: 07/16/24 20:39 Albuterol/Ipratropium (Albuterol/Ipratropium 3 Ml Ampul) 3 ml INH NOW ONE Stop: 07/16/24 19:52 Last Admin: 07/16/24 20:16 Dose: 3 ml Documented By: JIMENEZ Dexamethasone (Dexamethasone 10 Mg/Ml Vial) 10 mg PO NOW ONE Stop: 07/16/24 20:26 Last Admin: 07/16/24 20:50 Dose: 10 mg Documented By: AB Oseltamivir Phosphate (Oseltamivir 75 Mg Capsule) 225 mg PO NOW ONE Stop: 07/16/24 20:41 Last Admin: 07/16/24 20:51 Dose: 225 mg Documented By: AB Vital Signs Vital signs: Vital Signs - 8 hr 07/16/24 19:30 07/16/24 19:31 07/16/24 19:31 Pulse Rate 98 H 98 H Respiratory Rate 18 Blood Pressure 210/88 H Pulse Oximetry 92 90 L Oxygen Delivery Method Fraction of Inspired Oxygen 07/16/24 19:41 07/16/24 19:41 07/16/24 20:00 Pulse Rate 98 H 96 H Respiratory Rate Blood Pressure 193/80 H Pulse Oximetry 92 90 L Oxygen Delivery Method Fraction of Inspired Oxygen 07/16/24 20:01 07/16/24 20:01 07/16/24 20:19 Pulse Rate 95 H 102 H Respiratory Rate 20 Blood Pressure 184/80 H Pulse Oximetry 91 98 Oxygen Delivery Method Room Air Fraction of Inspired Oxygen 21 07/16/24 20:30 Pulse Rate 107 H Respiratory Rate Blood Pressure Pulse Oximetry 93 Oxygen Delivery Method Room Air Fraction of Inspired Oxygen MDM - URI/Sore Throat Lab Data Labs: Lab Results 07/16/24 Range/Units 18:03 SARS-CoV-2 (PCR) Negative (Negative) Influenza A (RT-PCR) Flu a positive H (NEGATIVE) Influenza B (RT-PCR) Flu b negative (NEGATIVE) RSV (PCR) Negative (Negative) Imaging Data Chest x-ray: Radiologist's Impression: PROCEDURE: XR CHEST 1V INDICATIONS: fever, cough, flu+ TECHNIQUE: One view of the chest was acquired. COMPARISON: [facility], , XR CHEST 2V, 08/25/2022, 10:29. FINDINGS: Surgical changes and devices: A right axillary clip is seen. Lungs and pleura: An incomplete inspiratory result is noted, causing a crowded appearance to the lung markings. No focal infiltrates are seen. No pneumothorax or significant pleural effusions are seen. Mediastinum: Mediastinal contours appear normal. Heart size is normal. Bones and chest wall: No suspicious bony lesions. Age-appropriate bony degener ative changes are seen. Overlying soft tissues appear unremarkable. IMPRESSION: Low lung volumes, without an acute abnormality seen by plain film. Dictated by: Juve Deluna M.D. on 07/16/2024 at 19:26 Approved by: Juev Deluna M.D. on 07/16/2024 at 19:26 [facility] Narrative Medical decision making narrative: Patient presenting for symptoms consistent with viral syndrome. Tested positive for influenza A. Patient did have soft expiratory wheezes on lung exam, denies history of COPD or other lung disease. Wheezing resolved after DuoNeb administration. Patient offered albuterol inhaler for home use, she states that she has an inhaler at home already from a previous sickness and is happy to use that. Tamiflu provided to patient prior to discharge. Discharge Plan Departure Patient Disposition: Home Clinical Impression: Influenza A Instructions: DI for Influenza -- Adult Activity Restrictions/Additional Instructions: Take Tylenol and ibuprofen as needed for discomfort or fever. Make sure you stay hydrated and drink plenty of fluids. Prescriptions: New oseltamivir 75 mg capsule 75 mg PO BID 5 Days Qty: 10 0RF No Action estradiol 0.01 % (0.1 mg/gram) cream See Rx Instructions .ROUTE .COMPLEX Qty: 42.5 3RF Rx Instructions: Insert 0.5gm intravaginal and a small amount to the outside daily x30 days then 2x weekly atorvastatin [Lipitor] 40 mg tablet 40 mg PO DAILY Qty: 90 3RF citalopram 20 mg tablet 20 mg PO QDAY Qty: 90 3RF doxycycline hyclate 50 mg tablet 50 mg PO DAILY Qty: 90 3RF losartan 50 mg tablet 50 mg PO DAILY Qty: 90 3RF trazodone 100 mg tablet 100 mg PO HS Qty: 90 3RF sulfacetamide sodium-sulfur 10-5 % (w/w) cleanser 1 applic topical DAILY Qty: 170 1RF hydrocodone-acetaminophen 5-325 mg tablet 1 - 2 tab PO Q6HP PRN (Reason: pain) Qty: 42 0RF gabapentin 300 mg capsule 300 mg PO BID PRN (Reason: nerve irritation) Qty: 90 1RF oxycodone 5 mg tablet 5 mg PO Q4H PRN (Reason: pain) Qty: 14 0RF Referrals: Paresh Radford MD [Primary Care Provider] - Stand Alone Forms: Patient Portal/API/Survey
[2024-07-16] MEDS: ALBUTEROL/IPRATROPIUM 3 ML AMPUL INH (20:16)
[2024-07-16] MEDS: DEXAMETHASONE 10 MG/ML VIAL PO (20:50)
[2024-07-16] MEDS: OSELTAMIVIR 75 MG CAPSULE 225 MG PO (20:51)
== END 2024-07-16 21:00 | disposition home or self-care (01) ==
PROVIDERS: Emergency Medicine; Emergency Provider Emergency Medicine; Family Provider Family Medicine; PCP Family Medicine
DX: J10.1 Influenza due to other identified influenza virus with other respiratory manifestations (principal)
CPT/HCPCS: 0241U; 71045; 94640; 99283; J1100

== ENCOUNTER → 2024-12-26 07:52 | Outpatient (CLI) | payer OTHER, SELFPAY ==
[2024-06-17 10:24] VITALS: BMI 40.3
[2024-12-26 08:17] LABS: Add Manual Diff / Slide Review NO; Basophils Absolute Auto 100 /uL (0-100); Basophils Percent Auto 1.2 % (0-2); Eosinophils Absolute Auto 100 /uL (0-450); Eosinophils Percent Auto 2.7 % (2-4); Hemoglobin 13.8 g/dL (12.0-16.0); Lymphocytes Absolute Auto 900 /uL (1100-4500); Mean Corpuscular HGB Conc 33.6 % (30-36); Mean Corpuscular Hemoglobin 30.5 PG (26-34); Mean Corpuscular Volume 90.9 fL (80-100); Monocytes Absolute Auto 300 /uL (0-900); Neutrophils Absolute Auto 3000 /uL (1500-7000); Neutrophils Percent Auto 68.1 % (50-75); Platelet Count 185 X10^3/uL (150-400); Red Blood Cell Count 4.51 X10^6/uL (4.0-5.2); Red Cell Distribution Width 13.2 % (11.6-14.8); White Blood Cell Count 4.5 X10^3/uL (4.5-11.0)
[2024-12-26 08:29] LABS: Alanine Aminotransferase 22 IU/L (<35); Albumin 4.1 g/dL (3.5-5.0); Albumin Globulin Ratio 1.6 (1.0-2.8); Alkaline Phosphatase 98 U/L (38-126); Aspartate Aminotransferase 23 IU/L (14-36); BUN Creatinine Ratio 16.1 (6-22); Bilirubin Total 0.7 mg/dL (0.2-1.3); Blood Urea Nitrogen 14 mg/dL (7-17); Calcium 8.9 mg/dL (8.4-10.2); Carbon Dioxide 28 mmol/L (22-32); Chloride 105 mmol/L (98-107); Cholesterol 149 mg/dL (140-199); Estimated Glomerular Filt Rate > 60 mL/min (>60); Globulin 2.5 g/dL (1.7-4.1); Glucose 111 mg/dL (70-99); HDL Cholesterol 51 mg/dL (40-60); HEMOLYSIS < 15 (0-50); LDL Cholesterol Calculated 85 mg/dL (<100); Potassium 4.2 mmol/L (3.4-5.1); Sodium 139 mmol/L (137-145); Total Protein 6.6 g/dL (6.3-8.2); Triglycerides 64 mg/dL (35-150)
[2024-12-26 08:36] LABS: Hemoglobin A1C% w Est Avg Glu 5.5 % (4.0-6.0)
[2024-12-26 08:57] LABS: TSH w/ Reflex to FT4 1.14 uIU/mL (0.47-4.68)
== END ==
PROVIDERS: Family Provider Family Medicine; PCP Family Medicine; Referring Provider Internal Medicine Cardiovascular Disease; Visit Provider Internal Medicine Cardiovascular Disease
DX: E78.5 Hyperlipidemia, unspecified (principal); Z13.1 Encounter for screening for diabetes mellitus; I10 Essential (primary) hypertension; I25.10 Atherosclerotic heart disease of native coronary artery without angina pectoris
CPT/HCPCS: 36415; 80053; 80061; 83036; 83735; 84443; 85025

== ENCOUNTER → 2025-01-05 09:40 | Outpatient (CLI) | payer OTHER, SELFPAY ==
[2024-06-17 10:24] VITALS: BMI 40.3
--- NOTE | 2025-01-05 09:41 | DI.CT.S_ITS ---
PROCEDURE: CT CHEST WO CON INDICATIONS: chronic cough and chest tightness TECHNIQUE: Noncontrast 5 mm thick sections acquired from the pulmonary apices to the posterior costophrenic angles. 1 mm lung window, 5 mm thick coronal and sagittal and 7 mm axial MIP reformats were then acquired. For radiation dose reduction, the following was used: automated exposure control, adjustment of mA and/or kV according to patient size. COMPARISON: [facility], CR, XR CHEST 1V, 07/16/2024, 19:54. FINDINGS: Image quality: Diagnostic. Lower Neck: No enlarged lymph nodes. Thyroid: No thyroid nodules which require sonographic follow up, per consensus guidelines. Axillae: No enlarged lymph nodes. Surgical clips are seen in right axilla. Chest Wall: Unremarkable. Bones: No aggressive appearing bony lesions.. Lungs and Pleura: No pneumothorax or pleural effusions. No consolidation or suspicious nodules. Heart: Heart size is normal. No pericardial effusion. Thoracic Vessels: The aorta and pulmonary arteries demonstrate normal size. 2 vessel coronary artery atherosclerotic calcifications are seen. Mediastinum and [place]: No enlarged lymph nodes. Esophagus: No wall thickening. Small hiatal hernia. Upper Abdomen: Cholelithiasis without gallbladder wall thickening. No abnormality is seen in the liver, spleen and bilateral adrenal glands. IMPRESSION: 1. No focal infiltrate, pleural effusion or pneumothorax. Airway is patent. 2. [id number] 2 vessel coronary artery atherosclerotic calcifications. No mediastinal or hilar lymphadenopathy. 3. Cholelithiasis without CT evidence of acute cholecystitis. Dictated by: Lalit Turk M.D. on 01/05/2025 at 21:05 Approved by: Lalit Turk M.D. on 01/05/2025 at 21:10
== END ==
LOC: CT 09:40
PROVIDERS: PCP Family Medicine; Referring Provider Family Medicine; Visit Provider Family Medicine
DX: I25.10 Atherosclerotic heart disease of native coronary artery without angina pectoris (principal); R05.3 Chronic cough; K44.9 Diaphragmatic hernia without obstruction or gangrene; K80.20 Calculus of gallbladder without cholecystitis without obstruction
CPT/HCPCS: 71250